=== PATIENT | female | born 1945 | race Caucasian/White ===

== ENCOUNTER 2017-03-01 18:39 | Emergency (ER) | payer MEDICARE ==
[2017-03-01 19:05] VITALS: RESP 16
--- NOTE | 2017-03-01 21:26 | ED ---
General Adult HPI - General Chief complaint: Eye Problems Stated complaint: blurry vision following med change Time Seen by Provider: 03/01/17 20:16 Source: patient, family, RN notes reviewed Mode of arrival: ambulatory Limitations: no limitations - History of Present Illness Initial comments: Chief complaint and history of present illness this is a 71-year-old female who for the last week has been using a new insulin medication Toujeo.. After starting use she noticed slight blurred vision on the right eye. And slight watering. She was told to come the emergency room. Patient states that her vision is otherwise good with her glasses on and when she raises her eyelid. She does present with mild edema to the right eyelid as opposed to the left mild redness along upper eyelid rim. - Related Data Home Medications Medication Instructions Recorded Confirmed Citalopram Hydrobromide 20 mg PO DAILY 03/01/17 03/01/17 [Citalopram HBr] Furosemide [Lasix] 20 mg PO DAILY 03/01/17 03/01/17 INSULIN LISPRO (humaLOG) [HumaLOG] 30 units SQ AC-TID 03/01/17 03/01/17 Insulin Glargine,Hum.rec.anlog 35 unit SQ DAILY 03/01/17 03/01/17 [Toujeo Solostar] Levothyroxine Sodium [Synthroid] 100 mcg PO DAILY 03/01/17 03/01/17 Metoprolol Succinate (ER) [Toprol 100 mg PO DAILY 03/01/17 03/01/17 Xl] Potassium Chloride [Klor-Con 10] 10 meq PO DAILY 03/01/17 03/01/17 glyBURIDE [Diabeta] 5 mg PO AC-BID 03/01/17 03/01/17 Allergies Allergy/AdvReac Type Severity Reaction Status Date / Time metformin Allergy Diarrhea Verified 03/01/17 19:05 Review of Systems ROS Statement: Those systems with pertinent positive or pertinent negative responses have been documented in the HPI. Review of systems no complaints other than listed above history of COPD insulin- dependent diabetes, she has eye disorders being followed by an venue attendant. Hyperlipidemia. The patient's heart catheterization with a stent intact. She hasn't had had a . She has ALLERGIES to metformin. Family history noncontributory. Non-drinker. Former smoker. ROS Other: All systems not noted in ROS Statement are negative. Past Medical History Past Medical History: COPD, Diabetes Mellitus, Eye Disorder, Hyperlipidemia History of Any Multi-Drug Resistant Organisms: None Reported Past Surgical History: Section, Heart Catheterization With Stent Past Psychological History: No Psychological Hx Reported Smoking Status: Former smoker Past Alcohol Use History: None Reported Past Drug Use History: None Reported General Exam - General Exam Comments Initial Comments: General: The patient is awake and alert, in no distress, and does not appear acutely ill. With a complaint of slight sensation of blurred vision to the right eye but not the left. Medications include Toujeo. Up to date states underwear occasions she might have angioedema or cataracts with this medication. Eye: Pupils are equal, round and reactive to light, extra-ocular movements are intact ; there is normal conjunctiva bilaterally. No signs of icterus. The right eyelid appears mildly more edematous than the left. The lid margin is mildly reddened. Patient admits that when she lifts her eyelid blurred vision decreases and goes away. It appears as though she has mild blepharitis for unilateral angioedema. She does complain of more tearing out of the right eye. No pain. Neurological: No neuro deficits, no signs of stroke. Limitations: no limitations Course Vital Signs 03/01/17 19:01 Temperature 96.9 F L Pulse Rate 77 Respiratory 16 Rate Blood Pressure 122/58 O2 Sat by Pulse 95 Oximetry Medical Decision Making - Medical Decision Making Medical decision-making. On physical examination appears to the right eyelid is slightly edematous. The lid margin on the upper eyelid is mildly red but no stye could be seen. The lids were everted no chest lesions were noted. Her visual acuity is normal with glasses. Less blurred and no blurriness when she mechanically lifts her eyelid at of the way. The patient will be referred to her venue attendant. We discussed possibility of ALLERGIC reaction, angioedema possibly related to her new insulin and/or blepharitis. There is no crustiness in the morning, no foreign body sensation, no pain. Just a sensation of fullness in the eyelid. Patient will be told to take antihistamine. If she can stop taking the new insulin preparation and go back to her old insulin she should. Disposition Clinical Impression: Angioedema Disposition: HOME SELF-CARE Condition: Fair Instructions: Angioedema (ED) Additional Instructions: Notify your doctor and I suggest stopping the Toujeo insulin shots. Use an antihistamine such as Claritin [id number]. Follow-up with the venue attendant and family doctor. Referrals: Matt Eden III, MD [Primary Care Provider] - 1-2 days Time of Disposition: 21:26
[2017-03-01 21:41] VITALS: BP 142/60; PULSE 68; TEMP 97.4
== END 2017-03-01 21:38 | disposition home or self-care (01) ==
LOC: EC 18:39
DX: T78.3XXA Angioneurotic edema, initial encounter (principal); E11.9 Type 2 diabetes mellitus without complications; Z87.891 Personal history of nicotine dependence; Z88.8 Allergy status to other drugs, medicaments and biological substances; Z79.4 Long term (current) use of insulin; Z79.84 Long term (current) use of oral hypoglycemic drugs; Z79.899 Other long term (current) drug therapy
CPT/HCPCS: 99283

== ENCOUNTER → 2017-05-24 | Outpatient (CLI) | payer MEDICARE ==
--- NOTE | 2017-05-24 11:39 | FL ---
EXAMINATION TYPE: FL barium swallow DATE OF EXAM: 05/24/2017 COMPARISON: NONE HISTORY: Myasthenia gravis, food getting stuck TECHNIQUE: A single contrast UGI study is performed. FINDINGS: 9 seconds of fluoroscopy time was provided. Fluoroscopic imaging overhead radiographs were obtained. Esophagus dilates to normal caliber has normal contour to the gastroesophageal junction. Gastroesopha geal junction opens to normal caliber. A secondary contraction was evident during the examination. A few mild tertiary contractions may be p resent during the exam. There is incomplete stripping of the esophageal bolus the horizontal drinking position. IMPRESSIONS: 1. Mild presbyesophagus. No acute abnormality evident
== END | disposition home or self-care (01) ==
LOC: RADFLWHC 10:08
PROVIDERS: ATTEND Psychiatry & Neurology Neurology
DX: K22.8 Other specified diseases of esophagus (principal)
CPT/HCPCS: 74220

== ENCOUNTER → 2018-02-05 | Outpatient (CLI) | payer MEDICARE ==
--- NOTE | 2018-02-07 11:38 | MM ---
Reason for exam: screening (asymptomatic). Last mammogram was performed 2 years and 9 months ago. History: Patient is postmenopausal. Physical Findings: A clinical breast exam by your physician is recommended on an annual basis and results should be correlated with mammographic findings. MG 3D Screening Mammo W/Cad Bilateral CC and MLO view(s) were taken. Prior study comparison: May 11, 2015, mammogram. There are scattered fibroglandular densities. Stable faint calcifications central posterior left breast. No significant changes when compared with prior studies. ASSESSMENT: Negative, BI-RAD 1 RECOMMENDATION: Routine screening mammogram of both breasts in 1 year.
== END | disposition home or self-care (01) ==
LOC: RADMAMWWP 17:00
PROVIDERS: ATTEND Family Medicine
DX: Z12.31 Encounter for screening mammogram for malignant neoplasm of breast (principal)
CPT/HCPCS: 77063; 77067

== ENCOUNTER → 2019-01-03 | Outpatient (CLI) | payer MEDICARE ==
--- NOTE | 2019-01-03 10:39 | US ---
EXAMINATION TYPE: US abdomen complete DATE OF EXAM: 01/03/2019 COMPARISON: NONE CLINICAL HISTORY: K80.80 OTHER CHOLELITHIASIS,R19.7 DIARRHEA. EXAM MEASUREMENTS: Liver Length: 15.4 cm Gallbladder Wall: 0.2 cm CBD: 0.4 cm Spleen: 11.7 cm Right Kidney: 10.9 x 4.9 x 4.8 cm Left Kidney: 11.3 x 5.4 x 4.7 cm Patient morbidly obese. Technically difficult and limited study. Pancreas: somewhat obscured by bowel gas, heterogeneous Liver: Increased attenuation, decreased visualization of vessels suggestive of fatty infiltrate Gallbladder: cholelithiasis Evidence for sonographic Newton's sign: no CBD: limited view, appears wnl Spleen: wnl Right Kidney: cyst noted on superior pole measuring 3.3 x 3.0 x 2.8cm Left Kidney: lobular contour, cyst measuring 1.4 x 1.5 x 1.2cm Upper IVC: wnl Abd Aorta: obscured by bowel gas The intrahepatic portion of the IVC and proximal abdominal aorta are within normal limits. Common b ile duct is unremarkable. The visualized portions of the pancreas are homogenous. The spleen is unr emarkable. Kidneys are symmetric and free of hydronephrosis. No solid renal lesions are seen. IMPRESSION: 1. Probable hepatic steatosis. 2. Uncomplicated cholelithiasis. 3. Renal cystic changes.
== END | disposition home or self-care (01) ==
LOC: RADUSWWP 09:25
PROVIDERS: ATTEND Family Medicine
DX: K80.20 Calculus of gallbladder without cholecystitis without obstruction (principal); N28.1 Cyst of kidney, acquired; R19.7 Diarrhea, unspecified
CPT/HCPCS: 76700

== ENCOUNTER → 2019-01-14 | Outpatient (CLI) | payer MEDICARE ==
--- NOTE | 2019-01-15 10:13 | CT ---
EXAMINATION TYPE: CT abdomen wo con DATE OF EXAM: 01/14/2019 COMPARISON: Ultrasound abdomen 01/03/2019 HISTORY: Disorder of kidney/ureter. Abnormal ultrasound CT DLP: 648 mGycm Automated exposure control for dose reduction was used. TECHNIQUE: Helical acquisition of images was performed from the lung bases through the top of iliac crest to include entire abdomen following oral contrast only. CONTRAST: Performed with Oral Contrast and without IV contrast. FINDINGS: Lack of intravenous contrast could compromise sensitivity. Some calcification present at th e root of aorta and likely within the coronary arteries LUNG BASES: No significant abnormality is appreciated. LIVER/GB: Low-attenuation within the liver likely due to hepatic steatosis, there are multiple gallst ones within the gallbladder. PANCREAS: No significant abnormality is seen. SPLEEN: No significant abnormality is seen. ADRENALS: No significant abnormality is seen. KIDNEYS: Exophytic hypodense focus in the upper pole the right kidney measures 3.5 cm and likely repr esents simple cyst. Left kidney shows posterior cortical cyst measuring 15 mm also likely representin g simple cortical cyst. BOWEL: No significant abnormality is seen. LYMPH NODES: No significan abnormality is appreciated. OSSEOUS STRUCTURES: No significant abnormality is seen. FREE AIR: No Free Air visible ASCITES: None visible. RETROPERITONEAL ADENOPATHY: No Retroperitoneal Adenopathy visible. OTHER: Atheromatous changes present within the aorta iliac locations. Degenerative disc changes, face t arthropathy visualized lumbar spine. IMPRESSION: NONCONTRAST EXAM. CHOLELITHIASIS. PROBABLE HEPATIC STEATOSIS. PROBABLE SIMPLE CYSTS IN THE KIDNEYS.
== END | disposition home or self-care (01) ==
LOC: RADCTMAIN 15:37
PROVIDERS: ATTEND Family Medicine
DX: K80.20 Calculus of gallbladder without cholecystitis without obstruction (principal)
CPT/HCPCS: 74150; 82565; 84520

== ENCOUNTER 2020-05-07 11:28 | Observation (INO) | payer MEDICARE ==
--- NOTE | 2020-05-07 12:27 | XR ---
EXAMINATION TYPE: XR chest 2V DATE OF EXAM: 05/07/2020 COMPARISON: Chest CT May 30, 2017 HISTORY: Altered mental status and weakness. TECHNIQUE: Frontal and lateral views of the chest are obtained. FINDINGS: There is mild chronic parenchymal changes bilaterally without suspicious new focal air spa ce opacity, pleural effusion, or pneumothorax seen. The cardiac silhouette size is stable and upper limits of normal with atherosclerotic change in the aortic knob. The osseous structures are intact. IMPRESSION: No acute cardiopulmonary process. No significant change from prior.
[2020-05-07 12:39] LABS: Basophils # (A) 0.1 k/uL (0-0.2); Basophils % (A) 1 %; Eosinophils # (A) 0.6 k/uL (0-0.7); Eosinophils % (A) 5 %; HCT 43.4 % (34.0-46.0); HGB 14.1 gm/dL (11.4-16.0); Lymphocytes # (A) 1.8 k/uL (1.0-4.8); Lymphocytes % (A) 14 %; MCH 28.3 pg (25.0-35.0); MCHC 32.4 g/dL (31.0-37.0); MCV 87.4 fL (80.0-100.0); Mean Platelet Volume 7.3; Monocytes # (A) 0.7 k/uL (0-1.0); Monocytes % (A) 6 %; Neutrophils % (A) 73 %; Platelet Count 263 k/uL (150-450); RBC 4.96 m/uL (3.80-5.40); RDW 13.6 % (11.5-15.5); WBC 12.3 k/uL (3.8-10.6)
[2020-05-07 12:48] LABS: Albumin 4.2 g/dL (3.5-5.0); Calcium 9.7 mg/dL (8.4-10.2); Total Bilirubin 0.8 mg/dL (0.2-1.3); Total Protein 7.1 g/dL (6.3-8.2)
[2020-05-07 13:07] LABS: Potassium 5.7 mmol/L (3.5-5.1)
[2020-05-07 13:13] LABS: INR 0.9 (<1.2); Partial Thromboplastin Time 23.3 sec (22.0-30.0); Prothrombin Time 9.6 sec (9.0-12.0)
[2020-05-07 14:00] VITALS: RESP 16
--- NOTE | 2020-05-07 14:07 | CT ---
EXAMINATION TYPE: CT brain wo con DATE OF EXAM: 05/07/2020 HISTORY: Neuro deficit acute onset. Code stroke. Headache this week with difficulty speaking today. CT DLP: 1110.8 mGycm. Automated Exposure Control for Dose Reduction was Utilized. TECHNIQUE: CT scan of the head is performed without contrast. COMPARISON: None. FINDINGS: There is no acute intracranial hemorrhage or midline shift identified. There is diffuse v entricular and sulcal prominence consistent with diffuse age-related cerebral atrophy. There is low- attenuation in the periventricular white matter consistent with chronic small vessel ischemic change. Hyperostosis frontalis. The globes are intact and the visualized sinuses are clear. IMPRESSION: No acute intracranial hemorrhage or midline shift. There is mild to moderate diffuse ag e-related cerebral atrophy and chronic small vessel ischemic change noted.
--- NOTE | 2020-05-07 14:10 | ED ---
Neuro HPI - General Source: patient Mode of arrival: ambulatory Limitations: no limitations - History of Present Illness Is the patient presenting with stroke symptoms?: No <Marilee Varner - Last Filed: 05/07/20 14:36> <KinzaShmuel Ladonna - Last Filed: 05/07/20 15:10> - General Chief Complaint: Neuro Symptoms/Deficit Stated Complaint: neuro deficit Time Seen by Provider: 05/07/20 11:40 - History of Present Illness Initial Comments: 74-year-old female presenting today for chief complaint of on and off headaches. Patient states that she has had a headache since 05/01. She states that it has occurred on and off. She denies sudden onset of being the worst headache of her life she states that her younger years she had history of chronic migraines but has not had some quite some time. Patient states as above her left eyebrow. Patient states that this occurred on Sunday and they have been on and off intermittent signs. She denies current headache but states while she was at her hair salon this morning she difficulty articular speech she states that this resolved and she is not experienced since she states she did notice yesterday she felt like she had left-sided facial tingling and this morning when she woke up she had right hand tingling, and difference in sensation than the left hand. Patient states all symptoms are resolved at this time she denies any visual changes diplopia current headache nausea vomiting head trauma she denies any neck stiffness. Patient denies a chest pain shortness of breath palpitations or known history of atrial fibrillation. Patient denies any previous CVA or TIAs. Patient states that she believes she is dyslipidemia. Patient denies any current weakness she denies any dizziness or off balance sensation. Patient a ppears well and nontoxic and is within good spirits upon arrival. Signs within acceptable limits. NIH 0. (Marilee Varner) - Related Data Home Medications: Home Medications Medication Instructions Recorded Confirmed Citalopram Hydrobromide 20 mg PO DAILY 03/01/17 05/07/20 [Citalopram HBr] Furosemide [Lasix] 20 mg PO DAILY 03/01/17 03/01/17 Levothyroxine Sodium [Synthroid] 100 mcg PO DAILY 03/01/17 03/01/17 Potassium Chloride [Klor-Con 10] 10 meq PO DAILY 03/01/17 05/07/20 glyBURIDE [Diabeta] 5 mg PO AC-BID 03/01/17 05/07/20 Allergy Tablet Unknown 0 mg PO DAILY 05/07/20 05/07/20 Aspirin [Adult Low Dose Aspirin EC] 81 mg PO DAILY 05/07/20 05/07/20 Exenatide Microspheres [Bydureon 2 mg SQ Q7D 05/07/20 05/07/20 Pen] Insulin Glargine,Hum.rec.anlog 55 unit SQ HS 05/07/20 05/07/20 [Lantus Solostar] Januvia Unknown Strength 0 mg PO DAILY 05/07/20 05/07/20 Meloxicam [Mobic] 15 mg PO DAILY 05/07/20 05/07/20 Metoprolol Succinate [Toprol XL] 25 mg PO DAILY 05/07/20 05/07/20 Pyridostigmine [Mestinon] 60 mg PO TID 05/07/20 05/07/20 Simvastatin 10 mg PO DAILY 05/07/20 05/07/20 Allergies/Adverse Reactions: Allergies Allergy/AdvReac Type Severity Reaction Status Date / Time metformin Allergy Diarrhea Verified 05/07/20 13:20 Review of Systems ROS Other: All systems not noted in ROS Statement are negative. <Marilee Varner - Last Filed: 05/07/20 14:36> ROS Other: All systems not noted in ROS Statement are negative. <Shmuel Echols - Last Filed: 05/07/20 15:10> ROS Statement: Those systems with pertinent positive or pertinent negative responses have been documented in the HPI. General Exam Limitations: no limitations Head exam: Present: atraumatic Eye exam: Present: normal appearance, PERRL Pupils: Present: normal accommodation Respiratory exam: Present: normal lung sounds bilaterally Cardiovascular Exam: Present: regular rate, normal rhythm GI/Abdominal exam: Present: soft, normal bowel sounds Rectal exam: Present: deferred Neurological exam: Present: alert, oriented X3, CN II-XII intact, normal gait Expanded Neurological exam: Present: other (memory intact, usp, intermediate and immediate) Patient oriented to: Present: person, place, time Speech: Present: fluid speech Cranial nerves: EOM's Intact: Normal, Gag Reflex: Normal, Tongue Deviation: Normal, Facial Sensation: Normal Upper motor neuron: Nirav Neglect: Normal, Pronator Drift: Normal, Sensory Extinction: Normal Sensory exam: Upper Extremity Light Touch: Normal, Upper Extremity Temperature: Normal, Lower Extremity Light Touch: Normal, Lower Extremity Temperature: Normal Motor strength exam: RUE: 5, LUE: 5, RLE: 5, LLE: 5 (painful left knee) DTR: Patellar (R): 2+, Patellar (L): 2+ Eye Response: (4) open spontaneously Motor Response: (6) obeys commands Verbal Response: (5) oriented Psychiatric exam: Present: normal affect <Marilee Varner L - Last Filed: 05/07/20 14:36> Stroke MDM - Lab Data Result diagrams: 05/07/20 12:07 05/07/20 12:07 <Marilee Varner L - Last Filed: 05/07/20 14:36> - Lab Data Result diagrams: 05/07/20 12:07 05/07/20 12:07 <Shmuel Echols N - Last Filed: 05/07/20 15:10> - Lab Data Lab Results 05/07/20 05/07/20 05/07/20 Range/Units 12:07 12:07 12:07 WBC 12.3 H (3.8-10.6) k/uL RBC 4.96 (3.80-5.40) m/uL Hgb 14.1 (11.4-16.0) gm/dL Hct 43.4 (34.0-46.0) % MCV 87.4 (80.0-100.0) fL MCH 28.3 (25.0-35.0) pg MCHC 32.4 (31.0-37.0) g/dL RDW 13.6 (11.5-15.5) % Plt Count 263 (150-450) k/uL Neutrophils % 73 % Lymphocytes % 14 % Monocytes % 6 % Eosinophils % 5 % Basophils % 1 % Neutrophils # 9.0 H (1.3-7.7) k/uL Lymphocytes # 1.8 (1.0-4.8) k/uL Monocytes # 0.7 (0-1.0) k/uL Eosinophils # 0.6 (0-0.7) k/uL Basophils # 0.1 (0-0.2) k/uL PT 9.6 (9.0-12.0) sec INR 0.9 (<1.2) APTT 23.3 (22.0-30.0) sec Sodium 133 L (137-145) mmol/L Potassium 5.7 H (3.5-5.1) mmol/L Chloride 104 (98-107) mmol/L Carbon Dioxide 23 (22-30) mmol/L Anion Gap 6 mmol/L BUN 21 H (7-17) mg/dL Creatinine 0.94 (0.52-1.04) mg/dL Est GFR (CKD-EPI)AfAm 69 (>60 ml/min/1.73 sqM) Est GFR (CKD-EPI)NonAf 60 (>60 ml/min/1.73 sqM) Glucose 232 H (74-99) mg/dL Calcium 9.7 (8.4-10.2) mg/dL Total Bilirubin 0.8 (0.2-1.3) mg/dL AST 39 H (14-36) U/L ALT 26 (4-34) U/L Alkaline Phosphatase 93 (38-126) U/L Troponin I (0.000-0.034) ng/mL Total Protein 7.1 (6.3-8.2) g/dL Albumin 4.2 (3.5-5.0) g/dL 05/07/20 Range/Units 12:07 WBC (3.8-10.6) k/uL RBC (3.80-5.40) m/uL Hgb (11.4-16.0) gm/dL Hct (34.0-46.0) % MCV (80.0-100.0) fL MCH (25.0-35.0) pg MCHC (31.0-37.0) g/dL RDW (11.5-15.5) % Plt Count (150-450) k/uL Neutrophils % % Lymphocytes % % Monocytes % % Eosinophils % % Basophils % % Neutrophils # (1.3-7.7) k/uL Lymphocytes # (1.0-4.8) k/uL Monocytes # (0-1.0) k/uL Eosinophils # (0-0.7) k/uL Basophils # (0-0.2) k/uL PT (9.0-12.0) sec INR (<1.2) APTT (22.0-30.0) sec Sodium (137-145) mmol/L Potassium (3.5-5.1) mmol/L Chloride (98-107) mmol/L Carbon Dioxide (22-30) mmol/L Anion Gap mmol/L BUN (7-17) mg/dL Creatinine (0.52-1.04) mg/dL Est GFR (CKD-EPI)AfAm (>60 ml/min/1.73 sqM) Est GFR (CKD-EPI)NonAf (>60 ml/min/1.73 sqM) Glucose (74-99) mg/dL Calcium (8.4-10.2) mg/dL Total Bilirubin (0.2-1.3) mg/dL AST (14-36) U/L ALT (4-34) U/L Alkaline Phosphatase (38-126) U/L Troponin I 0.012 (0.000-0.034) ng/mL Total Protein (6.3-8.2) g/dL Albumin (3.5-5.0) g/dL - Medical Decision Making 74-year-old female with left-sided facial numbness, right upper extremity numbness, symptoms resolved. Workup in the emergency department for and scrotal hemorrhage or mass effect. Patient has an NIH of 0. She normally takes a baby aspirin but has been off this medication secondary to a procedure plan for her knee. She did receive a full strength aspirin 325 mg as well as Plavix in the emergency department. I discussed case with Dr. Granda who doesn't recommend these medications. I also discussed the case with Dr. Merchant who will accept admission. Dr. Granda is okay with admission and recommends MRI. This is in the setting of current neurology coverage however there is no neurology coverage over the weekend. (Shmuel Echols) Past Medical History Past Medical History: COPD, Diabetes Mellitus, Eye Disorder, Hyperlipidemia History of Any Multi-Drug Resistant Organisms: None Reported Past Surgical History: Section, Heart Catheterization With Stent Past Psychological History: No Psychological Hx Reported Smoking Status: Never smoker Past Alcohol Use History: Occasional Past Drug Use History: None Reported <Marilee Varner - Last Filed: 05/07/20 14:36> Course Vital Signs 05/07/20 05/07/20 05/07/20 11:30 13:59 14:04 Temperature 98.2 F Pulse Rate 72 68 Respiratory 18 16 Rate Blood Pressure 134/74 179/76 O2 Sat by Pulse 98 98 Oximetry Critical Care Time Critical Care Time: Yes Total Critical Care Time: 35 <Shmuel cEhols - Last Filed: 05/07/20 15:10> Disposition <Marilee Varner - Last Filed: 05/07/20 14:36> Is patient prescribed a controlled substance at d/c from ED?: No Decision to Admit Reason: Admit from EC Decision Date: 05/07/20 Decision Time: 15:10 <Shmuel Echols - Last Filed: 05/07/20 15:10> Clinical Impression: Alteration in speech, Facial paresthesia, TIA (transient ischemic attack) Disposition: ADMITTED IP TO THIS [facility] Condition: Stable Referrals: Matt Eden III, MD [Primary Care Provider] - 1-2 days
--- NOTE | 2020-05-07 14:17 | CT ---
EXAMINATION TYPE: CT angio head neck DATE OF EXAM: 05/07/2020 HISTORY: Neuro Deficit acute onset. Code stroke. Difficulty speaking today. COMPARISON: NONE CT DLP: 687.6 mGycm. Automated Exposure Control for Dose Reduction was Utilized. TECHNIQUE: CTA scan of the head and neck are performed with IV Contrast, patient injected with 65 mL of Isovue 370, axial images are obtained, coronal and sagittal reformatted images are reviewed. Thre e-D reconstructed images are created on an independent workstation and reviewed. FINDINGS: Carotid/Vascular Structures: Normal 3 vessel origin from aortic arch. Right common carotid artery mica ws normal origin from right brachiocephalic artery. There is mild to moderate mixed plaque at right c arotid bulb extending into proximal internal carotid artery without significant stenosis. Patent righ t external carotid artery without significant stenosis. There is mild mixed plaque along the mid aspe ct of the left common carotid artery. There is more severe mixed plaque in left carotid bulb with mor e dense calcified plaque extending into the external carotid artery causing significant stenosis. Lef t internal carotid artery shows no significant stenosis with minimal calcified plaque extending into it. Mild calcified plaque distal right vertebral artery. Vertebral arteries are patent to basilar junctio n. Patent bilateral posterior communicating arteries. No significant focal stenosis or aneurysmal fozia nge in the posterior circulation. Images of the anterior circulation show hypoplastic anterior commun icating artery. There is no significant focal stenosis or aneurysmal change. Other: Heterogeneity and subcentimeter nodularity in small-sized thyroid felt present. Moderate spurr ing C5-C6 and C6-C7 levels. Posterior spurring effaces the anterior thecal sac at these levels. IMPRESSION: 1. No significant stenosis or aneurysmal change at the level of the [place]. 2. No significant stenosis in common or internal carotid arteries bilaterally. Incidental significant stenosis in the left external carotid artery noted.
[2020-05-07] MEDS ORDERED: ASPIRIN 325 MG TAB PO STA ×2 (14:43→15:05)
[2020-05-07] MEDS ORDERED: CLOPIDOGREL 75 MG TAB PO STA (15:05)
[2020-05-07] MEDS ORDERED: ACETAMINOPHEN TAB 325 MG TAB PO PRN (15:05)
[2020-05-07] MEDS: SODIUM CHLORIDE 0.9% 1,000 ML IV SCH (15:51)
--- NOTE | 2020-05-07 16:31 | ECHOF ---
Referral Reason:Thrombus MEASUREMENTS -------- HEIGHT: 157.5 cm WEIGHT: 102.1 kg BP: 176/76 RVIDd: 3.1 cm (< 3.3) IVSd: 1.4 cm (0.6 - 1.1) LVIDd: 5.2 cm (3.9 - 5.3) LVPWd: 1.5 cm (0.6 - 1.1) IVSs: 2.0 cm LVIDs: 4.0 cm LVPWs: 1.7 cm LA Diam: 3.7 cm (2.7 - 3.8) LAESV Index (A-L): 23.22 ml/m Ao Diam: 3.3 cm (2.0 - 3.7) AV Cusp: 2.2 cm (1.5 - 2.6) MV EXCURSION: 12.842 mm (> 18.000) MV EF SLOPE: 52 mm/s (70 - 150) EPSS: 0.4 cm MV E Eduardo: 0.67 m/s MV DecT: 324 ms MV A Eduardo: 0.99 m/s MV E/A Ratio: 0.67 FINDINGS -------- Sinus rhythm. This was a technically good study. The left ventricular size is normal. There is moderate concentric left ventricular hypertrophy. O verall left ventricular systolic function is normal with, an EF between 60 - 65 %. The right ventricle is normal in size. Normal LA size by volume 22+/-6 ml/m2. The right atrium is normal in size. Interatrial and interventricular septum intact. There is mild aortic valve sclerosis. The mitral valve is normal. The tricuspid valve appears structurally normal. Trace/mild (physiologic) pulmonic regurgitation. The aortic root size is normal. IVC Not well visulized. There is no pericardial effusion. CONCLUSIONS -------- 1. The left ventricular size is normal. 2. There is moderate concentric left ventricular hypertrophy. 3. Overall left ventricular systolic function is normal with, an EF between 60 - 65 %. 4. Trace/mild (physiologic) pulmonic regurgitation. 5. There is no pericardial effusion. DENTAL RECEPTIONIST: Adelaide Zuluaga RD
[2020-05-07 18:12] LABS: Glucose,Whole Blood 178 mg/dL (75-99)
[2020-05-07 20:59] LABS: Glucose,Whole Blood 221 mg/dL (75-99)
[2020-05-07] MEDS: PYRIDOSTIGMINE 60 MG TAB PO SCH (20:59)
[2020-05-07] MEDS ORDERED: INSULIN DETEMIR (LEVEMIR) 100 UNIT/ML SYR SQ SCH (21:00)
[2020-05-07] MEDS: INSULIN ASPART (NovoLOG) 100 UNIT/ML VIAL SQ SCH (21:06)
[2020-05-08] MEDS: SODIUM CHLORIDE 0.9% 1,000 ML IV SCH (01:04)
[2020-05-08 04:18] LABS: Cholesterol 158 mg/dL (<200); HDL Cholesterol 29 mg/dL (40-60); LDL Cholesterol,Calculated 79 mg/dL (0-99); Triglycerides 251 mg/dL (<150)
[2020-05-08] MEDS ORDERED: LEVOTHYROXINE 100 MCG TAB PO SCH (06:00)
[2020-05-08 06:45] LABS: Glucose,Whole Blood 147 mg/dL (75-99)
[2020-05-08] MEDS: INSULIN ASPART (NovoLOG) 100 UNIT/ML VIAL SQ SCH ×2 (06:57→13:23)
[2020-05-08] MEDS: PYRIDOSTIGMINE 60 MG TAB PO SCH (08:08)
[2020-05-08] MEDS ORDERED: MELOXICAM 7.5 MG TAB PO SCH (09:00)
[2020-05-08] MEDS ORDERED: ATORVASTATIN 10 MG TAB PO SCH (09:00)
[2020-05-08] MEDS ORDERED: CITALOPRAM HYDROBROMIDE 20 MG TAB PO SCH (09:00)
[2020-05-08] MEDS ORDERED: METOPROLOL SUCCINATE (ER) 25 MG TAB.ER.24H PO SCH (09:00)
[2020-05-08] MEDS ORDERED: ATORVASTATIN 40 MG TAB PO SCH (09:00)
[2020-05-08] MEDS ORDERED: ASPIRIN 81 MG PO SCH (09:00)
[2020-05-08] MEDS ORDERED: ASPIRIN 325 MG TAB PO SCH (09:00)
[2020-05-08 09:12] VITALS: PULSE 68
[2020-05-08 13:21] LABS: Glucose,Whole Blood 220 mg/dL (75-99)
--- NOTE | 2020-05-08 13:52 | MR ---
MR brain without contrast HISTORY: Neuro deficit, stroke suspected Multiplanar multisequence imaging through the brain There is no restricted diffusion to suggest subacute ischemia. There are normal vascular flow voids p resent. There is no hemorrhage or hydrocephalus. Corpus callosum, pituitary, cervical medullary junct ion, cerebellopontine angles are normal. Periventricular white matter shows scattered hyperintensitie s on inversion recovery T2-weighted sequences. There is cortical atrophy. Orbits show symmetric appea shanti. IMPRESSION: Age-related changes of atrophy and probable chronic small vessel ischemia.
[2020-05-08 14:58] LABS: Basophils % (A) 1 %; Eosinophils # (A) 0.2 k/uL (0-0.7); Eosinophils % (A) 3 %; HCT 38.2 % (34.0-46.0); Lymphocytes # (A) 1.4 k/uL (1.0-4.8); Lymphocytes % (A) 18 %; MCH 28.3 pg (25.0-35.0); MCHC 31.6 g/dL (31.0-37.0); MCV 89.6 fL (80.0-100.0); Monocytes # (A) 0.4 k/uL (0-1.0); Monocytes % (A) 5 %; Neutrophils # (A) 5.9 k/uL (1.3-7.7); Neutrophils % (A) 73 %; Platelet Count 201 k/uL (150-450); RBC 4.26 m/uL (3.80-5.40); RDW 13.9 % (11.5-15.5); WBC 8.1 k/uL (3.8-10.6)
[2020-05-08 15:16] LABS: Calcium 8.9 mg/dL (8.4-10.2); Potassium 4.5 mmol/L (3.5-5.1)
[2020-05-08 17:43] VITALS: BP 120/66; TEMP 97.8
--- NOTE | 2020-05-21 16:03 | P.HPIM ---
History of Present Illness H&P Date: 05/08/20 Chief Complaint: neuro deficit 74-year-old female presenting today for chief complaint of on and off headaches. Patient states that she has had a headache since 05/01. She states that it has occurred on and off. She denies sudden onset of being the worst headache of her life she states that her younger years she had history of chronic migraines but has not had some quite some time. Patient states as above her left eyebrow. Patient states that this occurred on Sunday and they have been on and off intermittent signs. She denies current headache but states while she was at her hair salon this morning she difficulty articular speech she states that this resolved and she is not experienced since she states she did notice yesterday she felt like she had left-sided facial tingling and this morning when she woke up she had right hand tingling, and difference in sensation than the left hand. Patient states all symptoms are resolved at this time she denies any visual changes diplopia current headache nausea vomiting head trauma she denies any neck stiffness. Patient denies a chest pain shortness of breath palpitations or known history of atrial fibrillation. Patient denies any previous CVA or TIAs. Patient states that she believes she is dyslipidemia. Patient denies any current weakness she denies any dizziness or off balance sensation. Patient appears well and nontoxic and is within good spirits upon arrival. Signs within acceptable limits. NIH 0. Past Medical History Past Medical History: COPD, Diabetes Mellitus, Eye Disorder, Hyperlipidemia, Hypertension, Osteoarthritis (OA) Additional Past Medical History / Comment(s): gets Cortisone injections in both knees. skin cancer removed from nose. Myasthenia Gravis History of Any Multi-Drug Resistant Organisms: None Reported Past Surgical History: Section, Heart Catheterization With Stent Past Anesthesia/Blood Transfusion Reactions: No Reported Reaction Date of Last Stent Placement:: 2004 Past Psychological History: No Psychological Hx Reported Smoking Status: Never smoker Past Alcohol Use History: Occasional Past Drug Use History: None Reported Additional Drug Use History / Comment(s): smoked very little as a teenager only - Past Family History Mother Family Medical History: Cancer, Myocardial Infarction ([place]) Father Family Medical History: COPD, Rheumatoid Arthritis ([place]) Medications and Allergies Home Medications Medication Instructions Recorded Confirmed Type Citalopram Hydrobromide 20 mg PO DAILY 03/01/17 05/07/20 History [Citalopram HBr] Levothyroxine Sodium [Synthroid] 100 mcg PO DAILY 03/01/17 05/07/20 History Potassium Chloride [Klor-Con 10] 10 meq PO DAILY 03/01/17 05/07/20 History glyBURIDE [Diabeta] 5 mg PO AC-BID 03/01/17 05/07/20 History Aspirin [Adult Low Dose Aspirin EC] 81 mg PO DAILY 05/07/20 05/07/20 History Exenatide Microspheres [Bydureon 2 mg SQ Q7D 05/07/20 05/07/20 History Pen] Insulin Glargine,Hum.rec.anlog 55 unit SQ HS 05/07/20 05/07/20 History [Lantus Solostar] Meloxicam [Mobic] 15 mg PO DAILY 05/07/20 05/07/20 History Meloxicam [Mobic] 15 mg PO DAILY 05/07/20 05/07/20 History Metoprolol Succinate [Toprol XL] 25 mg PO DAILY 05/07/20 05/07/20 History Pyridostigmine [Mestinon] 60 mg PO BID 05/07/20 05/07/20 History Simvastatin 10 mg PO DAILY 05/07/20 05/07/20 History sitaGLIPtin PHOSPHATE [Januvia] 50 mg PO DAILY 05/07/20 05/07/20 History Allergies Allergy/AdvReac Type Severity Reaction Status Date / Time metformin Allergy Diarrhea Verified 05/07/20 18:15 Physical Exam Vitals: Vital Signs Temp Pulse Pulse Resp BP BP BP 05/08/20 09:00 98.1 F 68 16 159/74 05/08/20 08:00 05/08/20 03:05 97.7 F 69 136/69 05/07/20 19:57 98.2 F 73 134/72 05/07/20 16:26 98.2 F 65 16 124/72 05/07/20 14:04 179/76 05/07/20 13:59 68 16 Pulse Ox 05/08/20 09:00 98 05/08/20 08:00 96 05/08/20 03:05 95 05/07/20 19:57 94 L 05/07/20 16:26 97 05/07/20 14:04 05/07/20 13:59 98 Intake and Output 05/07/20 05/08/20 05/08/20 22:59 06:59 14:59 Intake Total 225 Output Total 175 175 Balance 225 -175 -175 Intake: Oral 225 Output: Urine 175 175 Other: # Voids 1 1 1 Weight 102.058 kg Head exam: Present: atraumatic Eye exam: Present: normal appearance, PERRL Pupils: Present: normal accommodation Respiratory exam: Present: normal lung sounds bilaterally Cardiovascular Exam: Present: regular rate, normal rhythm GI/Abdominal exam: Present: soft, normal bowel sounds Rectal exam: Present: deferred Neurological exam: Present: alert, oriented X3, CN II-XII intact, normal gait; Sensory exam: Upper Extremity Light Touch: Normal, Upper Extremity Temperature: Normal, Lower Extremity Light Touch: Normal, Lower Extremity Temperature: Normal Motor strength exam: RUE: 5, LUE: 5, RLE: 5, LLE: 5 (painful left knee); DTR: Patellar (R): 2+, Patellar (L): 2+ Results CBC & Chem 7: 05/08/20 14:42 05/08/20 14:42 Labs: Abnormal Lab Results - Last 24 Hours (Table) 05/07/20 05/07/20 05/07/20 Range/Units 12:07 12:07 12:07 WBC 12.3 H (3.8-10.6) k/uL Neutrophils # 9.0 H (1.3-7.7) k/uL Sodium 133 L (137-145) mmol/L Potassium 5.7 H (3.5-5.1) mmol/L BUN 21 H (7-17) mg/dL Glucose 232 H (74-99) mg/dL POC Glucose (mg/dL) (75-99) mg/dL AST 39 H (14-36) U/L Triglycerides 251 H (<150) mg/dL HDL Cholesterol 29 L (40-60) mg/dL 05/07/20 05/07/20 05/08/20 Range/Units 18:09 20:58 06:43 WBC (3.8-10.6) k/uL Neutrophils # (1.3-7.7) k/uL Sodium (137-145) mmol/L Potassium (3.5-5.1) mmol/L BUN (7-17) mg/dL Glucose (74-99) mg/dL POC Glucose (mg/dL) 178 H 221 H 147 H (75-99) mg/dL AST (14-36) U/L Triglycerides (<150) mg/dL HDL Cholesterol (40-60) mg/dL Thrombosis Risk Factor Assmnt - Choose All That Apply Any of the Below Risk Factors Present?: Yes Each Factor Represents 1 point: Abnormal pulmonary function (COPD), Obesity (BMI >25) Other Risk Factors: Yes Each Risk Factor Represents 3 Points: Age 75 years or older Other congenital or acquired thrombophilia - If yes, enter type in comment: No Thrombosis Risk Factor Assessment Total Risk Factor Score: 5 Thrombosis Risk Factor Assessment Level: High Risk Assessment and Plan Assessment: 1. TIA versus CVA - Patient's symptoms completely resolved while in ED; patient was discussed with on-call neurology and was recommended to be started on aspirin 325 mg daily; patient received Plavix in ED which was not recommended to be continued by neurology; patient did undergo CTA head and neck to rule out large vessel occlusion which was unremarkable; neurology recommended admission for an MRI with outpatient follow-up if MRI is negative 2. Hyperkalemia; treated in ED; we will monitor electrolytes closely and treat as needed 3. Mild leukocytosis; possibly reactive; no signs of infection; monitor CBC 4. Mild renal injury; IV fluid hydration in form of normal saline; monitor strict COURTNEY's, daily weights, renal function and electrolytes DVT prophylaxis SCDs CODE STATUS; full code
--- NOTE | 2020-05-21 16:06 | P.DS ---
Providers Date of admission: 05/07/20 15:05 Expected date of discharge: 05/08/20 Attending physician: Raya Merchant Consults: 05/07/20 15:06 Consult Physician Routine Consulting Provider: Ramon Granda Consult Reason/Comments: TIA Do you want consulting provider notified?: Already Contacted Primary care physician: [facility] Course: 74-year-old female presenting today for chief complaint of on and off headaches. Patient states that she has had a headache since 05/01. She states that it has occurred on and off. She denies sudden onset of being the worst headache of her life she states that her younger years she had history of chronic migraines but has not had some quite some time. Patient states as above her left eyebrow. Patient states that this occurred on Sunday and they have been on and off intermittent signs. She denies current headache but states while she was at her hair salon this morning she difficulty articular speech she states that this resolved and she is not experienced since she states she did notice yesterday she felt like she had left-sided facial tingling and this morning when she woke up she had right hand tingling, and difference in sensation than the left hand. Patient states all symptoms are resolved at this time she denies any visual changes diplopia current headache nausea vomiting head trauma she denies any neck stiffness. Patient denies a chest pain shortness of breath palpitations or known history of atrial fibrillation. Patient denies any previous CVA or TIAs. Patient states that she believes she is dyslipidemia. Patient denies any current weakness she denies any dizziness or off balance sensation. Patient appears well and nontoxic and is within good spirits upon arrival. Signs within acceptable limits. NIH 0. Patient was given aspirin and Plavix in ED and on-call neurology was consulted; they recommended patient undergo CTA head and neck to rule out large vessel disease which was done in ED and was negative; patient was admitted to complete workup with an MRI; patient remained completely asymptomatic and MRI was negative; patient was discharged home to follow-up with outpatient neurology Patient Condition at Discharge: Stable Plan - Discharge Summary New Discharge Prescriptions: Continue glyBURIDE [Diabeta] 5 mg PO AC-BID Potassium Chloride [Klor-Con 10] 10 meq PO DAILY Citalopram Hydrobromide [Citalopram HBr] 20 mg PO DAILY Levothyroxine Sodium [Synthroid] 100 mcg PO DAILY Metoprolol Succinate [Toprol XL] 25 mg PO DAILY Aspirin [Adult Low Dose Aspirin EC] 81 mg PO DAILY Pyridostigmine [Mestinon] 60 mg PO BID Exenatide Microspheres [Bydureon Pen] 2 mg SQ Q7D Meloxicam [Mobic] 15 mg PO DAILY Insulin Glargine,Hum.rec.anlog [Lantus Solostar] 55 unit SQ HS Simvastatin 10 mg PO DAILY sitaGLIPtin PHOSPHATE [Januvia] 50 mg PO DAILY Meloxicam [Mobic] 15 mg PO DAILY Discharge Medication List Citalopram Hydrobromide [Citalopram HBr] 20 mg PO DAILY 03/01/17 [History] Levothyroxine Sodium [Synthroid] 100 mcg PO DAILY 03/01/17 [History] Potassium Chloride [Klor-Con 10] 10 meq PO DAILY 03/01/17 [History] glyBURIDE [Diabeta] 5 mg PO AC-BID 03/01/17 [History] Aspirin [Adult Low Dose Aspirin EC] 81 mg PO DAILY 05/07/20 [History] Exenatide Microspheres [Bydureon Pen] 2 mg SQ Q7D 05/07/20 [History] Insulin Glargine,Hum.rec.anlog [Lantus Solostar] 55 unit SQ HS 05/07/20 [History] Meloxicam [Mobic] 15 mg PO DAILY 05/07/20 [History] Meloxicam [Mobic] 15 mg PO DAILY 05/07/20 [History] Metoprolol Succinate [Toprol XL] 25 mg PO DAILY 05/07/20 [History] Pyridostigmine [Mestinon] 60 mg PO BID 05/07/20 [History] Simvastatin 10 mg PO DAILY 05/07/20 [History] sitaGLIPtin PHOSPHATE [Januvia] 50 mg PO DAILY 05/07/20 [History] Follow up Appointment(s)/Referral(s): Matt Eden III, MD [Primary Care Provider] - 1-2 days Patient Instructions/Handouts: Transient Ischemic Attack (DC) Discharge Disposition: HOME SELF-CARE
== END 2020-05-08 17:52 | disposition home or self-care (01) ==
LOC: EC 11:28 → 3NCARDOBS 15:05
PROVIDERS: ADMIT Internal Medicine; ATTEND Internal Medicine
DX: R51.9 Headache, unspecified (principal); R20.2 Paresthesia of skin; R47.9 Unspecified speech disturbances; J44.9 Chronic obstructive pulmonary disease, unspecified; E11.9 Type 2 diabetes mellitus without complications; E78.5 Hyperlipidemia, unspecified; Z95.5 Presence of coronary angioplasty implant and graft; D72.829 Elevated white blood cell count, unspecified; E87.5 Hyperkalemia; I10 Essential (primary) hypertension; Z79.1 Long term (current) use of non-steroidal anti-inflammatories (NSAID); Z79.82 Long term (current) use of aspirin; Z79.84 Long term (current) use of oral hypoglycemic drugs; Z79.890 Hormone replacement therapy; Z79.899 Other long term (current) drug therapy; Z82.49 Family history of ischemic heart disease and other diseases of the circulatory system; Z82.5 Family history of asthma and other chronic lower respiratory diseases; Z85.828 Personal history of other malignant neoplasm of skin
CPT/HCPCS: 96360; 96361; 99291; 36415; 94760; 93005; 93306; 97161; 80061; 80053; 80048; 84484; 85025 ×2; 85610; 85730; 83036; 71046; 70496; 70450; 70498; 70551; G0378 ×2; Q9967

== ENCOUNTER → 2020-06-03 | Outpatient (CLI) | payer MEDICARE ==
--- NOTE | 2020-06-03 10:59 | CT ---
EXAMINATION TYPE: CT lumbar spine wo con DATE OF EXAM: 06/03/2020 COMPARISON: CT abdomen 01/14/2019 HISTORY: 74-year-old female M47.817, low back pain x 4 weeks TECHNIQUE: Contiguous axial scanning of the lumbar spine without IV contrast. Coronal and sagittal re constructions performed. CT DLP: 1621.7 mGycm Automated exposure control for dose reduction was used. FINDINGS: 9 mm benign lipid rich left adrenal adenoma. Partially visualized gallstones measuring up to 1.4 cm. Renal cysts measuring up to 3.3 cm. Cortical defect lateral upper pole left kidney suggesting sequela of prior vascular or infectious insult. Superior endplate deformity of T12 with resultant anterior wedging and 25% anterior height loss. No p aravertebral soft tissue abnormality or retropulsion into the spinal canal. Findings chronic when com pared to 01/14/2019. Hypertrophic facet arthropathy is present throughout. Some bridging anterior endplate spondylosis towards the right at L1-L3 levels. Grade 1 retrolisthesis just below at L3-L4. Moderate degenerative disc disease is present throughout with variable disc desiccation, disc narrowi ng, and disc bulging. Additional ligamentum flavum thickening at L4-L5. Bulging discs or disc osteophyte complexes along with ligamentum flavum thickening results in focal s evere spinal canal stenosis at L4-L5 and mild at T11-T12 and L1-L2. On the left, changes result in moderate neural foraminal stenosis at L4-L5 and L5-S1, more mild at L3 -L4. On the right, changes result in mild to moderate neural foraminal narrowing at L4-L5 and L5-S1 and mi ld at L3-L4. IMPRESSION: 1. OLD SUPERIOR ENDPLATE DEFORMITY WITH SECONDARY ANTERIOR WEDGING AT T12. 2. BRIDGING ANTERIOR ENDPLATE SPONDYLOSIS FROM L1-L3 LEVELS. MODERATE DEGENERATIVE DISC DISEASE BELOW AT L3-L4 AND L4-L5 ALONG WITH MULTILEVEL HYPERTROPHIC FACET ARTHROPATHY AND DEGENERATIVE GRADE 1 RET ROLISTHESIS AT L3-L4. 3. CHANGES RESULT IN A FOCAL SEVERE SPINAL CANAL STENOSIS AT L4-L5 AND MILD AT T11-T12 AND L1-L2. 4. VARIABLE MODERATE NEURAL FORAMINAL STENOSES IN THE LOWER LUMBAR SPINE ABOVE. 5. CHOLELITHIASIS.
== END | disposition home or self-care (01) ==
LOC: RADCTMAIN 08:21
PROVIDERS: ATTEND Physical Medicine & Rehabilitation
DX: M48.061 Spinal stenosis, lumbar region without neurogenic claudication (principal); M48.07 Spinal stenosis, lumbosacral region; M43.16 Spondylolisthesis, lumbar region; M51.36 Other intervertebral disc degeneration, lumbar region; M47.816 Spondylosis without myelopathy or radiculopathy, lumbar region
CPT/HCPCS: 72131

== ENCOUNTER 2020-07-05 18:39 | Emergency (ER) | payer MEDICARE ==
[2020-07-05] MEDS ORDERED: METOCLOPRAMIDE 5 MG/ML 2 ML VIAL IVP STA (19:33)
[2020-07-05] MEDS ORDERED: MORPHINE SULFATE 4 MG/ML SYRINGE IV STA (19:33)
[2020-07-05] MEDS ORDERED: SODIUM CHLORIDE 0.9% 500 ML 500 ML IV STA (19:33)
[2020-07-05] MEDS ORDERED: diphenhydrAMINE 50 MG/ML 1 ML VIAL IVP STA (19:33)
[2020-07-05 20:19] LABS: Basophils # (A) 0.1 k/uL (0-0.2); Basophils % (A) 0 %; Eosinophils # (A) 0.1 k/uL (0-0.7); Eosinophils % (A) 1 %; HGB 13.7 gm/dL (11.4-16.0); Lymphocytes # (A) 0.8 k/uL (1.0-4.8); Lymphocytes % (A) 5 %; MCH 29.1 pg (25.0-35.0); MCHC 31.9 g/dL (31.0-37.0); MCV 91.1 fL (80.0-100.0); Mean Platelet Volume 7.5; Monocytes # (A) 0.5 k/uL (0-1.0); Monocytes % (A) 3 %; Neutrophils # (A) 15.7 k/uL (1.3-7.7); Neutrophils % (A) 91 %; Platelet Count 284 k/uL (150-450); RBC 4.72 m/uL (3.80-5.40); RDW 14.4 % (11.5-15.5); WBC 17.3 k/uL (3.8-10.6)
[2020-07-05 20:29] LABS: Albumin 3.9 g/dL (3.5-5.0); Calcium 9.8 mg/dL (8.4-10.2); Potassium 4.9 mmol/L (3.5-5.1); Total Bilirubin 0.7 mg/dL (0.2-1.3); Total Protein 6.4 g/dL (6.3-8.2)
--- NOTE | 2020-07-05 20:40 | CT ---
EXAMINATION TYPE: CT brain wo con DATE OF EXAM: 07/05/2020 COMPARISON: Prior CT 05/07/2020 HISTORY: ams, confusion CT DLP: 1127.4 mGycm Automated exposure control for dose reduction was used. Helical imaging through the brain FINDINGS: There are cerebral vascular calcifications. Cortical atrophy, periventricular white matter low-attenu ation shows a similar appearance. Calvarium is intact, paranasal sinuses and mastoid air cells as vis ualized are normal. IMPRESSION: NO ACUTE ABNORMALITY. AGE-RELATED CHANGES OF ATROPHY AND PROBABLE CHRONIC SMALL VESSEL ISCHEMIA.
[2020-07-05 21:40] VITALS: RESP 16
[2020-07-05 21:50] LABS: Appearance,Urine Cloudy (Clear); Bilirubin,Urine Negative (Negative); Blood,Urine Negative (Negative); Color,Urine Yellow; Glucose,Urine (UA) Trace (Negative); Hyaline Casts,Urine 5 /lpf (0-2); Ketones,Urine Trace (Negative); Leukocyte Esterase,Urine Large (Negative); Mucus,Urine Rare /hpf; Nitrite,Urine Negative (Negative); Protein,Urine Trace (Negative); RBC,Urine 1 /hpf (0-5); Specific Gravity,Urine 1.028 (1.001-1.035); Squamous Epithelial Cell,Urine 1 /hpf (0-4); Urobilinogen,Urine <2.0 mg/dL (<2.0); WBC,Urine 42 /hpf (0-5)
--- NOTE | 2020-07-05 22:09 | XR ---
EXAMINATION TYPE: XR chest 2V DATE OF EXAM: 07/05/2020 COMPARISON: Prior chest x-ray 05/07/2020 HISTORY: Leukocytosis TECHNIQUE: Frontal and lateral views of the chest are obtained. FINDINGS: There is no focal air space opacity, pleural effusion, or pneumothorax seen. The cardiac silhouette size is within normal limits. The osseous structures are intact. IMPRESSION: No acute cardiopulmonary process.
[2020-07-05] MEDS ORDERED: cefTRIAXone IN SWFI 1,000 MG/10 ML SYRINGE IVP STA (22:39)
[2020-07-05] MEDS ORDERED: CEPHALEXIN 500MG STARTER PACK 4 CAP BTL PO STA (23:00)
--- NOTE | 2020-07-05 23:02 | ED ---
General Adult HPI - General Chief complaint: Headache Stated complaint: Headache Time Seen by Provider: 07/05/20 19:09 Source: patient, family, RN notes reviewed, old records reviewed Mode of arrival: wheelchair Limitations: no limitations - History of Present Illness Initial comments: 74-year-old female patient to ED for evaluation. Patient reports that she woke up with a migraine headache today. She reports it feels identical to her mi graine headaches in the past. Reports it is behind her right eye. She's had some nausea and vomiting. That she has been having some mild sciatica-like back pain for the last 6 weeks that is being managed by [facility] that is not the reason she is here today and she wishes to have her headache addressed. Systemic: Pt denies fatigue, fever/chills, rash. Pt denies weakness, night sweats, weight loss. Neuro: Pt denies visual disturbances, syncope or pre-syncope. HEENT: Pt denies ocular discharge or irritation, otalgia, rhinorrhea, pharyngitis or notable lymphadenopathy. Cardiopulmonary: Pt denies chest pain, SOB, heart palpitations, dyspnea on exertion. Abdominal/GI: Pt denies abdominal pain, n/v/d. : Pt denies dysuria, burning w/ urination, frequency/urgency. Denies new onset urinary or bowel incontinence. MSK: Pt denies myalgia, loss of strength or function in extremities. Neuro: Pt denies new onset weakness, paresthesias. - Related Data Home Medications Medication Instructions Recorded Confirmed Citalopram Hydrobromide 20 mg PO DAILY 03/01/17 07/05/20 [Citalopram HBr] Levothyroxine Sodium [Synthroid] 100 mcg PO DAILY 03/01/17 07/05/20 Potassium Chloride [Klor-Con 10] 10 meq PO DAILY 03/01/17 07/05/20 glyBURIDE [Diabeta] 5 mg PO AC-BID 03/01/17 07/05/20 Aspirin [Adult Low Dose Aspirin EC] 81 mg PO DAILY 05/07/20 07/05/20 Exenatide Microspheres [Bydureon 2 mg SQ TH 05/07/20 07/05/20 Pen] Insulin Glargine,Hum.rec.anlog 55 unit SQ HS 05/07/20 07/05/20 [Lantus Solostar] Meloxicam [Mobic] 15 mg PO DAILY 05/07/20 07/05/20 Metoprolol Succinate [Toprol XL] 25 mg PO DAILY 05/07/20 07/05/20 Pyridostigmine [Mestinon] 60 mg PO BID 05/07/20 07/05/20 sitaGLIPtin PHOSPHATE [Januvia] 50 mg PO DAILY 05/07/20 07/05/20 Albuterol Inhaler [Ventolin Hfa 1 - 2 puff INHALATION RT-Q6H PRN 07/05/20 07/05/20 Inhaler] Baclofen 10 mg PO HS 07/05/20 07/05/20 HYDROcodone/APAP 5-325MG [[place] 1 tab PO BID 07/05/20 07/05/20 5-325] Rosuvastatin Calcium [Crestor] 40 mg PO HS 07/05/20 07/05/20 Solifenacin Succinate 10 mg PO DAILY 07/05/20 07/05/20 Previous Rx's Medication Instructions Recorded Cephalexin [Keflex] 500 mg PO Q6HR 10 Days #40 cap 07/05/20 Allergies Allergy/AdvReac Type Severity Reaction Status Date / Time metformin Allergy Diarrhea Verified 07/05/20 20:13 Review of Systems ROS Statement: Those systems with pertinent positive or pertinent negative responses have been documented in the HPI. ROS Other: All systems not noted in ROS Statement are negative. Past Medical History Past Medical History: COPD, Diabetes Mellitus, Eye Disorder, Hyperlipidemia, Hypertension, Osteoarthritis (OA) Additional Past Medical History / Comment(s): gets Cortisone injections in both knees. skin cancer removed from nose. Myasthenia Gravis History of Any Multi-Drug Resistant Organisms: None Reported Past Surgical History: Section, Heart Catheterization With Stent Past Anesthesia/Blood Transfusion Reactions: No Reported Reaction Date of Last Stent Placement:: 2004 Past Psychological History: No Psychological Hx Reported Smoking Status: Never smoker Past Alcohol Use History: Occasional Past Drug Use History: None Reported - Past Family History Mother Family Medical History: Cancer, Myocardial Infarction ([place]) Father Family Medical History: COPD, Rheumatoid Arthritis (RA) General Exam - General Exam Comments Initial Comments: Constitutional: NAD, AOX3, Pt has pleasant affect. HEENT: NC/AT, trachea midline, neck supple, no lymphadenopathy. Posterior pharynx non erythematous, without exudates. External ears appear normal, without discharge. Mucous membranes moist. Eyes PERRLA, EOM intact. There is no scleral icterus. No pallor noted. Cardiopulmonary: RRR, no murmurs, rubs or gallops, no JVD noted. Lungs CTAB in anterior and posterior lock. No peripheral edema. Abdominal exam: Abdomen soft and non-distended. Abdomen non-tender to palpation in all 4 quadrants. Bowel sounds active in LLQ. No hepatosplenomegaly. No ecchymosis Neuro: CN II-XII intact. No nuchal rigidity. No raccon eyes, no wiggins sign, no hemotympanum. No cervical spinal tenderness. No temporal tenderness. NIH 0. MSK: No posterior calf tenderness bilaterally, homans sign negative bilaterally. Posterior tibialis and radial pulse +2 bilaterally. Sensation intact in upper and lower extremities. Full active ROM in upper and lower extremities, 5/5 stregnth. Limitations: no limitations Course Vital Signs 07/05/20 07/05/20 07/05/20 18:46 21:40 22:55 Temperature 99.8 F H Pulse Rate 103 H 89 94 Respiratory 18 16 16 Rate Blood Pressure 124/69 147/64 120/64 O2 Sat by Pulse 95 94 L 95 Oximetry Medical Decision Making - Medical Decision Making 74-year-old female patient to ED for migraine headache. Patient vital signs are stable, afebrile. Physical exam is negative for acute pathology. Patient headache resolved with analgesia. Investigations reveal leukocytosis of 13.3. Further workup was obtained. Chest x-ray negative for acute pathology. UA displayed urinary tract infection. Patient being creatinine is slightly increased patient administered administered a fluid bolus. A brain C-spine negative for acute pathology. Chest: Negative for acute pathology. Case discussed with Dr. Arias. - Lab Data Result diagrams: 07/05/20 19:54 07/05/20 19:54 Lab Results 07/05/20 07/05/20 07/05/20 Range/Units 19:54 19:54 21:40 WBC 17.3 H (3.8-10.6) k/uL RBC 4.72 (3.80-5.40) m/uL Hgb 13.7 (11.4-16.0) gm/dL Hct 43.0 (34.0-46.0) % MCV 91.1 (80.0-100.0) fL MCH 29.1 (25.0-35.0) pg MCHC 31.9 (31.0-37.0) g/dL RDW 14.4 (11.5-15.5) % Plt Count 284 (150-450) k/uL MPV 7.5 Neutrophils % 91 % Lymphocytes % 5 % Monocytes % 3 % Eosinophils % 1 % Basophils % 0 % Neutrophils # 15.7 H (1.3-7.7) k/uL Lymphocytes # 0.8 L (1.0-4.8) k/uL Monocytes # 0.5 (0-1.0) k/uL Eosinophils # 0.1 (0-0.7) k/uL Basophils # 0.1 (0-0.2) k/uL Sodium 132 L (137-145) mmol/L Potassium 4.9 (3.5-5.1) mmol/L Chloride 101 (98-107) mmol/L Carbon Dioxide 24 (22-30) mmol/L Anion Gap 7 mmol/L BUN 29 H (7-17) mg/dL Creatinine 1.13 H (0.52-1.04) mg/dL Est GFR (CKD-EPI)AfAm 55 (>60 ml/min/1.73 sqM) Est GFR (CKD-EPI)NonAf 48 (>60 ml/min/1.73 sqM) Glucose 265 H (74-99) mg/dL Calcium 9.8 (8.4-10.2) mg/dL Total Bilirubin 0.7 (0.2-1.3) mg/dL AST 24 (14-36) U/L ALT 26 (4-34) U/L Alkaline Phosphatase 92 (38-126) U/L Total Protein 6.4 (6.3-8.2) g/dL Albumin 3.9 (3.5-5.0) g/dL Urine Color Yellow Urine Appearance Cloudy H (Clear) Urine pH 5.0 (5.0-8.0) Ur Specific [place] 1.028 (1.001-1.035) Urine Protein Trace H (Negative) Urine Glucose (UA) Trace H (Negative) Urine Ketones Trace H (Negative) Urine Blood Negative (Negative) Urine Nitrite Negative (Negative) Urine Bilirubin Negative (Negative) Urine Urobilinogen <2.0 (<2.0) mg/dL Ur Leukocyte Esterase Large H (Negative) Urine RBC 1 (0-5) /hpf Urine WBC 42 H (0-5) /hpf Ur Squamous Epith Cells 1 (0-4) /hpf Hyaline Casts 5 H (0-2) /lpf Urine Mucus Rare H (None) /hpf Coronavirus (PCR) (Not Detectd) 07/05/20 Range/Units 21:40 WBC (3.8-10.6) k/uL RBC (3.80-5.40) m/uL Hgb (11.4-16.0) gm/dL Hct (34.0-46.0) % MCV (80.0-100.0) fL MCH (25.0-35.0) pg MCHC (31.0-37.0) g/dL RDW (11.5-15.5) % Plt Count (150-450) k/uL MPV Neutrophils % % Lymphocytes % % Monocytes % % Eosinophils % % Basophils % % Neutrophils # (1.3-7.7) k/uL Lymphocytes # (1.0-4.8) k/uL Monocytes # (0-1.0) k/uL Eosinophils # (0-0.7) k/uL Basophils # (0-0.2) k/uL Sodium (137-145) mmol/L Potassium (3.5-5.1) mmol/L Chloride (98-107) mmol/L Carbon Dioxide (22-30) mmol/L Anion Gap mmol/L BUN (7-17) mg/dL Creatinine (0.52-1.04) mg/dL Est GFR (CKD-EPI)AfAm (>60 ml/min/1.73 sqM) Est GFR (CKD-EPI)NonAf (>60 ml/min/1.73 sqM) Glucose (74-99) mg/dL Calcium (8.4-10.2) mg/dL Total Bilirubin (0.2-1.3) mg/dL AST (14-36) U/L ALT (4-34) U/L Alkaline Phosphatase (38-126) U/L Total Protein (6.3-8.2) g/dL Albumin (3.5-5.0) g/dL Urine Color Urine Appearance (Clear) Urine pH (5.0-8.0) Ur Specific [place] (1.001-1.035) Urine Protein (Negative) Urine Glucose (UA) (Negative) Urine Ketones (Negative) Urine Blood (Negative) Urine Nitrite (Negative) Urine Bilirubin (Negative) Urine Urobilinogen (<2.0) mg/dL Ur Leukocyte Esterase (Negative) Urine RBC (0-5) /hpf Urine WBC (0-5) /hpf Ur Squamous Epith Cells (0-4) /hpf Hyaline Casts (0-2) /lpf Urine Mucus (None) /hpf Coronavirus (PCR) Not Detected (Not Detectd) - EKG Data -: EKG Interpreted by Me (and Dr. Arias ) EKG Comments: ventricular rate 91, CA interval 170, QRS 82, QT/QTc is 68/452. Normal sensory, normal EKG, no concern for acute ischemia. Disposition Clinical Impression: Migraine headache, UTI (urinary tract infection) Disposition: HOME SELF-CARE Condition: Stable Instructions (If sedation given, give patient instructions): Urinary Tract Infection in Women (ED), Acute Headache (ED) Additional Instructions: Follow up with PCP tomorrow. Take antibiotics as directed. Return to ED with any worsening symptoms. Prescriptions: Cephalexin [Keflex] 500 mg PO Q6HR 10 Days #40 cap Is patient prescribed a controlled substance at d/c from ED?: No Referrals: Dora Alexander MD [Primary Care Provider] - 1-2 days
[2020-07-05 23:40] VITALS: BP 129/68; PULSE 85; TEMP 98.1
== END 2020-07-05 23:48 | disposition home or self-care (01) ==
LOC: EC 18:39
DX: G43.909 Migraine, unspecified, not intractable, without status migrainosus (principal); N39.0 Urinary tract infection, site not specified; J44.9 Chronic obstructive pulmonary disease, unspecified; E11.9 Type 2 diabetes mellitus without complications; E78.5 Hyperlipidemia, unspecified; I10 Essential (primary) hypertension; M19.90 Unspecified osteoarthritis, unspecified site; Z95.5 Presence of coronary angioplasty implant and graft; Z79.4 Long term (current) use of insulin; Z79.899 Other long term (current) drug therapy; Z79.82 Long term (current) use of aspirin; Z88.8 Allergy status to other drugs, medicaments and biological substances; Z85.828 Personal history of other malignant neoplasm of skin; Z20.828 Contact with and (suspected) exposure to other viral communicable diseases
CPT/HCPCS: 99285; 96374; 96375 ×3; 96361; 36415; 93005; 80053; 85025; 81001; 87086; 87635; 71046; 70450; J2270; J1200; J2765; J0696

== ENCOUNTER 2024-03-06 19:11 | Inpatient (IN) | payer MEDICARE ==
--- NOTE | 2024-03-06 19:30 | ED ---
SOB HPI - General Source: patient, family, RN notes reviewed Mode of arrival: wheelchair Limitations: no limitations <Paula Royal - Last Filed: 03/06/24 19:29> <Marisa Rob - Last Filed: 03/07/24 05:11> - General Stated Complaint: SOB Time Seen by Provider: 03/06/24 19:29 - History of Present Illness Initial Comments: Quick note: 78-year-old female presented to ER with a chief complaint shortness of breath. Patient states he has a past medical history significant of myasthenia gravis. She states for the past couple days she has been having an increase in weakness and shortness of breath. She does state a recent travel in an airplane from [place]. She does states she has been having a cough as a nearby passenger was also coughing during her flight. Denies any history of blood clots. Is not currently on any blood thinners. No peripheral edema. No home oxygen use and she is reporting a pressure sensation in her chest. (Paula Ryoal) 78-year-old female with history of COPD, myasthenia gravis, diabetes, hypertension, hyperlipidemia presenting with chief complaint of difficulty breathing. Patient was recently traveling by plane and states that she was exposed to someone is coughing during the flight. Shortly after she began to develop a cough. Since then she has had worsening chest congestion and shortness of breath. With this she feels that her myasthenia gravis is flaring. She notices weakness in her facial muscles as well as her extremities. She states that she notices she is using increased effort when trying to catch her breath. No chest pain. Mild lower extremity swelling. No fever. (Marisa Rob) - Related Data Home Medications Medication Instructions Recorded Confirmed Citalopram Hydrobromide 20 mg PO DAILY 03/01/17 07/05/20 [Citalopram HBr] Levothyroxine Sodium [Synthroid] 100 mcg PO DAILY 03/01/17 07/05/20 Potassium Chloride [Klor-Con 10 ER] 10 meq PO DAILY 03/01/17 07/05/20 glyBURIDE [Diabeta] 5 mg PO AC-BID 03/01/17 07/05/20 Aspirin [Adult Low Dose Aspirin EC] 81 mg PO DAILY 05/07/20 07/05/20 Exenatide Microspheres [Bydureon 2 mg SQ TH 05/07/20 07/05/20 Pen] Insulin Glargine,Hum.rec.anlog 55 unit SQ HS 05/07/20 07/05/20 [Lantus Solostar Pen] Meloxicam [Mobic] 15 mg PO DAILY 05/07/20 07/05/20 Metoprolol Succinate [Toprol XL] 25 mg PO DAILY 05/07/20 07/05/20 Pyridostigmine [Mestinon] 60 mg PO BID 05/07/20 07/05/20 sitaGLIPtin PHOSPHATE [Januvia] 50 mg PO DAILY 05/07/20 07/05/20 Albuterol Inhaler [Ventolin Hfa 1 - 2 puff INHALATION RT-Q6H PRN 07/05/20 07/05/20 Inhaler] Baclofen 10 mg PO HS 07/05/20 07/05/20 HYDROcodone/APAP 5-325MG [[place] 1 tab PO BID 07/05/20 07/05/20 5-325] Rosuvastatin Calcium [Crestor] 40 mg PO HS 07/05/20 07/05/20 Solifenacin Succinate 10 mg PO DAILY 07/05/20 07/05/20 Previous Rx's Medication Instructions Recorded Cephalexin [Keflex] 500 mg PO Q6HR 10 Days #40 cap 07/05/20 Allergies Allergy/AdvReac Type Severity Reaction Status Date / Time metformin Allergy Diarrhea Verified 03/06/24 19:58 Review of Systems ROS Other: All systems not noted in ROS Statement are negative. <Paula Royal - Last Filed: 03/06/24 19:29> ROS Other: All systems not noted in ROS Statement are negative. <Marisa Rob - Last Filed: 03/07/24 05:11> ROS Statement: Those systems with pertinent positive or pertinent negative responses have been documented in the HPI. Past Medical History Past Medical History: COPD, Diabetes Mellitus, Eye Disorder, Hyperlipidemia, Hypertension, Osteoarthritis (OA) Additional Past Medical History / Comment(s): gets Cortisone injections in both knees. skin cancer removed from nose. Myasthenia Gravis History of Any Multi-Drug Resistant Organisms: None Reported Past Surgical History: Section, Heart Catheterization With Stent Past Anesthesia/Blood Transfusion Reactions: No Reported Reaction Date of Last Stent Placement:: 2004 Past Psychological History: No Psychological Hx Reported Smoking Status: Never smoker Past Alcohol Use History: Occasional Past Drug Use History: None Reported - Past Family History Mother Family Medical History: Cancer, Myocardial Infarction (MD) Father Family Medical History: COPD, Rheumatoid Arthritis (RA) <Paula Royal - Last Filed: 03/06/24 19:29> General Exam <Paula Royal - Last Filed: 03/06/24 19:29> General appearance: alert, in no apparent distress Head exam: Present: atraumatic, normocephalic Eye exam: Present: normal appearance, EOMI Neck exam: Present: normal inspection. Absent: meningismus Respiratory exam: Present: wheezes. Absent: respiratory distress, rhonchi, stridor Cardiovascular Exam: Present: regular rate, normal rhythm, normal heart sounds. Absent: systolic murmur, diastolic murmur, rubs, gallop, clicks Neurological exam: Present: alert, oriented X3 Psychiatric exam: Present: normal affect, normal mood Skin exam: Present: warm, dry <Marisa Rob - Last Filed: 03/07/24 05:11> - General Exam Comments Initial Comments: Visual Physical Exam Vital signs reviewed General: Well-appearing, nontoxic, no acute distress. Head: Normocephalic, atraumatic Eyes: PERRLA, EOMI ENT: Airway patent Chest: Nonlabored breathing Skin: No visual rash, normal skin tone Neuro: Alert and oriented 3 Musculoskeletal: No gross abnormalities (Paula Royal) Course Vital Signs 03/06/24 03/07/24 03/07/24 19:59 00:03 00:33 Temperature 98.5 F Pulse Rate 97 95 Respiratory 20 20 Rate Blood Pressure 110/55 O2 Sat by Pulse 92 L 87 L Oximetry 03/07/24 03/07/24 00:39 02:00 Temperature 98.7 F Pulse Rate 97 86 Respiratory 18 21 Rate Blood Pressure 131/59 O2 Sat by Pulse 98 Oximetry Medical Decision Making <Paula Royal - Last Filed: 03/06/24 19:29> - Lab Data Result diagrams: 03/06/24 20:04 03/06/24 20:04 <Marisa Rob - Last Filed: 03/07/24 05:11> - Medical Decision Making I performed the quick note portion of this chart. Electronically signed by Paula Royal PA-C (Paula Royal) Was pt. sent in by a medical professional or institution ([facility], [employer], urgent care, hospital, or jail...) When possible be specific @ -No Did you speak to anyone other than the patient for history (EMS, parent, family, police, friend...)? What history was obtained from this source @ -No Did you review nursing and triage notes (agree or disagree)? Why? @ -I reviewed and agree with nursing and triage notes Were old charts reviewed (outside hosp., previous admission, EMS record, old EKG, old radiological studies, urgent care reports/EKG's, jail records)? Report findings @ -No old charts were reviewed Differential Diagnosis (chest pain, altered mental status, abdominal pain women, abdominal pain men, vaginal bleeding, weakness, fever, dyspnea, syncope, headache, dizziness, GI bleed, back pain, seizure, CVA, palpatations, mental health, musculoskeletal)? @ -MDM Differential Dyspnea: Coronary syndrome, arrhythmia, tamponade, asthma, COPD, pulmonary embolism, pneumonia, pneumothorax, pulmonary effusion, anaphylaxis, diabetic ketoacidosis, flailed chest, pulmonary contusion, diaphragmatic rupture, anemia, neuromuscul ar this is not meant to be an all-inclusive list. EKG interpreted by me (3pts min.). @ -EKG shows sinus rhythm ventricular rate 91. UT interval 165. QRS 85. QT 367. QTc 416. X-rays interpreted by me (1pt min.). @ -Chest x-ray shows no acute cardiopulmonary process CT interpreted by me (1pt min.). @ -None done U/S interpreted by me (1pt. min.). @ -None done What testing was considered but not performed or refused? (CT, X-rays, U/S, labs)? Why? @ -None What meds were considered but not given or refused? Why? @ -None Did you discuss the management of the patient with other professionals (professionals i.e. [facility], [employer], lab, RT, psych nurse, social sciences chair, probate lawyer, teacher, environmental health officer, immigration case worker)? Give summary @ -My attending spoke with Dr. Mckeon accepted admission Was smoking cessation discussed for >3mins.? @ -No Was critical care preformed (if so, how long)? @ -No Were there social determinants of health that impacted care today? How? (Homelessness, low income, unemployed, alcoholism, drug addiction, transportation, low edu. Level, literacy, decrease access to med. care, senior living, rehab)? @ -No Was there de-escalation of care discussed even if they declined (Discuss DNR or withdrawal of care, Hospice)? DNR status @ -No What co-morbidities impacted this encounter? (DM, HTN, Smoking, COPD, CAD, Cancer, CVA, ARF, Chemo, Hep., AIDS, mental health diagnosis, sleep apnea, morbid obesity)? @ -COPD, myasthenia gravis Was patient admitted / discharged? Hospital course, mention meds given and route, prescriptions, significant lab abnormalities, going to OR and other pertinent info. @ -78-year-old female presenting with chief complaint of shortness of breath. Also having increased muscle weakness. She attributes this to her COPD and myasthenia gravis. WBC 15.6. Negative troponin. Negative for influenza, RSV, COVID. Chest x-ray shows no acute process. EKG shows no ST deviation. Patient is hypoxic on room air started on 3 L via nasal cannula. Treated with DuoNeb and Solu-Medrol. Pyridostigmine 60 mg 5 XD ordered. Patient is not showing signs of respiratory failure. She feels better after oxygen was applied. She will be admitted for COPD exacerbation complicated by her myasthenia gravis. She is agreeable with this plan. I discussed this case with my attending Dr. Fish Undiagnosed new problem with uncertain prognosis? @ -No Drug Therapy requiring intensive monitoring for toxicity (Heparin, Nitro, Insulin, Cardizem)? @ -No Were any procedures done? @ -No Diagnosis/symptom? @ -COPD exacerbation Acute, or Chronic, or Acute on Chronic? @ -Acute Uncomplicated (without systemic symptoms) or Complicated (systemic symptoms)? @ -Complicated Side effects of treatment? @ -No Exacerbation, Progression, or Severe Exacerbation? @ -Exacerbation Poses a threat to life or bodily function? How? (Chest pain, [place], MD, pneumonia, PE, COPD, DKA, ARF, appy, cholecystitis, CVA, Diverticulitis, Homicidal, Suicidal, threat to staff... and all critical care pts) @ -Yes Diagnosis/symptom? @Myasthenia gravis Acute, or Chronic, or Acute on Chronic? @Acute on chronic Uncomplicated (without systemic symptoms) or Complicated (systemic symptoms)? @Complicated Side effects of treatment? @None Exacerbation, Progression, or Severe Exacerbation] @No Poses a threat to life or bodily function? @Yes (Marisa Rob) - Lab Data Lab Results 03/06/24 03/06/24 03/06/24 Range/Units 20:04 20:04 20:04 WBC 15.6 H (3.8-10.6) k/uL RBC 5.22 (3.80-5.40) m/uL Hgb 14.9 (11.4-16.0) gm/dL Hct 45.9 (34.0-46.0) % MCV 87.9 (80.0-100.0) fL MCH 28.5 (25.0-35.0) pg MCHC 32.4 (31.0-37.0) g/dL RDW 13.9 (11.5-15.5) % Plt Count 234 (150-450) k/uL MPV 7.2 Neutrophils % 82 % Lymphocytes % 7 % Monocytes % 5 % Eosinophils % 5 % Basophils % 0 % Neutrophils # 12.8 H (1.3-7.7) k/uL Lymphocytes # 1.0 (1.0-4.8) k/uL Monocytes # 0.8 (0-1.0) k/uL Eosinophils # 0.8 H (0-0.7) k/uL Basophils # 0.1 (0-0.2) k/uL PT 10.3 (10.0-12.5) sec INR 0.9 (<1.2) APTT 24.4 (22.0-30.0) sec Sodium 134 L (137-145) mmol/L Potassium 4.7 (3.5-5.1) mmol/L Chloride 108 H (98-107) mmol/L Carbon Dioxide 24 (22-30) mmol/L Anion Gap 2 mmol/L BUN 18 H (7-17) mg/dL Creatinine 1.00 (0.52-1.04) mg/dL Est GFR (CKD-EPI)AfAm 62 (>60 ml/min/1.73 sqM) Est GFR (CKD-EPI)NonAf 54 (>60 ml/min/1.73 sqM) Glucose 234 H (74-99) mg/dL Plasma Lactic Acid [place] (0.7-2.0) mmol/L Calcium 10.1 (8.4-10.2) mg/dL Magnesium 1.9 (1.6-2.3) mg/dL Total Bilirubin 1.0 (0.2-1.3) mg/dL AST 22 (14-36) U/L ALT 17 (4-34) U/L Alkaline Phosphatase 104 (38-126) U/L Troponin I (0.000-0.034) ng/mL Total Protein 6.5 (6.3-8.2) g/dL Albumin 4.2 (3.5-5.0) g/dL Influenza Type A (PCR) (Not Detectd) Influenza Type B (PCR) (Not Detectd) RSV (PCR) (Not Detectd) SARS-CoV-2 (PCR) (Not Detectd) 03/06/24 03/06/24 03/06/24 Range/Units 20:04 20:04 20:04 WBC (3.8-10.6) k/uL RBC (3.80-5.40) m/uL Hgb (11.4-16.0) gm/dL Hct (34.0-46.0) % MCV (80.0-100.0) fL MCH (25.0-35.0) pg MCHC (31.0-37.0) g/dL RDW (11.5-15.5) % Plt Count (150-450) k/uL MPV Neutrophils % % Lymphocytes % % Monocytes % % Eosinophils % % Basophils % % Neutrophils # (1.3-7.7) k/uL Lymphocytes # (1.0-4.8) k/uL Monocytes # (0-1.0) k/uL Eosinophils # (0-0.7) k/uL Basophils # (0-0.2) k/uL PT (10.0-12.5) sec INR (<1.2) APTT (22.0-30.0) sec Sodium (137-145) mmol/L Potassium (3.5-5.1) mmol/L Chloride (98-107) mmol/L Carbon Dioxide (22-30) mmol/L Anion Gap mmol/L BUN (7-17) mg/dL Creatinine (0.52-1.04) mg/dL Est GFR (CKD-EPI)AfAm (>60 ml/min/1.73 sqM) Est GFR (CKD-EPI)NonAf (>60 ml/min/1.73 sqM) Glucose (74-99) mg/dL Plasma Lactic Acid [place] 1.0 (0.7-2.0) mmol/L Calcium (8.4-10.2) mg/dL Magnesium (1.6-2.3) mg/dL Total Bilirubin (0.2-1.3) mg/dL AST (14-36) U/L ALT (4-34) U/L Alkaline Phosphatase (38-126) U/L Troponin I <0.012 (0.000-0.034) ng/mL Total Protein (6.3-8.2) g/dL Albumin (3.5-5.0) g/dL Influenza Type A (PCR) Not Detected (Not Detectd) Influenza Type B (PCR) Not Detected (Not Detectd) RSV (PCR) Not Detected (Not Detectd) SARS-CoV-2 (PCR) Not Detected (Not Detectd) Disposition <Paula Royal - Last Filed: 03/06/24 19:29> Time of Disposition: 00:34 <Marisa Rob - Last Filed: 03/07/24 05:11> Clinical Impression: COPD exacerbation, Myasthenia gravis Disposition: ADMITTED IP TO THIS HOSP Condition: Serious
[2024-03-06 20:23] LABS: Basophils # (A) 0.1 k/uL (0-0.2); Basophils % (A) 0 %; Eosinophils # (A) 0.8 k/uL (0-0.7); Eosinophils % (A) 5 %; HCT 45.9 % (34.0-46.0); HGB 14.9 gm/dL (11.4-16.0); Lymphocytes % (A) 7 %; MCH 28.5 pg (25.0-35.0); MCHC 32.4 g/dL (31.0-37.0); MCV 87.9 fL (80.0-100.0); Mean Platelet Volume 7.2; Monocytes # (A) 0.8 k/uL (0-1.0); Monocytes % (A) 5 %; Neutrophils # (A) 12.8 k/uL (1.3-7.7); Neutrophils % (A) 82 %; Platelet Count 234 k/uL (150-450); RBC 5.22 m/uL (3.80-5.40); RDW 13.9 % (11.5-15.5); WBC 15.6 k/uL (3.8-10.6)
[2024-03-06 20:38] LABS: ALT 17 U/L (4-34); AST 22 U/L (14-36); African American GFR (CKD) 62 (>60 ml/min/1.73 sqM); Albumin 4.2 g/dL (3.5-5.0); Alkaline Phosphatase 104 U/L (38-126); Anion Gap 2 mmol/L; Blood Urea Nitrogen 18 mg/dL (7-17); Calcium 10.1 mg/dL (8.4-10.2); Carbon Dioxide 24 mmol/L (22-30); Chloride 108 mmol/L (98-107); Glucose 234 mg/dL (74-99); Magnesium 1.9 mg/dL (1.6-2.3); Non-African American GFR(CKD) 54 (>60 ml/min/1.73 sqM); Potassium 4.7 mmol/L (3.5-5.1); Sodium 134 mmol/L (137-145); Total Protein 6.5 g/dL (6.3-8.2)
[2024-03-06 20:49] LABS: INR 0.9 (<1.2); Partial Thromboplastin Time 24.4 sec (22.0-30.0); Prothrombin Time 10.3 sec (10.0-12.5)
--- NOTE | 2024-03-06 21:23 | XR ---
EXAMINATION TYPE: XR chest 2V DATE OF EXAM: 03/06/2024 9:02 PM CLINICAL INDICATION:Female, 78 years old with history of difficulty breathing COMPARISON: Lumbar spine CT 06/03/2020 TECHNIQUE: XR chest 2V Frontal view of the chest. FINDINGS: Lungs/Pleura: There is no evidence of pleural effusion, focal consolidation, or pneumothorax. Inters titial prominence likely chronic in nature. Pulmonary vascularity: Unremarkable. Heart/mediastinum: Cardiomediastinal silhouette is unremarkable. Musculoskeletal: No acute osseous pathology. Partially visualized compression deformity of the lower thoracic spine appears to correspond to the known compression deformity involving T12 vertebral body as appreciated on CT in reference. Other findings: None IMPRESSION: No acute cardiopulmonary disease/process.
[2024-03-07] MEDS: methylPREDNISolone SOD SUCCI 125 MG/2 ML VIAL IV ONE (00:21)
[2024-03-07] MEDS ORDERED: ACETAMINOPHEN TAB 325 MG TAB PO PRN (00:31)
[2024-03-07] MEDS ORDERED: NALOXONE 0.4 MG/ML 1 ML VIAL IV PRN (00:31)
[2024-03-07] MEDS: IPRATROPIUM-ALBUTEROL 3 ML NEB INHALATION STA (00:33)
[2024-03-07] MEDS: SODIUM CHLORIDE 0.9% 1,000 ML IV SCH ×2 (01:29→13:11)
[2024-03-07] MEDS: PYRIDOSTIGMINE 60 MG TAB PO SCH ×3 (01:29→14:48)
[2024-03-07 06:42] LABS: Glucose,Whole Blood 279 mg/dL (70-110)
[2024-03-07] MEDS: IPRATROPIUM-ALBUTEROL 3 ML NEB INHALATION SCH (08:00)
[2024-03-07] MEDS: AMOXIC-POT CLAV 875-125MG 1 EACH TAB PO SCH (09:55)
--- NOTE | 2024-03-07 10:53 | P.HPIM ---
History of Present Illness 78-year-old pleasant female came with complaints of fever shortness of breath but does have history of myasthenia gravis patient smoked as a kid but does have history of COPD patient has been coughing bringing up some phlegm. Patient is also hyponatremic with a serum sodium of 134. Patient chest x-ray did not show pneumonia patient may have severe bronchitis. Patient does have history of myasthenia gravis for which patient is on physostigmine. Patient is also diabetic with requiring high dose of insulin at home. Shortness of breath significantly improved since yesterday patient is saturating 97% on 2 L patient was requiring 3 L and was desaturating last night. REVIEW OF SYSTEMS: All other systems are negative except those mentioned in the HPI PHYSICAL EXAMINATION: GENERAL: The patient is alert and oriented x3, not in any acute distress. Well developed, well nourished. HEENT: Pupils are round and equally reacting to light. EOMI. No scleral icterus. No conjunctival pallor. Normocephalic, atraumatic. No pharyngeal erythema. No thyromegaly. CARDIOVASCULAR: S1 and S2 present. No murmurs, rubs, or gallops. PULMONARY: Expiratory wheezing on exam ABDOMEN: Soft, nontender, nondistended, normoactive bowel sounds. No palpable organomegaly. MUSCULOSKELETAL: No joint swelling or deformity. EXTREMITIES: No cyanosis, clubbing, or pedal edema. NEUROLOGICAL: Gross neurological examination did not reveal any focal deficits. SKIN: No rashes. Assessment and plan COPD with acute exacerbation and possible bacterial bronchitis we will cut down the steroid doses from 60 every 6 to 40 twice daily as patient is an elderly and is also on high-dose of insulin at home. Patient significantly improved. -Type 2 diabetes mellitus blood sugars are expected to go up patient was resumed on home regimen except for metformin along with high-dose sliding scale -Hyperlipidemia-hypovolemic hyponatremia continue with IV fluids and later today and will discontinue after that -Hypertension for above-mentioned chronic medical problems patient will be resumed on appropriate home medications DVT prophylaxis: Lovenox Past Medical History Past Medical History: COPD, Diabetes Mellitus, Eye Disorder, Hyperlipidemia, Hypertension, Osteoarthritis (OA) Additional Past Medical History / Comment(s): gets Cortisone injections in both knees. skin cancer removed from nose. Myasthenia Gravis History of Any Multi-Drug Resistant Organisms: None Reported Past Surgical History: Section, Heart Catheterization With Stent Past Anesthesia/Blood Transfusion Reactions: No Reported Reaction Date of Last Stent Placement:: 2004 Past Psychological History: No Psychological Hx Reported Smoking Status: Former smoker Past Alcohol Use History: Occasional Past Drug Use History: None Reported - Past Family History Mother Family Medical History: Cancer, Myocardial Infarction ([place]) Father Family Medical History: COPD, Rheumatoid Arthritis (RA) Medications and Allergies Home Medications Medication Instructions Recorded Confirmed Type Citalopram Hydrobromide 20 mg PO DAILY 03/01/17 03/07/24 History [Citalopram HBr] Potassium Chloride [Klor-Con 10 ER] 10 meq PO HS 03/01/17 03/07/24 History glyBURIDE [Diabeta] 5 mg PO BID 03/01/17 03/07/24 History Aspirin [Adult Low Dose Aspirin EC] 81 mg PO DAILY 05/07/20 03/07/24 History Metoprolol Succinate [Toprol XL] 25 mg PO DAILY 05/07/20 03/07/24 History Pyridostigmine [Mestinon] 180 mg PO BID 05/07/20 03/07/24 History Rosuvastatin Calcium [Crestor] 40 mg PO HS 07/05/20 03/07/24 History Ergocalciferol (Vitamin D2) 1,250 mcg PO HO 03/07/24 03/07/24 History [Drisdol (50,000 Iu)] Insulin Glargine,Hum.rec.anlog 62 unit SQ DAILY 03/07/24 03/07/24 History [Basaglar Kwikpen U-100] Levothyroxine Sodium [Synthroid] 125 mcg PO DAILY 03/07/24 03/07/24 History Mirabegron [Myrbetriq] 25 mg PO DAILY 03/07/24 03/07/24 History Pyridostigmine [place] [Mestinon] 120 mg PO DAILY@1500 03/07/24 03/07/24 History Semaglutide [Ozempic] 2 mg SQ HO 03/07/24 03/07/24 History Allergies Allergy/AdvReac Type Severity Reaction Status Date / Time metformin Allergy Diarrhea Verified 03/07/24 07:23 Physical Exam Vitals: Vital Signs Temp Pulse Resp BP Pulse Ox 03/07/24 10:00 85 17 136/58 97 03/07/24 08:13 90 03/07/24 08:01 88 03/07/24 06:37 84 19 121/46 63 L 03/07/24 06:07 98.7 F 84 17 96 03/07/24 02:00 98.7 F 86 21 131/59 98 03/07/24 00:39 97 18 03/07/24 00:33 95 20 03/07/24 00:03 87 L 03/06/24 19:59 98.5 F 97 20 110/55 92 L Intake and Output 03/06/24 03/07/24 03/07/24 22:59 06:59 14:59 Other: Weight 85.275 kg Results CBC & Chem 7: 03/06/24 20:04 03/06/24 20:04 Labs: Abnormal Lab Results - Last 24 Hours (Table) 03/06/24 03/06/24 03/07/24 Range/Units 20:04 20:04 06:41 WBC 15.6 H (3.8-10.6) k/uL Neutrophils # 12.8 H (1.3-7.7) k/uL Eosinophils # 0.8 H (0-0.7) k/uL Sodium 134 L (137-145) mmol/L Chloride 108 H (98-107) mmol/L BUN 18 H (7-17) mg/dL Glucose 234 H (74-99) mg/dL POC Glucose (mg/dL) 279 H (70-110) mg/dL
[2024-03-07] MEDS ORDERED: methylPREDNISolone SOD SUCCI 125 MG/2 ML VIAL IV SCH (12:00)
[2024-03-07 12:17] LABS: Glucose,Whole Blood 368 mg/dL (70-110)
[2024-03-07] MEDS: LEVOTHYROXINE 125 MCG TAB PO SCH (12:34)
[2024-03-07] MEDS: glipiZIDE 10 MG TAB PO SCH (12:34)
[2024-03-07] MEDS: METOPROLOL SUCCINATE (ER) 25 MG TAB.ER.24H PO SCH (12:34)
[2024-03-07] MEDS: INSULIN ASPART (NovoLOG) 100 UNIT/ML VIAL SQ SCH (12:35)
[2024-03-07] MEDS: ENOXAPARIN 40 MG/0.4 ML SYRINGE SQ SCH (12:37)
[2024-03-07] MEDS: NON FORMULARY DRUG (Mirabegron [Myrbetriq] 25 MG Tab.Er.24h) PO SCH (12:49)
--- NOTE | 2024-03-07 13:00 | P.CNPUL ---
History of Present Illness Consult date: 03/07/24 Requesting physician: Samantha Mckeon Reason for consult: dyspnea, cough Chief complaint: Shortness of breath, cough, congestion History of present illness: This is a very pleasant 78-year-old female patient with a known history of myasthenia gravis, diabetes mellitus, hypertension, hyperlipidemia. Last weekend she traveled to [place] and came back on Sunday, March 03, 2024. She states the lady was coughing on the airplane behind her and then she now has a very loose congested cough as of breath and presented here to the emergency room at evening for the same. Chest x-ray shows no acute cardiopulmonary process. White count 15.6. Hemoglobin 14.9. Platelets 234. Sodium 134. Potassium 4.7. Bicarb 24. BUN 18. Creatinine 1.00. Glucose 234. Troponin negative x 1. Viral screen negative. She is seen today in consultation in the emergency department. She is currently sitting up in a stretcher. Awake and alert in no acute distress. She continues with the congested cough. Shortness of breath with exertion. She is afebrile. She is maintaining good O2 saturations in the upper 90s on 3 L/min per nasal cannula. She is hemodynamically stable. Review of Systems REVIEW OF SYSTEMS: CONSTITUTIONAL: Denies any recent significant weight loss or weight gain. EYES: Denies change in vision. EARS, NOSE, MOUTH, THROAT: Denies headaches, denies sore throat. CARDIOVASCULAR: Denies chest pain, palpitations or syncopal episodes. RESPIRATORY: Positive for shortness of breath, cough, congestion no hemoptysis. GASTROINTESTINAL: Denies change in appetite, denies abdominal pain GENITOURINARY: Denies hematuria, denies infections. MUSKULOSKELETAL: Denies pain, denies swelling. INTEGUMENTARY: Denies rash, denies eczema. NEUROLOGICAL: Denies recent memory loss, no recent seizure activity. PSYCHIATRIC: Denies anxiety, denies depression. HEMATOLOGIC/LYMPHATIC: Denies anemia, denies enlarged lymph nodes. Past Medical History Past Medical History: COPD, Diabetes Mellitus, Eye Disorder, Hyperlipidemia, Hypertension, Osteoarthritis (OA) Additional Past Medical History / Comment(s): gets Cortisone injections in both knees. skin cancer removed from nose. Myasthenia Gravis History of Any Multi-Drug Resistant Organisms: None Reported Past Surgical History: Section, Heart Catheterization With Stent Past Anesthesia/Blood Transfusion Reactions: No Reported Reaction Date of Last Stent Placement:: 2004 Past Psychological History: No Psychological Hx Reported Smoking Status: Former smoker Past Alcohol Use History: Occasional Past Drug Use History: None Reported - Past Family History Mother Family Medical History: Cancer, Myocardial Infarction ([place]) Father Family Medical History: COPD, Rheumatoid Arthritis (RA) Medications and Allergies Home Medications Medication Instructions Recorded Confirmed Type Citalopram Hydrobromide 20 mg PO DAILY 03/01/17 03/07/24 History [Citalopram HBr] Potassium Chloride [Klor-Con 10 ER] 10 meq PO HS 03/01/17 03/07/24 History glyBURIDE [Diabeta] 5 mg PO BID 03/01/17 03/07/24 History Aspirin [Adult Low Dose Aspirin EC] 81 mg PO DAILY 05/07/20 03/07/24 History Metoprolol Succinate [Toprol XL] 25 mg PO DAILY 05/07/20 03/07/24 History Pyridostigmine [Mestinon] 180 mg PO BID 05/07/20 03/07/24 History Rosuvastatin Calcium [Crestor] 40 mg PO HS 07/05/20 03/07/24 History Ergocalciferol (Vitamin D2) 1,250 mcg PO HO 03/07/24 03/07/24 History [Drisdol (50,000 Iu)] Insulin Glargine,Hum.rec.anlog 62 unit SQ DAILY 03/07/24 03/07/24 History [Basaglar Kwikpen U-100] Levothyroxine Sodium [Synthroid] 125 mcg PO DAILY 03/07/24 03/07/24 History Mirabegron [Myrbetriq] 25 mg PO DAILY 03/07/24 03/07/24 History Pyridostigmine [place] [Mestinon] 120 mg PO DAILY@1500 03/07/24 03/07/24 History Semaglutide [Ozempic] 2 mg SQ HO 03/07/24 03/07/24 History Allergies Allergy/AdvReac Type Severity Reaction Status Date / Time metformin Allergy Diarrhea Verified 03/07/24 07:23 Physical Exam Vitals: Vital Signs Temp Pulse Resp BP Pulse Ox 03/07/24 10:00 85 17 136/58 97 03/07/24 08:13 90 03/07/24 08:01 88 03/07/24 06:37 84 19 121/46 63 L 03/07/24 06:07 98.7 F 84 17 96 03/07/24 02:00 98.7 F 86 21 131/59 98 03/07/24 00:39 97 18 03/07/24 00:33 95 20 03/07/24 00:03 87 L 03/06/24 19:59 98.5 F 97 20 110/55 92 L Intake and Output 03/06/24 03/07/24 03/07/24 22:59 06:59 14:59 Other: Weight 85.275 kg GENERAL EXAM: Alert, very pleasant 78-year-old female, on 3 L nasal cannula, fairly comfortable in no apparent distress. HEAD: Normocephalic. EYES: Normal reaction of pupils, equal size. NOSE: Clear with pink turbinates. THROAT: No erythema or exudates. NECK: No masses, no JVD. CHEST: No chest wall deformity. LUNGS: Equal air entry with no crackles, wheeze, rhonchi or dullness. CVS: S1 and S2 normal with no audible murmur, regular rhythm. ABDOMEN: No hepatosplenomegaly, normal bowel sounds, no guarding or rigidity. SPINE: No scoliosis or deformity SKIN: No rashes CENTRAL NERVOUS SYSTEM: No focal deficits, tone is normal in all 4 extremities. EXTREMITIES: There is no peripheral edema. No clubbing, no cyanosis. Peripheral pulses are intact. Results - Laboratory Findings CBC and BMP: 03/06/24 20:04 03/06/24 20:04 PT/INR, D-dimer PT 10.3 sec (10.0-12.5) 03/06/24 20:04 INR 0.9 (<1.2) 03/06/24 20:04 Abnormal lab findings: Abnormal Labs 03/06/24 03/06/24 03/07/24 20:04 20:04 06:41 WBC 15.6 H Neutrophils # 12.8 H Eosinophils # 0.8 H Sodium 134 L Chloride 108 H BUN 18 H Glucose 234 H POC Glucose (mg/dL) 279 H 03/07/24 12:14 WBC Neutrophils # Eosinophils # Sodium Chloride BUN Glucose POC Glucose (mg/dL) 368 H - Diagnostic Findings Chest x-ray: image reviewed (No acute pulmonary process) Assessment and Plan Assessment: Acute hypoxemic respiratory failure secondary to an acute tracheobronchitis, chest x-ray shows no acute process History of myasthenia gravis Hypertension Hyperlipidemia Diabetes mellitus Plan: The patient was seen and evaluated Chest x-ray, labs and medications reviewed Initiated on DuoNeb inhalations, Symbicort Added Solu-Medrol Empiric antibiotics in the form of Augmentin Lovenox for DVT prophylaxis Continue her home medications We will continue to follow and make further recommendations based on her clinical status I have personally seen and examined the patient, performed the documentation and the assessment and plan as written. Number of minutes spent on the visit: 20.
[2024-03-07] MEDS: INSULIN DETEMIR (LEVEMIR) 100 UNIT/ML SYR SQ SCH (13:11)
[2024-03-07 17:11] LABS: Glucose,Whole Blood 377 mg/dL (70-110)
[2024-03-07 20:11] LABS: Glucose,Whole Blood 286 mg/dL (70-110)
[2024-03-07] MEDS: SYMBICORT 160-4.5 MCG INHALER INHALATION SCH (20:20)
[2024-03-07] MEDS: ATORVASTATIN 80 MG TAB PO SCH (22:21)
[2024-03-07] MEDS: methylPREDNISolone SOD SUCCI 40 MG/ML 1 ML VIAL IV SCH (22:23)
[2024-03-08] MEDS: IPRATROPIUM-ALBUTEROL 3 ML NEB INHALATION PRN (00:51)
[2024-03-08 01:51] LABS: Glucose,Whole Blood 145 mg/dL (70-110)
[2024-03-08 07:25] LABS: Glucose,Whole Blood 231 mg/dL (70-110)
[2024-03-08] MEDS: CITALOPRAM HYDROBROMIDE 20 MG TAB PO SCH (09:05)
[2024-03-08] MEDS: ASPIRIN 81 MG PO SCH (09:05)
--- NOTE | 2024-03-08 11:09 | P.PN ---
Subjective Progress Note Date: 03/08/24 This is a very pleasant 78-year-old female patient with a known history of myasthenia gravis, diabetes mellitus, hypertension, hyperlipidemia. Last weekend she traveled to [place] and came back on Sunday, March 03, 2024. She states the lady was coughing on the airplane behind her and then she now has a very loose congested cough as of breath and presented here to the emergency room at evening for the same. Chest x-ray shows no acute cardiopulmonary process. White count 15.6. Hemoglobin 14.9. Platelets 234. Sodium 134. Potassium 4.7. Bicarb 24. BUN 18. Creatinine 1.00. Glucose 234. Troponin negative x 1. Viral screen negative. She is seen today in consultation in the emergency depar tme. She is currently sitting up in a stretcher. Awake and alert in no acute distress. She continues with the congested cough. Shortness of breath with exertion. She is afebrile. She is maintaining good O2 saturations in the upper 90s on 3 L/min per nasal cannula. She is hemodynamically stable. The patient is seen today March 08, 2024 in follow-up on the regular medical floor. She is currently sitting up in bed. Awake and alert in no acute distress. Feeling just a bit better today compared to yesterday. She is still somewhat bronchospastic and wheezing. She has a loose congested cough. She is maintained on DuoNeb inhalations, Symbicort, Solu-Medrol. Empiric antibiotics in the form of Augmentin. Lovenox for DVT prophylaxis. She is maintaining good O2 saturations in the mid 90s on 1 L of oxygen per nasal cannula. She is afebrile. Hemodynamically stable. Glucose 231. Objective - Vital Signs Vital signs: Vital Signs Temp 97.7 F 03/08/24 07:26 Pulse 88 03/08/24 08:38 Resp 17 03/08/24 07:26 BP 147/69 03/08/24 07:26 Pulse Ox 95 03/08/24 07:26 FiO2 Intake & Output 03/07/24 03/08/24 03/08/24 18:59 06:59 18:59 Intake Total 540 Balance 540 Weight 85.275 kg Intake: Oral 540 Other: Voiding Method Bedside Commode Toilet Bedside Commode # Voids 1 - Exam GENERAL EXAM: Alert, 78-year-old female, on 1 L nasal cannula, fairly comfortable in no apparent distress. HEAD: Normocephalic. EYES: Normal reaction of pupils, equal size. NOSE: Clear with pink turbinates. THROAT: No erythema or exudates. NECK: No masses, no JVD. CHEST: No chest wall deformity. LUNGS: Equal air entry with few scattered rhonchi, bilateral wheeze. CVS: S1 and S2 normal with no audible murmur, regular rhythm. ABDOMEN: No hepatosplenomegaly, normal bowel sounds, no guarding or rigidity. SPINE: No scoliosis or deformity SKIN: No rashes CENTRAL NERVOUS SYSTEM: No focal deficits, tone is normal in all 4 extremities. EXTREMITIES: There is no peripheral edema. No clubbing, no cyanosis. Peripheral pulses are intact. - Labs CBC & Chem 7: 03/06/24 20:04 03/06/24 20:04 Labs: Abnormal Lab Results - Last 24 Hours (Table) 03/07/24 03/07/24 03/07/24 Range/Units 12:14 17:09 20:09 POC Glucose (mg/dL) 368 H 377 H 286 H (70-110) mg/dL 03/08/24 03/08/24 Range/Units 01:49 07:24 POC Glucose (mg/dL) 145 H 231 H (70-110) mg/dL Assessment and Plan Assessment: Acute hypoxemic respiratory failure secondary to an acute tracheobronchitis, chest x-ray shows no acute process History of myasthenia gravis Hypertension Hyperlipidemia Diabetes mellitus Plan: The patient was seen and evaluated Medications reviewed Continue DuoNeb inhalations, Symbicort Increase Solu-Medrol back to 60 mg every 6 hours Continue Augmentin Lovenox for DVT prophylaxis We will continue to follow I have personally seen and examined the patient, performed the documentation and the assessment and plan as written. Number of minutes spent on the visit: 10.
[2024-03-08 12:18] LABS: Glucose,Whole Blood 358 mg/dL (70-110)
[2024-03-08] MEDS: methylPREDNISolone SOD SUCCI 125 MG/2 ML VIAL IV SCH (12:53)
[2024-03-08] MEDS: guaiFENesin-DM 600/30MG 1 EACH TAB.ER.12H PO SCH (14:02)
[2024-03-08 17:21] LABS: Glucose,Whole Blood 319 mg/dL (70-110)
--- NOTE | 2024-03-08 20:15 | P.PN ---
Subjective Progress Note Date: 03/08/24 78-year-old pleasant female came with complaints of fever shortness of breath but does have history of myasthenia gravis patient smoked as a kid but does have history of COPD patient has been coughing bringing up some phlegm. Patient is also hyponatremic with a serum sodium of 134. Patient chest x-ray did not show pneumonia patient may have severe bronchitis. Patient does have history of bessie sthenia gravis for which patient is on physostigmine. Patient is also diabetic with requiring high dose of insulin at home. Shortness of breath significantly improved since yesterday patient is saturating 97% on 2 L patient was requiring 3 L and was desaturating last night. 03/08/2024 Patient evaluated today in follow up resting in bed. Continues to report productive cough mild but having issues bringing up alot of sputum. Continues on bronchodilators and steroids. Having some expiratory wheezing. Review of Systems Constitutional: Denied any fatigue denied any fever. Cardio vascular: denied any chest pain, palpitations Gastrointestinal: denied any nausea, vomiting, diarrhea Pulmonary: Denied any shortness of breath cough Neurologic denied any new focal deficits All inpatient medications were reviewed and appropriate changes in these medications as dictated in the interval history and assessment and plan. PHYSICAL EXAMINATION: GENERAL: The patient is alert and oriented x3, not in any acute distress. Well developed, well nourished. HEENT: Pupils are round and equally reacting to light. EOMI. No scleral icterus. No conjunctival pallor. Normocephalic, atraumatic. No pharyngeal erythema. No thyromegaly. CARDIOVASCULAR: S1 and S2 present. No murmurs, rubs, or gallops. PULMONARY: Expiratory wheezing on exam ABDOMEN: Soft, nontender, nondistended, normoactive bowel sounds. No palpable organomegaly. MUSCULOSKELETAL: No joint swelling or deformity. EXTREMITIES: No cyanosis, clubbing, or pedal edema. NEUROLOGICAL: Gross neurological examination did not reveal any focal deficits. SKIN: No rashes. Assessment and plan -COPD with acute exacerbation and bacterial tracheobronchitiss, continues on IV solumedrol, bronchodilators. Remains on oral Augmentin. -Type 2 diabetes mellitus blood sugars are expected to go up patient was resumed on home regimen except for metformin along with high-dose sliding scale, increasing levemir at HS and add scheduled insulin. -Hyperlipidemia -hypovolemic hyponatremia treated with IV fluids and repeat BMP in the AM. -Hypertension -Hx of myasthenia gravis continues on home dose of mestinon DVT prophylaxis: Lovenox The impression and plan of care has been dictated by Jade Rose, Nurse Practitioner as directed. Dr. Margot MD I have performed a history and physical examination and medical decision making of this patient, discussed the same with the dictator, and agree with the dictators assessment and plan as written, documented as a scribe. Based on total visit time, I have performed more than 50% of this visit. Objective - Vital Signs Vital signs: Vital Signs Temp 98.7 F 03/08/24 18:56 Pulse 84 03/08/24 19:40 Resp 18 03/08/24 18:56 BP 104/45 03/08/24 18:56 Pulse Ox 95 03/08/24 18:56 FiO2 Intake & Output 03/08/24 03/08/24 03/09/24 06:59 18:59 06:59 Intake Total 200 Balance 200 Intake: Oral 200 Other: Voiding Method Toilet Toilet Bedside Commode Bedside Commode # Voids 1 4 1 # Bowel Movements 2 - Labs CBC & Chem 7: 03/06/24 20:04 03/06/24 20:04 Labs: Abnormal Lab Results - Last 24 Hours (Table) 03/07/24 03/08/24 03/08/24 Range/Units 20:09 01:49 07:24 POC Glucose (mg/dL) 286 H 145 H 231 H (70-110) mg/dL 03/08/24 03/08/24 Range/Units 12:17 17:20 POC Glucose (mg/dL) 358 H 319 H (70-110) mg/dL Assessment and Plan Time with Patient: Less than 30
[2024-03-08 20:18] LABS: Glucose,Whole Blood 326 mg/dL (70-110)
[2024-03-08] MEDS: INSULIN ASPART (NovoLOG) 100 UNIT/ML VIAL SQ SCH (21:35)
[2024-03-08] MEDS: INSULIN DETEMIR (LEVEMIR) 100 UNIT/ML SYR SQ SCH (21:35)
[2024-03-09 07:23] LABS: Glucose,Whole Blood 235 mg/dL (70-110)
[2024-03-09] MEDS: INSULIN ASPART (NovoLOG) 100 UNIT/ML VIAL SQ SCH (08:56)
[2024-03-09] MEDS: INSULIN DETEMIR (LEVEMIR) 100 UNIT/ML SYR SQ SCH (08:56)
[2024-03-09 09:38] LABS: BUN/Creat Ratio 31.56 Ratio (12.00-20.00); Blood Urea Nitrogen 28.4 mg/dL (9.0-27.0); Carbon Dioxide 24.1 mmol/L (21.6-31.8); Chloride 106 mmol/L (96-109); Glucose 224 mg/dL (70-110); Potassium 4.5 mmol/L (3.5-5.5); Sodium 139 mmol/L (135-145)
[2024-03-09 09:39] LABS: Calcium 9.6 mg/dL (8.7-10.3)
--- NOTE | 2024-03-09 10:32 | P.PN ---
Subjective Progress Note Date: 03/09/24 This is a very pleasant 78-year-old female patient with a known history of myasthenia gravis, diabetes mellitus, hypertension, hyperlipidemia. Last weekend she traveled to [place] and came back on Sunday, March 03, 2024. She states the lady was coughing on the airplane behind her and then she now has a very loose congested cough as of breath and presented here to the emergency room at evening for the same. Chest x-ray shows no acute cardiopulmonary process. White count 15.6. Hemoglobin 14.9. Platelets 234. Sodium 134. Potassium 4.7. Bicarb 24. BUN 18. Creatinine 1.00. Glucose 234. Troponin negative x 1. Viral screen negative. She is seen today in consultation in the emergency depar tme. She is currently sitting up in a stretcher. Awake and alert in no acute distress. She continues with the congested cough. Shortness of breath with exertion. She is afebrile. She is maintaining good O2 saturations in the upper 90s on 3 L/min per nasal cannula. She is hemodynamically stable. The patient is seen today March 08, 2024 in follow-up on the regular medical floor. She is currently sitting up in bed. Awake and alert in no acute distress. Feeling just a bit better today compared to yesterday. She is still somewhat bronchospastic and wheezing. She has a loose congested cough. She is maintained on DuoNeb inhalations, Symbicort, Solu-Medrol. Empiric antibiotics in the form of Augmentin. Lovenox for DVT prophylaxis. She is maintaining good O2 saturations in the mid 90s on 1 L of oxygen per nasal cannula. She is afebrile. Hemodynamically stable. Glucose 231. The patient is seen today March 09, 2024 in follow-up on the regular medical floor. Awake and alert in no acute distress. Maintaining good O2 saturations in the 90s on 2 L/min per nasal cannula. She is breathing easier today compared to yesterday. Still with some expiratory wheeze and a loose congested cough. Sodium 139. Potassium 4.5. Bicarb 24. BUN 28. Creatinine 0.9. Glucose 224. She is continued on DuoNeb inhalations, Symbicort, Solu-Medrol. Remains on empiric antibiotics in the form of Augmentin. Continued on Mucinex. Remains on normal saline at 75 MLS per hour. Objective - Vital Signs Vital signs: Vital Signs Temp 98.1 F 03/09/24 07:21 Pulse 85 03/09/24 08:07 Resp 17 03/09/24 07:21 BP 148/69 03/09/24 07:21 Pulse Ox 96 03/09/24 07:21 FiO2 Intake & Output 03/08/24 03/09/24 03/09/24 18:59 06:59 18:59 Intake Total 200 Balance 200 Intake: Oral 200 Other: Voiding Method Toilet Bedside Commode # Voids 4 1 # Bowel Movements 2 - Exam GENERAL EXAM: Alert, 78-year-old female, sitting up in bed, on 2 L nasal cannula, fairly comfortable in no apparent distress. HEAD: Normocephalic. EYES: Normal reaction of pupils, equal size. NOSE: Clear with pink turbinates. THROAT: No erythema or exudates. NECK: No masses, no JVD. CHEST: No chest wall deformity. LUNGS: Equal air entry with few scattered rhonchi, bilateral wheeze. CVS: S1 and S2 normal with no audible murmur, regular rhythm. ABDOMEN: No hepatosplenomegaly, normal bowel sounds, no guarding or rigidity. SPINE: No scoliosis or deformity SKIN: No rashes CENTRAL NERVOUS SYSTEM: No focal deficits, tone is normal in all 4 extremities. EXTREMITIES: There is no peripheral edema. No clubbing, no cyanosis. Peripheral pulses are intact. - Labs CBC & Chem 7: 03/06/24 20:04 03/09/24 04:50 Labs: Abnormal Lab Results - Last 24 Hours (Table) 03/08/24 03/08/24 03/08/24 Range/Units 12:17 17:20 20:16 BUN (9.0-27.0) mg/dL BUN/Creatinine Ratio (12.00-20.00) Ratio Glucose (70-110) mg/dL POC Glucose (mg/dL) 358 H 319 H 326 H (70-110) mg/dL 03/09/24 03/09/24 Range/Units 04:50 07:22 BUN 28.4 H (9.0-27.0) mg/dL BUN/Creatinine Ratio 31.56 H (12.00-20.00) Ratio Glucose 224 H (70-110) mg/dL POC Glucose (mg/dL) 235 H (70-110) mg/dL Assessment and Plan Assessment: Acute hypoxemic respiratory failure secondary to an acute tracheobronchitis, chest x-ray shows no acute process History of myasthenia gravis Hypertension Hyperlipidemia Diabetes mellitus Plan: The patient was seen and evaluated Medications and labs reviewed Continue the current treatment plan Titrate the FiO2 as tolerated Possible discharge in a.m. We will continue to follow I have personally seen and examined the patient, performed the documentation and the assessment and plan as written. Number of minutes spent on the visit: 10.
[2024-03-09] MEDS: ERGOCALCIFEROL 1,250 MCG (50,000 IU) CAPSULE PO SCH (11:04)
[2024-03-09 12:33] LABS: Glucose,Whole Blood 262 mg/dL (70-110)
--- NOTE | 2024-03-09 16:18 | P.PN ---
Subjective Progress Note Date: 03/09/24 78-year-old pleasant female came with complaints of fever shortness of breath but does have history of myasthenia gravis patient smoked as a kid but does have history of COPD patient has been coughing bringing up some phlegm. Patient is also hyponatremic with a serum sodium of 134. Patient chest x-ray did not show pneumonia patient may have severe bronchitis. Patient does have history of myasthenia gravis for which patient is on physostigmine. Patient is also diabetic with requiring high dose of insulin at home. Shortness of breath significantly improved since yesterday patient is saturating 97% on 2 L patient was requiring 3 L and was desaturating last night. 03/08/2024 Patient evaluated today in follow up resting in bed. Continues to report productive cough mild but having issues bringing up alot of sputum. Continues on bronchodilators and steroids. Having some expiratory wheezing. 03/09/2024 Patient is evaluated today in follow-up on the floor. Patient reports that her cough is less harsh she is able to bring up sputum. She is also less wheezy today. She was felt less fatigued and more energetic was able to get up in the shower. Patient is being followed closely by pulmonary services will continue on IV steroids and will be considered for discharge home tomorrow. Review of Systems Constitutional: Denied any fatigue denied any fever. Cardio vascular: denied any chest pain, palpitations Gastrointestinal: denied any nausea, vomiting, diarrhea Pulmonary: Denied any shortness of breath cough Neurologic denied any new focal deficits All inpatient medications were reviewed and appropriate changes in these medications as dictated in the interval history and assessment and plan. PHYSICAL EXAMINATION: GENERAL: The patient is alert and oriented x3, not in any acute distress. Well developed, well nourished. HEENT: Pupils are round and equally reacting to light. EOMI. No scleral icterus. No conjunctival pallor. Normocephalic, atraumatic. No pharyngeal erythema. No thyromegaly. CARDIOVASCULAR: S1 and S2 present. No murmurs, rubs, or gallops. PULMONARY: Expiratory wheezing on exam ABDOMEN: Soft, nontender, nondistended, normoactive bowel sounds. No palpable or ganomegaly. MUSCULOSKELETAL: No joint swelling or deformity. EXTREMITIES: No cyanosis, clubbing, or pedal edema. NEUROLOGICAL: Gross neurological examination did not reveal any focal deficits. SKIN: No rashes. Assessment and plan -COPD with acute exacerbation and bacterial tracheobronchitiss, continues on IV solumedrol, bronchodilators. Remains on oral Augmentin. -Type 2 diabetes mellitus blood sugars are expected to go up patient was resumed on home regimen except for metformin along with high-dose sliding scale, increasing levemir at HS and add scheduled insulin. -Hyperlipidemia -hypovolemic hyponatremia treated with IV fluids and repeat BMP in the AM. -Hypertension -Hx of myasthenia gravis continues on home dose of mestinon DVT prophylaxis: Lovenox The impression and plan of care has been dictated by Jade Rose Nurse Practitioner as directed. Dr. Margot MD I have performed a history and physical examination and medical decision making of this patient, discussed the same with the dictator, and agree with the dictators assessment and plan as written, documented as a scribe. Based on total visit time, I have performed more than 50% of this visit. Objective - Vital Signs Vital signs: Vital Signs Temp 98.1 F 03/09/24 07:21 Pulse 85 03/09/24 08:07 Resp 17 03/09/24 07:21 BP 148/69 03/09/24 07:21 Pulse Ox 96 03/09/24 07:21 FiO2 Intake & Output 03/08/24 03/09/24 03/09/24 18:59 06:59 18:59 Intake Total 200 Balance 200 Intake: Oral 200 Other: Voiding Method Toilet Bedside Commode # Voids 4 1 # Bowel Movements 2 - Labs CBC & Chem 7: 03/06/24 20:04 03/09/24 04:50 Labs: Abnormal Lab Results - Last 24 Hours (Table) 03/08/24 03/08/24 03/08/24 Range/Units 12:17 17:20 20:16 POC Glucose (mg/dL) 358 H 319 H 326 H (70-110) mg/dL 03/09/24 Range/Units 07:22 POC Glucose (mg/dL) 235 H (70-110) mg/dL
[2024-03-09 17:16] LABS: Glucose,Whole Blood 207 mg/dL (70-110)
[2024-03-09 19:28] VITALS: RESP 18
[2024-03-09 20:25] LABS: Glucose,Whole Blood 241 mg/dL (70-110)
[2024-03-10] MEDS ORDERED: IPRATROPIUM-ALBUTEROL 3 ML NEB ONE (00:01)
[2024-03-10] MEDS ORDERED: INSULIN ASPART (NovoLOG) 100 UNIT/ML VIAL SQ ONE ×5 (00:01→20:39)
[2024-03-10] MEDS ORDERED: INSULIN DETEMIR (LEVEMIR) 100 UNIT/ML SYR SQ ONE (00:01)
[2024-03-10] MEDS ORDERED: glipiZIDE 10 MG TAB ONE (00:01)
[2024-03-10] MEDS ORDERED: SYMBICORT 160-4.5 MCG INHALER INHALATION ONE (00:01)
[2024-03-10] MEDS ORDERED: PYRIDOSTIGMINE 60 MG TAB ONE (00:01)
[2024-03-10] MEDS ORDERED: guaiFENesin-DM 600/30MG 1 EACH TAB.ER.12H PO ONE (00:01)
[2024-03-10 02:05] VITALS: BP 113/62; PULSE 77; TEMP 97.4
[2024-03-10 07:31] LABS: Glucose,Whole Blood 187 mg/dL (70-110)
[2024-03-10] MEDS ORDERED: METOPROLOL SUCCINATE (ER) 25 MG TAB.ER.24H PO ONE (08:14)
[2024-03-10] MEDS ORDERED: ASPIRIN 81 MG ONE (08:14)
[2024-03-10] MEDS ORDERED: AMOXIC-POT CLAV 875-125MG 1 EACH TAB ONE ×2 (08:15→20:33)
[2024-03-10] MEDS ORDERED: CITALOPRAM HYDROBROMIDE 20 MG TAB ONE (08:16)
[2024-03-10] MEDS ORDERED: ENOXAPARIN 40 MG/0.4 ML SYRINGE SQ ONE (08:16)
[2024-03-10 12:26] LABS: Glucose,Whole Blood 200 mg/dL (70-110)
[2024-03-10] MEDS ORDERED: methylPREDNISolone SOD SUCCI 125 MG/2 ML VIAL ONE ×3 (12:46→23:43)
[2024-03-10 17:02] LABS: Glucose,Whole Blood 170 mg/dL (70-110)
[2024-03-10 20:19] LABS: Glucose,Whole Blood 228 mg/dL (70-110)
[2024-03-10] MEDS ORDERED: ATORVASTATIN 80 MG TAB ONE (20:33)
[2024-03-11] MEDS ORDERED: guaiFENesin-DM 600/30MG 1 EACH TAB.ER.12H PO ONE (00:01)
[2024-03-11] MEDS ORDERED: LEVOTHYROXINE 125 MCG TAB ONE (00:01)
[2024-03-11] MEDS ORDERED: SYMBICORT 160-4.5 MCG INHALER INHALATION ONE (00:01)
[2024-03-11] MEDS ORDERED: INSULIN ASPART (NovoLOG) 100 UNIT/ML VIAL SQ ONE ×3 (00:01→21:06)
[2024-03-11] MEDS ORDERED: PYRIDOSTIGMINE 60 MG TAB ONE (00:01)
[2024-03-11] MEDS ORDERED: INSULIN DETEMIR (LEVEMIR) 100 UNIT/ML SYR SQ ONE (00:01)
[2024-03-11] MEDS ORDERED: glipiZIDE 10 MG TAB ONE (00:01)
[2024-03-11] MEDS ORDERED: IPRATROPIUM-ALBUTEROL 3 ML NEB ONE ×3 (00:01→20:14)
[2024-03-11] MEDS ORDERED: SODIUM CHLORIDE 0.9% 1,000 ML BAG ONE (00:01)
[2024-03-11] MEDS ORDERED: methylPREDNISolone SOD SUCCI 125 MG/2 ML VIAL ONE ×3 (06:04→18:38)
[2024-03-11 07:21] LABS: Glucose,Whole Blood 207 mg/dL (70-110)
[2024-03-11] MEDS ORDERED: ASPIRIN 81 MG ONE (09:51)
[2024-03-11] MEDS ORDERED: METOPROLOL SUCCINATE (ER) 25 MG TAB.ER.24H PO ONE (09:51)
[2024-03-11] MEDS ORDERED: CITALOPRAM HYDROBROMIDE 20 MG TAB ONE (09:52)
[2024-03-11] MEDS ORDERED: ENOXAPARIN 40 MG/0.4 ML SYRINGE SQ ONE (09:52)
[2024-03-11] MEDS ORDERED: AMOXIC-POT CLAV 875-125MG 1 EACH TAB ONE ×2 (09:52→20:41)
[2024-03-11 12:39] LABS: Glucose,Whole Blood 51 mg/dL (70-110)
[2024-03-11 13:00] LABS: Glucose,Whole Blood 59 mg/dL (70-110)
[2024-03-11 13:24] LABS: Glucose,Whole Blood 66 mg/dL (70-110)
[2024-03-11 13:42] LABS: Glucose,Whole Blood 89 mg/dL (70-110)
[2024-03-11 17:01] LABS: Glucose,Whole Blood 117 mg/dL (70-110)
[2024-03-11 20:29] LABS: Glucose,Whole Blood 244 mg/dL (70-110)
[2024-03-11] MEDS ORDERED: ATORVASTATIN 80 MG TAB ONE (20:41)
[2024-03-11] MEDS ORDERED: IMMUNE GLOBULIN 30 GM/300 ML IV ONE ×2 (23:00→23:59)
[2024-03-12] MEDS ORDERED: INSULIN DETEMIR (LEVEMIR) 100 UNIT/ML SYR SQ ONE ×2 (00:01→23:59)
[2024-03-12] MEDS ORDERED: PYRIDOSTIGMINE 60 MG TAB ONE (00:01)
[2024-03-12] MEDS ORDERED: glipiZIDE 10 MG TAB ONE (00:01)
[2024-03-12] MEDS ORDERED: INSULIN ASPART (NovoLOG) 100 UNIT/ML VIAL SQ ONE ×5 (00:01→20:37)
[2024-03-12] MEDS ORDERED: ERGOCALCIFEROL 1,250 MCG (50,000 IU) CAPSULE ONE (00:01)
[2024-03-12] MEDS ORDERED: methylPREDNISolone SOD SUCCI 125 MG/2 ML VIAL ONE ×5 (00:10→23:39)
[2024-03-12 07:02] LABS: Glucose,Whole Blood 191 mg/dL (70-110)
[2024-03-12] MEDS ORDERED: SYMBICORT 160-4.5 MCG INHALER INHALATION ONE ×2 (07:25→19:02)
[2024-03-12] MEDS ORDERED: IPRATROPIUM-ALBUTEROL 3 ML NEB ONE ×5 (07:25→23:15)
[2024-03-12] MEDS ORDERED: ASPIRIN 81 MG ONE (08:40)
[2024-03-12] MEDS ORDERED: METOPROLOL SUCCINATE (ER) 25 MG TAB.ER.24H PO ONE (08:40)
[2024-03-12] MEDS ORDERED: AMOXIC-POT CLAV 875-125MG 1 EACH TAB ONE ×2 (08:41→19:54)
[2024-03-12] MEDS ORDERED: CITALOPRAM HYDROBROMIDE 20 MG TAB ONE (08:41)
[2024-03-12] MEDS ORDERED: ENOXAPARIN 40 MG/0.4 ML SYRINGE SQ ONE (08:42)
[2024-03-12 11:59] LABS: Glucose,Whole Blood 340 mg/dL (70-110)
[2024-03-12 17:09] LABS: Glucose,Whole Blood 285 mg/dL (70-110)
[2024-03-12] MEDS ORDERED: IMMUNE GLOBULIN 30 GM/300 ML IV ONE ×2 (19:00→23:59)
[2024-03-12] MEDS ORDERED: ATORVASTATIN 80 MG TAB ONE (19:54)
[2024-03-12 20:16] LABS: Glucose,Whole Blood 237 mg/dL (70-110)
[2024-03-13] MEDS ORDERED: methylPREDNISolone SOD SUCCI 125 MG/2 ML VIAL ONE ×2 (05:23→13:00)
[2024-03-13 07:18] LABS: Glucose,Whole Blood 242 mg/dL (70-110)
[2024-03-13] MEDS ORDERED: IPRATROPIUM-ALBUTEROL 3 ML NEB ONE ×2 (07:49→11:05)
[2024-03-13] MEDS ORDERED: SYMBICORT 160-4.5 MCG INHALER INHALATION ONE (08:05)
[2024-03-13] MEDS ORDERED: ASPIRIN 81 MG ONE (09:16)
[2024-03-13] MEDS ORDERED: METOPROLOL SUCCINATE (ER) 25 MG TAB.ER.24H PO ONE (09:16)
[2024-03-13] MEDS ORDERED: ENOXAPARIN 40 MG/0.4 ML SYRINGE SQ ONE (09:17)
[2024-03-13] MEDS ORDERED: CITALOPRAM HYDROBROMIDE 20 MG TAB ONE (09:17)
[2024-03-13] MEDS ORDERED: AMOXIC-POT CLAV 875-125MG 1 EACH TAB ONE (09:17)
[2024-03-13] MEDS ORDERED: INSULIN ASPART (NovoLOG) 100 UNIT/ML VIAL SQ ONE ×2 (09:17→13:00)
[2024-03-13] MEDS ORDERED: ERGOCALCIFEROL 1,250 MCG (50,000 IU) CAPSULE ONE (12:00)
[2024-03-13] MEDS ORDERED: INSULIN DETEMIR (LEVEMIR) 100 UNIT/ML SYR SQ ONE (12:00)
[2024-03-13 12:10] LABS: Glucose,Whole Blood 256 mg/dL (70-110)
== END 2024-03-13 13:54 | disposition home or self-care (01) | DRG 190 ==
LOC: SUPCPDRO 19:11 → EC 19:11 → 5NMEDONC 03-07 00:33 → OBSVTOIN 03-07 10:33 → 5NMEDONC 03-07 12:17
PROVIDERS: ADMIT Internal Medicine; ATTEND Internal Medicine
DX: J44.1 Chronic obstructive pulmonary disease with (acute) exacerbation (principal); J96.01 Acute respiratory failure with hypoxia; E87.1 Hypo-osmolality and hyponatremia; E11.9 Type 2 diabetes mellitus without complications; I10 Essential (primary) hypertension; J20.8 Acute bronchitis due to other specified organisms; E78.5 Hyperlipidemia, unspecified; E86.1 Hypovolemia; G70.00 Myasthenia gravis without (acute) exacerbation; Z79.1 Long term (current) use of non-steroidal anti-inflammatories (NSAID); Z79.4 Long term (current) use of insulin; Z79.82 Long term (current) use of aspirin; Z79.84 Long term (current) use of oral hypoglycemic drugs; Z79.890 Hormone replacement therapy; Z79.899 Other long term (current) drug therapy; Z82.49 Family history of ischemic heart disease and other diseases of the circulatory system; Z82.5 Family history of asthma and other chronic lower respiratory diseases; Z85.828 Personal history of other malignant neoplasm of skin; Z87.891 Personal history of nicotine dependence; Z11.52 Encounter for screening for COVID-19
CPT/HCPCS: 36415; 71046; 80048; 80053; 83605; 83735; 84484; 85025; 85610; 85730; 87636; 93005; 94150; 94640; 94660; 94760; 96361; 96372; 96374; 99285

== ENCOUNTER 2024-05-07 11:12 | Day surgery (SDC) | payer MEDICARE ==
[2024-05-01 15:31] VITALS: BMI 34.9
[~2024-05-07 11:12] MED LIST: ALPRAZolam 0.25 MG TAB PO PRN; ALPRAZolam 0.5 MG TAB PO PRN; ASPIRIN 325 MG TAB PO PRN; ASPIRIN 81 MG PO PRN; CLOPIDOGREL 75 MG TAB PO PRN; RX INFO: IV CONTRAST WAS GIVEN 1 EACH MISC MISCELLANE PRN
[2024-05-07 11:51] LABS: Glucose,Whole Blood 238 mg/dL (70-110)
[2024-05-07 11:57] LABS: Basophils # (A) 0.1 k/uL (0-0.2); Basophils % (A) 1 %; Eosinophils # (A) 0.4 k/uL (0-0.7); Eosinophils % (A) 4 %; HCT 42.5 % (34.0-46.0); HGB 14.2 gm/dL (11.4-16.0); Lymphocytes # (A) 1.5 k/uL (1.0-4.8); Lymphocytes % (A) 13 %; MCH 29.1 pg (25.0-35.0); MCHC 33.3 g/dL (31.0-37.0); MCV 87.4 fL (80.0-100.0); Monocytes # (A) 0.6 k/uL (0-1.0); Monocytes % (A) 5 %; Neutrophils # (A) 9.3 k/uL (1.3-7.7); Neutrophils % (A) 77 %; Platelet Count 252 k/uL (150-450); RBC 4.86 m/uL (3.80-5.40); RDW 14.8 % (11.5-15.5); WBC 12.1 k/uL (3.8-10.6)
[2024-05-07] MEDS: SODIUM CHLORIDE 0.9% 1,000 ML in EMPTY BAG 1 BAG IV ONE (11:57)
[2024-05-07] MEDS: INSULIN ASPART (NovoLOG) 100 UNIT/ML VIAL SQ ONE (11:57)
[2024-05-07 12:01] VITALS: RESP 16
[2024-05-07 12:13] LABS: African American GFR (CKD) 76 (>60 ml/min/1.73 sqM); Anion Gap 5 mmol/L; Blood Urea Nitrogen 23 mg/dL (7-17); Calcium 9.9 mg/dL (8.4-10.2); Carbon Dioxide 23 mmol/L (22-30); Chloride 110 mmol/L (98-107); Glucose 228 mg/dL (74-99); Non-African American GFR(CKD) 66 (>60 ml/min/1.73 sqM); Potassium 4.3 mmol/L (3.5-5.1); Sodium 138 mmol/L (137-145)
[2024-05-07] MEDS: IV FLUID CONTINUATION 1,000 ML IV ONE (13:30)
[2024-05-07] MEDS: LIDOCAINE 1% INJ 10MG/ML (20 ML MDV) SQ ONE (13:36)
[2024-05-07] MEDS: HEPARIN SODIUM 1,000 UN/ML (10ML VL) IV ONE (13:39)
[2024-05-07] MEDS: ATROPINE SULFATE 0.1 MG/ML 10ML SYRINGE IV ONE (14:20)
[2024-05-07] MEDS: PHENYLEPHRINE-0.9% NACL SYG 1,000 MCG/10 ML SYRINGE IVP ONE (14:22)
[2024-05-07] MEDS: IOPAMIDOL-370 100ML BTL INJ ONE (14:31)
[2024-05-07] MEDS: HEPARIN SODIUM,PORCINE (1 ML) 2,500 UNIT in SODIUM CHLORIDE 0.9% 250 ML IRRIGATION ONE (14:32)
[2024-05-07] MEDS: HEPARIN SODIUM,PORCINE 10,000 UNIT in SODIUM CHLORIDE 0.9% 1,000 ML IRRIGATION ONE (14:32)
[2024-05-07] MEDS ORDERED: ATROPINE SULFATE 0.1 MG/ML 10ML SYRINGE IV PRN (14:52)
[2024-05-07] MEDS ORDERED: MAG HYDROX/AL HYDROX/SIMETH 30 ML CUP PO PRN (14:52)
[2024-05-07 17:11] LABS: Glucose,Whole Blood 250 mg/dL (70-110)
--- NOTE | 2024-05-07 17:39 | P.PCN ---
Description of Procedure: DESCRIPTION OF PROCEDURE(S): PROCEDURES PERFORMED: Ascending aortic root angiography, selective left carotid angiography, left internal carotid artery stent with a 6-8 x 30mm Xact stent, post dilated with a 5.0mm balloon INDICATION: Obstructive carotid artery stenosis by MRA and symptomatic carotid artery stenosis with right TIA symptoms CONSENT:I have discussed the risks, benefits and alternative therapies for the above-mentioned procedure and for both sedation/analgesia as well as necessary blood product administration, if indicated, as they pertain to this patient. The patient has indicated understanding and acceptance of the risks and procedures discussed. PROCEDURE: After the risks, benefits and alternatives of the above mentioned procedure explained in detail with the patient, informed consent was obtained. Patient was taken to the catheterization lab and prepped and draped in usual fashion. 1% lidocaine was used to anesthetize the right femoral area. A 6- Welsh sheath was placed in the right femoral artery using modified Seldinger technique. A 5-Welsh pigtail catheter was inserted to the ascending aorta and DSA imaging was obtained. Next using VTK catheter the left internal carotid arteries were engaged and selective angiography was performed. Angiography showed severe 95% left internal carotid disease and therefore intervention was recommended. The decision was made to perform left internal carotid artery stenting. A 0.035 glide advantage was placed in the left external carotid artery. Over the glide advantage, a 6-Welsh long shuttle catheter was advanced to the left internal carotid artery. A 0.014 wire with filter was advanced across the severely stenotic left internal carotid artery and advanced into the petrous portion of the left internal carotid where the filter was placed. Next balloon angioplasty was performed with a 4.0 balloon. Next a 8 x 6 x 30 mm Xact carotid stent was placed extending from the left common carotid and the left internal carotid artery. The stent was postdilated with a 5.0 balloon. Final angiograms were performed. Patient did have some decrease in blood pressure treated with atropine and Graeme-Synephrine temporarily however was stable by the end of the case.Previous intervention there was 95% stenosis with somewhat sluggish flow and postintervention there was less than 10% stenosis with unimpeded flow. A right femoral angiogram was performed and anatomoy was suitable for closure. A 6Fr Angioseal was placed with hemostasis achieved. The patient tolerated the procedure well. Patient was transported back to the post catheterization holding area in stable condition. Conscious Sedation: Patient was monitored under the direct supervision of vision of myself for conscious sedation using Versed and fentanyl for a total duration of 50 minutes ASCENDING AORTA: There is no significant aneurysm or stenosis. Right common carotid: Appears patent Right internal carotid artery: Dedicated images not performed however appeared to have 20-30% stenosis Left common carotid: No significant stenosis Left internal carotid artery: 95% proximal left internal carotid artery stenosis FINAL IMPRESSION: 1. 95% proximal left internal carotid artery stenosis 2. S/p left internal carotid artery stent with a 6-8 x 30mm Xact stent, post dilated with a 5.0mm balloon PLAN: 1. Aggressive risk factor modification per most recent ACC/AHA guidelines. 2. Continue aspirin and Plavix for 6 months
[2024-05-07 19:56] LABS: Glucose,Whole Blood 277 mg/dL (70-110)
[2024-05-07] MEDS: POTASSIUM CHLORIDE ER 10 MEQ TAB.ER.PRT PO SCH (20:06)
[2024-05-07] MEDS: glipiZIDE 10 MG TAB PO SCH (20:07)
[2024-05-07] MEDS: ATORVASTATIN 80 MG TAB PO SCH (20:07)
[2024-05-07] MEDS: PYRIDOSTIGMINE 60 MG TAB PO SCH (20:07)
[2024-05-08 05:56] LABS: Glucose,Whole Blood 163 mg/dL (70-110)
[2024-05-08] MEDS: LEVOTHYROXINE 125 MCG TAB PO SCH (06:17)
[2024-05-08 08:01] LABS: Basophils % (A) 0 %; Eosinophils # (A) 0.3 k/uL (0-0.7); Eosinophils % (A) 4 %; HCT 35.8 % (34.0-46.0); HGB 11.8 gm/dL (11.4-16.0); Lymphocytes # (A) 1.8 k/uL (1.0-4.8); Lymphocytes % (A) 21 %; MCH 29.5 pg (25.0-35.0); MCHC 32.9 g/dL (31.0-37.0); MCV 89.6 fL (80.0-100.0); Mean Platelet Volume 8.1; Monocytes # (A) 0.6 k/uL (0-1.0); Monocytes % (A) 7 %; Neutrophils # (A) 5.9 k/uL (1.3-7.7); Neutrophils % (A) 67 %; Platelet Count 177 k/uL (150-450); RBC 3.99 m/uL (3.80-5.40); WBC 8.9 k/uL (3.8-10.6)
[2024-05-08] MEDS: METOPROLOL SUCCINATE (ER) 25 MG TAB.ER.24H PO SCH (08:11)
[2024-05-08] MEDS: ASPIRIN 81 MG PO SCH (08:11)
[2024-05-08] MEDS: LINAGLIPTIN 5 MG TABLET PO SCH (08:11)
[2024-05-08] MEDS: DAPAGLIFLOZIN PROPANEDIOL 10 MG TABLET PO SCH (08:11)
[2024-05-08] MEDS: INSULIN DETEMIR (LEVEMIR) 100 UNIT/ML SYR SQ SCH (08:11)
[2024-05-08] MEDS: NON FORMULARY DRUG (Mirabegron [Myrbetriq] 25 MG Tab.Er.24h) PO SCH (08:13)
[2024-05-08 08:15] VITALS: BP 98/47; PULSE 64; TEMP 98.3
[2024-05-08 08:37] LABS: African American GFR (CKD) 79 (>60 ml/min/1.73 sqM); Anion Gap 1 mmol/L; Blood Urea Nitrogen 22 mg/dL (7-17); Calcium 9.2 mg/dL (8.4-10.2); Carbon Dioxide 25 mmol/L (22-30); Chloride 112 mmol/L (98-107); Glucose 144 mg/dL (74-99); Non-African American GFR(CKD) 68 (>60 ml/min/1.73 sqM); Potassium 4.4 mmol/L (3.5-5.1); Sodium 138 mmol/L (137-145)
[2024-05-08 11:11] LABS: Glucose,Whole Blood 213 mg/dL (70-110)
--- NOTE | 2024-05-08 13:30 | P.DS ---
Providers Attending physician: Adan Maloney DO [facility] Course: This is a 78-year-old female who underwent carotid angiogram yesterday revealing 95% proximal left internal carotid artery stenosis. She underwent stenting of left ICA. Patient examined this afternoon at the bedside. Patient denies any chest pain or pressure. She denies any shortness of breath. Denies any dizziness or lightheadedness. Patient's blood pressures are running with a systolic [place] [id number]. Patient states this is her baseline. Right groin soft with no hematoma noted. The patient was deemed stable for discharge home today from a cardiac standpoint. Patient instructed to continue on dual antiplatelet therapy with aspirin and Plavix. She is to follow-up postdischarge in the office with Dr. Richardson please see EMR for further hospital course details. Discharge diagnosis 95% proximal left internal carotid artery stenosis, status post stenting of left ICA Nurse practitioner note has been reviewed by physician. Signing provider agrees with the documented findings, assessment, and plan of care documented by ACADEMIC AFFAIRS DIRECTOR as a scribe. Plan - Discharge Summary Discharge Rx Participant: No New Discharge Prescriptions: Continue glyBURIDE [Diabeta] 5 mg PO BID Potassium Chloride [Klor-Con 10 ER] 10 meq PO HS Metoprolol Succinate [Toprol XL] 25 mg PO DAILY Aspirin [Adult Low Dose Aspirin EC] 81 mg PO DAILY Pyridostigmine [Mestinon] 180 mg PO BID Rosuvastatin Calcium [Crestor] 40 mg PO HS Insulin Glargine,Hum.rec.anlog [Veroniqueaglkristi Cormierpen U-100] 62 unit SQ QAM Mirabegron [Myrbetriq] 25 mg PO DAILY Semaglutide [Ozempic] 2 mg SQ HO Clopidogrel [Plavix] 75 mg PO DAILY Levothyroxine Sodium [Synthroid] 125 mcg PO DAILY Pyridostigmine Denbo [Mestinon] 120 mg PO DAILY@1500 Empagliflozin/Linagliptin [Glyxambi 25 mg-5 mg Tablet] 1 each PO DAILY Discharge Medication List Potassium Chloride [Klor-Con 10 ER] 10 meq PO HS 03/01/17 [History] glyBURIDE [Diabeta] 5 mg PO BID 03/01/17 [History] Aspirin [Adult Low Dose Aspirin EC] 81 mg PO DAILY 05/07/20 [History] Metoprolol Succinate [Toprol XL] 25 mg PO DAILY 05/07/20 [History] Pyridostigmine [Mestinon] 180 mg PO BID 05/07/20 [History] Rosuvastatin Calcium [Crestor] 40 mg PO HS 07/05/20 [History] Insulin Glargine,Hum.rec.anlog [Basaglar Kwikpen U-100] 62 unit SQ QAM 03/07/24 [History] Levothyroxine Sodium [Synthroid] 125 mcg PO DAILY 03/07/24 [History] Mirabegron [Myrbetriq] 25 mg PO DAILY 03/07/24 [History] Pyridostigmine Denbo [Mestinon] 120 mg PO DAILY@1500 03/07/24 [History] Semaglutide [Ozempic] 2 mg SQ HO 03/07/24 [History] Clopidogrel [Plavix] 75 mg PO DAILY 05/01/24 [History] Empagliflozin/Linagliptin [Glyxambi 25 mg-5 mg Tablet] 1 each PO DAILY 05/01/24 [History] Follow up Appointment(s)/Referral(s): David Richardson MD [STAFF PHYSICIAN] - 05/14/24 10:15 am Patient Instructions/Handouts: Carotid Artery Disease (DC), Carotid Artery Stent Placement (DC)
== END 2024-05-08 13:54 | disposition home health service (06) ==
LOC: CATHCVL 11:12 → 3SCARD 14:26 → CATHCVL 05-08 13:54
PROVIDERS: ATTEND Internal Medicine
DX: I65.23 Occlusion and stenosis of bilateral carotid arteries
CPT/HCPCS: 37215; 80048; 85025

== ENCOUNTER 2024-06-11 03:29 | Inpatient (IN) | payer MEDICARE ==
[2024-06-11 03:47] LABS: Glucose,Whole Blood 231 mg/dL (70-110)
[2024-06-11 04:15] LABS: Basophils % (A) 0 %; Eosinophils % (A) 0 %; HCT 43.1 % (34.0-46.0); HGB 13.8 gm/dL (11.4-16.0); Lymphocytes % (A) 7 %; MCH 28.2 pg (25.0-35.0); MCV 88.2 fL (80.0-100.0); Mean Platelet Volume 7.4; Monocytes # (A) 0.4 k/uL (0-1.0); Monocytes % (A) 3 %; Neutrophils # (A) 13.5 k/uL (1.3-7.7); Neutrophils % (A) 90 %; Platelet Count 243 k/uL (150-450); RBC 4.88 m/uL (3.80-5.40); RDW 14.5 % (11.5-15.5)
[2024-06-11 04:24] LABS: INR 0.9 (<1.2); Partial Thromboplastin Time 23.3 sec (22.0-30.0); Prothrombin Time 10.2 sec (10.0-12.5)
[2024-06-11] MEDS: LORazepam 2 MG/ML INJ IV STA ×2 (04:25→05:28)
[2024-06-11 04:28] LABS: ALT 41 U/L (4-34); AST 32 U/L (14-36); African American GFR (CKD) 71 (>60 ml/min/1.73 sqM); Albumin 4.3 g/dL (3.5-5.0); Alkaline Phosphatase 113 U/L (38-126); Anion Gap 4 mmol/L; Blood Urea Nitrogen 22 mg/dL (7-17); Calcium 10.2 mg/dL (8.4-10.2); Carbon Dioxide 24 mmol/L (22-30); Chloride 111 mmol/L (98-107); Creatine Kinase 82 U/L (30-135); Glucose 185 mg/dL (74-99); Non-African American GFR(CKD) 62 (>60 ml/min/1.73 sqM); Potassium 4.4 mmol/L (3.5-5.1); Sodium 139 mmol/L (137-145); Total Bilirubin 0.7 mg/dL (0.2-1.3); Total Protein 6.3 g/dL (6.3-8.2)
--- NOTE | 2024-06-11 04:32 | XR ---
EXAM: XR Chest, 1 View CLINICAL HISTORY: Pt presents to the ED with EMS with altered mental status, pt had a fall after vomiting. Pt A+Ox0. LAST WELL KNOWN TECHNIQUE: Frontal view of the chest. COMPARISON: 04/05/2022 FINDINGS: Lungs: Mild diffuse airspace opacities throughout both lungs. Pleural space: Unremarkable. Mediastinum: Calcified aorta. Normal mediastinal contour. Bones/joints: No acute findings. IMPRESSION: Lung findings can be due to underinflation versus mild pulmonary edema and less likely pneumonia.
--- NOTE | 2024-06-11 04:34 | ED ---
Altered Mental Status HPI - General Chief Complaint: Altered Mental Status Stated Complaint: AMS Time Seen by Provider: 06/11/24 03:35 Source: patient Mode of arrival: EMS - History of Present Illness Initial Comments: 78-year-old female with past medical history of myasthenia gravis, diabetes, COPD who presents emergency department with altered mental status. Son is at bedside and helps provide history. States that he last saw his mom around 5 PM and then he went out with his girlfriend. His mother tends to stay up late watching TV. He came home and noted that she went to bed around 1 AM however he did not physically see her. He was then woken up to the sound of her throwing up in her bed. She tried to ambulate from her bedroom to the front room to sit in her chair. She accidentally lost her footing and fell, hitting her head. EMS arrived and found the patient to have expressive aphasia. No history of stroke. Patient is on Plavix for a recent carotid surgery completed on May 08. There was no lateralizing weakness. Patient would follow minimal commands. No report of any fevers. They state that the patient was well throughout the day without any confusion. No report of any changes in bowel or bladder habits. Son does admit that the patient has been coughing. No other alleviating, precipitating modifying factors - Related Data Home Medications Medication Instructions Recorded Confirmed Potassium Chloride [Klor-Con 10 ER] 10 meq PO DAILY 03/01/17 06/11/24 glyBURIDE [Diabeta] 5 mg PO BID 03/01/17 06/11/24 Aspirin [Adult Low Dose Aspirin EC] 81 mg PO DAILY 05/07/20 06/11/24 Metoprolol Succinate [Toprol XL] 25 mg PO DAILY 05/07/20 06/11/24 Pyridostigmine [Mestinon] 180 mg PO BID@0900,2100 05/07/20 06/11/24 Rosuvastatin Calcium [Crestor] 40 mg PO HS 07/05/20 06/11/24 Insulin Glargine,Hum.rec.anlog 65 unit SQ DAILY 03/07/24 06/11/24 [Basaglar Bonillaikpen U-100] Levothyroxine Sodium [Synthroid] 125 mcg PO DAILY 03/07/24 06/11/24 Mirabegron [Myrbetriq] 25 mg PO DAILY 03/07/24 06/11/24 Pyridostigmine [place] [Mestinon] 120 mg PO DAILY@1500 03/07/24 06/11/24 Semaglutide [Ozempic] 2 mg SQ Q7D 03/07/24 06/11/24 Clopidogrel [Plavix] 75 mg PO DAILY 05/01/24 06/11/24 Empagliflozin/Linagliptin 1 tab PO DAILY 05/01/24 06/11/24 [Glyxambi 25 mg-5 mg Tablet] Latanoprost [Latanoprost 0.005%] 1 drop BOTH EYES HS 06/11/24 06/11/24 Vyvgart 20mg/Ml Solution 1 dose IV DIRECTED 06/11/24 06/11/24 Allergies Allergy/AdvReac Type Severity Reaction Status Date / Time metformin AdvReac Diarrhea Verified 06/11/24 09:01 Review of Systems ROS Statement: Those systems with pertinent positive or pertinent negative responses have been documented in the HPI. ROS Other: All systems not noted in ROS Statement are negative. Past Medical History Past Medical History: COPD, Diabetes Mellitus, Eye Disorder, Hyperlipidemia, Hypertension, Osteoarthritis (OA) Additional Past Medical History / Comment(s): Skin CA, Myasthenia Gravis History of Any Multi-Drug Resistant Organisms: None Reported Past Surgical History: Section, Heart Catheterization With Stent Additional Past Surgical History / Comment(s): skin CA removal Past Anesthesia/Blood Transfusion Reactions: No Reported Reaction Date of Last Stent Placement:: 2004 Past Psychological History: No Psychological Hx Reported Smoking Status: Former smoker Past Alcohol Use History: Occasional Past Drug Use History: None Reported - Past Family History Mother Family Medical History: Cancer, Myocardial Infarction ([place]) Father Family Medical History: COPD, Rheumatoid Arthritis ([place]) General Exam Limitations: altered mental status General appearance: anxious, other (agitated) Head exam: Present: atraumatic, normocephalic, normal inspection Eye exam: Present: normal appearance, PERRL, EOMI. Absent: scleral icterus, conjunctival injection, periorbital swelling Neck exam: Present: other (in c-collar) Respiratory exam: Present: normal lung sounds bilaterally. Absent: respiratory distress, wheezes, rales, rhonchi, stridor Cardiovascular Exam: Present: normal rhythm, tachycardia GI/Abdominal exam: Present: soft, normal bowel sounds. Absent: distended, tenderness, guarding, rebound, rigid Neurological exam: Present: altered, other (expressive aphasia) Psychiatric exam: Present: agitated, anxious Course Vital Signs 06/11/24 06/11/24 06/11/24 03:30 04:16 04:30 Temperature Pulse Rate 113 H 133 H 112 H Respiratory 18 19 17 Rate Blood Pressure 165/78 141/118 152/66 O2 Sat by Pulse 98 98 98 Oximetry 06/11/24 06/11/24 06/11/24 04:50 05:10 05:24 Temperature 103.1 F H Pulse Rate 111 H 114 H Respiratory 15 17 Rate Blood Pressure 160/100 108/51 O2 Sat by Pulse 96 96 Oximetry 06/11/24 06/11/24 06/11/24 05:30 05:40 06:00 Temperature Pulse Rate 114 H 115 H 125 H Respiratory 17 19 20 Rate Blood Pressure 174/105 163/62 155/59 O2 Sat by Pulse 96 96 97 Oximetry 06/11/24 06/11/24 06/11/24 06:10 06:20 07:13 Temperature 102.7 F H Pulse Rate 109 H 112 H 115 H Respiratory 18 18 22 Rate Blood Pressure 163/65 147/71 150/90 O2 Sat by Pulse 96 96 96 Oximetry 06/11/24 06/11/24 06/11/24 07:18 07:36 08:43 Temperature 102.5 F H 97.1 F L Pulse Rate 122 H 102 H Respiratory 22 Rate Blood Pressure 147/65 O2 Sat by Pulse 98 96 Oximetry 06/11/24 06/11/24 06/11/24 09:23 10:28 12:07 Temperature 100.9 F H 100.9 F H 99.9 F H Pulse Rate 125 H 107 H Respiratory 21 16 Rate Blood Pressure 161/78 161/78 O2 Sat by Pulse 99 98 Oximetry 06/11/24 14:34 Temperature Pulse Rate 95 Respiratory 16 Rate Blood Pressure 129/52 O2 Sat by Pulse 99 Oximetry Medical Decision Making - Medical Decision Making Was pt. sent in by a medical professional or institution (, PA, MINGLER OPERATOR, urgent care, hospital, or long term...) When possible be specific @ -No Did you speak to anyone other than the patient for history (EMS, parent, family, police, friend...)? What history was obtained from this source @ -Spoke with family and EMS for history Did you review nursing and triage notes (agree or disagree)? Why? @ -I reviewed and agree with nursing and triage notes Were old charts reviewed (outside hosp., previous admission, EMS record, old EKG, old radiological studies, urgent care reports/EKG's, long term records)? Report findings @ -No old charts were reviewed Differential Diagnosis (chest pain, altered mental status, abdominal pain women, abdominal pain men, vaginal bleeding, weakness, fever, dyspnea, syncope, headache, dizziness, GI bleed, back pain, seizure, CVA, palpatations, mental health, musculoskeletal)? @ -Differential Altered Mental Status: Hypoglycemia, DKA, hypercapnia, ETOH, overdose, CO poisoning, trauma, myxedema coma, HTN encephalopathy, infection, encephalitis, psychosis, intercranial hemorrhage, hepatic encephalopathy, meningitis, CVA, this is not meant to be an all-inclusive list EKG interpreted by me (3pts min.). @ -Yes and demonstrates sinus rhythm with a rate of 97. DE interval 184. QRS 88. QTc of 396. Baseline artifact. Mild ST depression V4 through V6. No visible ST elevation X-rays interpreted by me (1pt min.). @ -Yes and demonstrates possible pneumonia CT interpreted by me (1pt min.). @ -Yes and demonstrates no acute intracranial process U/S interpreted by me (1pt. min.). @ -None done What testing was considered but not performed or refused? (CT, X-rays, U/S, labs)? Why? @ -None What meds were considered but not given or refused? Why? @ -None Did you discuss the management of the patient with other professionals (professionals i.e. , PA, MINGLER OPERATOR, lab, RT, psych nurse, social science professor, hooker up, teacher, infantry weapons officer, vocational case manager)? Give summary @ -Spoke with Dr. Kim -reports negative CT of the brain. As she did present with strokelike symptoms there is consideration that we should change the patient's Plavix to Brilinta. He also recommends treatment with aspirin and cholesterol medication home Was smoking cessation discussed for >3mins.? @ -No Was critical care preformed (if so, how long)? @ -Yes, 40 minutes for code stroke activation and management Were there social determinants of health that impacted care today? How? (Homelessness, low income, unemployed, alcoholism, drug addiction, transportation, low edu. Level, literacy, decrease access to med. care, penitentiary, rehab)? @ -No Was there de-escalation of care discussed even if they declined (Discuss DNR or withdrawal of care, Hospice)? DNR status @ -No What co-morbidities impacted this encounter? (DM, HTN, Smoking, COPD, CAD, Cancer, CVA, ARF, Chemo, Hep., AIDS, mental health diagnosis, sleep apnea, morbid obesity)? @ -Carotid disease Was patient admitted / discharged? Hospital course, mention meds given and route, prescriptions, significant lab abnormalities, going to OR and other pertinent info. @ -Upon arrival patient seen and evaluated in bed 8. Thorough history and physical exam was performed. Patient is agitated, anxious and has nonsensical speech. She does not want to follow commands. Code stroke was activated. Son reports the last known that he saw her well was at 5 PM. Patient cannot provide any history and therefore this is the only time frame that we are able to obtain. She does go for CT. I did give her 1 mg of Ativan for her agitation which does improve her symptoms. She is placed back in the room and on the monitor. Laboratory studies are conducted. Patient has a white count of 15. The nurse just checked the patient's temperature and it is found to be high. Blood cultures obtained. Patient initiated on antibiotics. Chest x-ray had demonstrated possible pneumonia and son did admit that she was coughing. No other source identified at this time. I did speak with the neurointensivist. He states that if the patient is on Plavix we may consider changing the patient to Brilinta however this decision was made before noted that the patient was significantly febrile. I did give the patient rectal aspirin as well as Motrin and Tylenol. Patient does have improvement in her mentation and fever. Patient admitted to [facility]. Spoke with Dr. Borden for the admission Undiagnosed new problem with uncertain prognosis? @ -Yes Drug Therapy requiring intensive monitoring for toxicity (Heparin, Nitro, Insulin, Cardizem)? @ -No Were any procedures done? @ -No Diagnosis/symptom? @ -Acute encephalopathy, acute expressive aphasia, acute pyrexia, possible community-acquired pneumonia Acute, or Chronic, or Acute on Chronic? @ -Acute Uncomplicated (without systemic symptoms) or Complicated (systemic symptoms)? @ -Complicated Side effects of treatment? @ -No Exacerbation, Progression, or Severe Exacerbation? @ -No Poses a threat to life or bodily function? How? (Chest pain, [place], [place], pneumonia, PE, COPD, DKA, ARF, appy, cholecystitis, CVA, Diverticulitis, Homicidal, Suicidal, threat to staff... and all critical care pts) @ -Yes as patient is significantly altered - Lab Data Result diagrams: 06/11/24 03:55 06/11/24 03:55 Lab Results 06/11/24 06/11/24 06/11/24 Range/Units 03:42 03:55 03:55 WBC 15.0 H (3.8-10.6) k/uL RBC 4.88 (3.80-5.40) m/uL Hgb 13.8 (11.4-16.0) gm/dL Hct 43.1 (34.0-46.0) % MCV 88.2 (80.0-100.0) fL MCH 28.2 (25.0-35.0) pg MCHC 32.0 (31.0-37.0) g/dL RDW 14.5 (11.5-15.5) % Plt Count 243 (150-450) k/uL MPV 7.4 Neutrophils % 90 % Lymphocytes % 7 % Monocytes % 3 % Eosinophils % 0 % Basophils % 0 % Neutrophils # 13.5 H (1.3-7.7) k/uL Lymphocytes # 1.0 (1.0-4.8) k/uL Monocytes # 0.4 (0-1.0) k/uL Eosinophils # 0.0 (0-0.7) k/uL Basophils # 0.0 (0-0.2) k/uL PT 10.2 (10.0-12.5) sec INR 0.9 (<1.2) APTT 23.3 (22.0-30.0) sec Sodium (137-145) mmol/L Potassium (3.5-5.1) mmol/L Chloride (98-107) mmol/L Carbon Dioxide (22-30) mmol/L Anion Gap mmol/L BUN (7-17) mg/dL Creatinine (0.52-1.04) mg/dL Est GFR (CKD-EPI)AfAm (>60 ml/min/1.73 sqM) Est GFR (CKD-EPI)NonAf (>60 ml/min/1.73 sqM) Glucose (74-99) mg/dL POC Glucose (mg/dL) 231 H (70-110) mg/dL POC Glu Photogrammetry Airplane Pilot ID [place] Calcium (8.4-10.2) mg/dL Total Bilirubin (0.2-1.3) mg/dL AST (14-36) U/L ALT (4-34) U/L Alkaline Phosphatase (38-126) U/L Creatine Kinase (30-135) U/L Troponin I (0.000-0.034) ng/mL Total Protein (6.3-8.2) g/dL Albumin (3.5-5.0) g/dL TSH (0.465-4.680) mIU/L Free T4 (0.78-2.19) ng/dL Urine Color Urine Appearance (Clear) Urine pH (5.0-8.0) Ur Specific [place] (1.001-1.035) Urine Protein (Negative) Urine Glucose (UA) (Negative) Urine Ketones (Negative) Urine Blood (Negative) Urine Nitrite (Negative) Urine Bilirubin (Negative) Urine Urobilinogen (<2.0) mg/dL Ur Leukocyte Esterase (Negative) Salicylates mg/dL Urine Opiates Screen (NotDetected) Ur Oxycodone Screen (NotDetected) Urine Methadone Screen (NotDetected) Acetaminophen ug/mL Ur Barbiturates Screen (NotDetected) U Tricyclic Antidepress (NotDetected) Ur Phencyclidine Scrn (NotDetected) Ur Amphetamines Screen (NotDetected) U Methamphetamines Scrn (NotDetected) U Benzodiazepines Scrn (NotDetected) Urine Cocaine Screen (NotDetected) U Marijuana (THC) Screen (NotDetected) Serum Alcohol mg/dL Influenza Type A (PCR) (Not Detectd) Influenza Type B (PCR) (Not Detectd) RSV (PCR) (Not Detectd) SARS-CoV-2 (PCR) (Not Detectd) 06/11/24 06/11/24 06/11/24 Range/Units 03:55 03:55 04:26 WBC (3.8-10.6) k/uL RBC (3.80-5.40) m/uL Hgb (11.4-16.0) gm/dL Hct (34.0-46.0) % MCV (80.0-100.0) fL MCH (25.0-35.0) pg MCHC (31.0-37.0) g/dL RDW (11.5-15.5) % Plt Count (150-450) k/uL MPV Neutrophils % % Lymphocytes % % Monocytes % % Eosinophils % % Basophils % % Neutrophils # (1.3-7.7) k/uL Lymphocytes # (1.0-4.8) k/uL Monocytes # (0-1.0) k/uL Eosinophils # (0-0.7) k/uL Basophils # (0-0.2) k/uL PT (10.0-12.5) sec INR (<1.2) APTT (22.0-30.0) sec Sodium 139 (137-145) mmol/L Potassium 4.4 (3.5-5.1) mmol/L Chloride 111 H (98-107) mmol/L Carbon Dioxide 24 (22-30) mmol/L Anion Gap 4 mmol/L BUN 22 H (7-17) mg/dL Creatinine 0.89 (0.52-1.04) mg/dL Est GFR (CKD-EPI)AfAm 71 (>60 ml/min/1.73 sqM) Est GFR (CKD-EPI)NonAf 62 (>60 ml/min/1.73 sqM) Glucose 185 H (74-99) mg/dL POC Glucose (mg/dL) (70-110) mg/dL POC Glu Photogrammetry Airplane Pilot ID Calcium 10.2 (8.4-10.2) mg/dL Total Bilirubin 0.7 (0.2-1.3) mg/dL AST 32 (14-36) U/L ALT 41 H (4-34) U/L Alkaline Phosphatase 113 (38-126) U/L Creatine Kinase 82 (30-135) U/L Troponin I <0.012 (0.000-0.034) ng/mL Total Protein 6.3 (6.3-8.2) g/dL Albumin 4.3 (3.5-5.0) g/dL TSH (0.465-4.680) mIU/L Free T4 (0.78-2.19) ng/dL Urine Color Colorless Urine Appearance Clear (Clear) Urine pH 8.0 (5.0-8.0) Ur Specific [place] 1.014 (1.001-1.035) Urine Protein Negative (Negative) Urine Glucose (UA) 4+ H (Negative) Urine Ketones Negative (Negative) Urine Blood Negative (Negative) Urine Nitrite Negative (Negative) Urine Bilirubin Negative (Negative) Urine Urobilinogen <2.0 (<2.0) mg/dL Ur Leukocyte Esterase Negative (Negative) Salicylates mg/dL Urine Opiates Screen Not Detected (NotDetected) Ur Oxycodone Screen Not Detected (NotDetected) Urine Methadone Screen Not Detected (NotDetected) Acetaminophen ug/mL Ur Barbiturates Screen Not Detected (NotDetected) U Tricyclic Antidepress Not Detected (NotDetected) Ur Phencyclidine Scrn Not Detected (NotDetected) Ur Amphetamines Screen Not Detected (NotDetected) U Methamphetamines Scrn Not Detected (NotDetected) U Benzodiazepines Scrn Not Detected (NotDetected) Urine Cocaine Screen Not Detected (NotDetected) U Marijuana (THC) Screen Not Detected (NotDetected) Serum Alcohol mg/dL Influenza Type A (PCR) (Not Detectd) Influenza Type B (PCR) (Not Detectd) RSV (PCR) (Not Detectd) SARS-CoV-2 (PCR) (Not Detectd) 06/11/24 06/11/24 Range/Units 05:14 05:35 WBC (3.8-10.6) k/uL RBC (3.80-5.40) m/uL Hgb (11.4-16.0) gm/dL Hct (34.0-46.0) % MCV (80.0-100.0) fL MCH (25.0-35.0) pg MCHC (31.0-37.0) g/dL RDW (11.5-15.5) % Plt Count (150-450) k/uL MPV Neutrophils % % Lymphocytes % % Monocytes % % Eosinophils % % Basophils % % Neutrophils # (1.3-7.7) k/uL Lymphocytes # (1.0-4.8) k/uL Monocytes # (0-1.0) k/uL Eosinophils # (0-0.7) k/uL Basophils # (0-0.2) k/uL PT (10.0-12.5) sec INR (<1.2) APTT (22.0-30.0) sec Sodium (137-145) mmol/L Potassium (3.5-5.1) mmol/L Chloride (98-107) mmol/L Carbon Dioxide (22-30) mmol/L Anion Gap mmol/L BUN (7-17) mg/dL Creatinine (0.52-1.04) mg/dL Est GFR (CKD-EPI)AfAm (>60 ml/min/1.73 sqM) Est GFR (CKD-EPI)NonAf (>60 ml/min/1.73 sqM) Glucose (74-99) mg/dL POC Glucose (mg/dL) (70-110) mg/dL POC Glu Photogrammetry Airplane Pilot ID Calcium (8.4-10.2) mg/dL Total Bilirubin (0.2-1.3) mg/dL AST (14-36) U/L ALT (4-34) U/L Alkaline Phosphatase (38-126) U/L Creatine Kinase (30-135) U/L Troponin I (0.000-0.034) ng/mL Total Protein (6.3-8.2) g/dL Albumin (3.5-5.0) g/dL TSH 0.017 L (0.465-4.680) mIU/L Free T4 1.54 (0.78-2.19) ng/dL Urine Color Urine Appearance (Clear) Urine pH (5.0-8.0) Ur Specific [place] (1.001-1.035) Urine Protein (Negative) Urine Glucose (UA) (Negative) Urine Ketones (Negative) Urine Blood (Negative) Urine Nitrite (Negative) Urine Bilirubin (Negative) Urine Urobilinogen (<2.0) mg/dL Ur Leukocyte Esterase (Negative) Salicylates <1.0 mg/dL Urine Opiates Screen (NotDetected) Ur Oxycodone Screen (NotDetected) Urine Methadone Screen (NotDetected) Acetaminophen <10.0 ug/mL Ur Barbiturates Screen (NotDetected) U Tricyclic Antidepress (NotDetected) Ur Phencyclidine Scrn (NotDetected) Ur Amphetamines Screen (NotDetected) U Methamphetamines Scrn (NotDetected) U Benzodiazepines Scrn (NotDetected) Urine Cocaine Screen (NotDetected) U Marijuana (THC) Screen (NotDetected) Serum Alcohol <10 mg/dL Influenza Type A (PCR) Not Detected (Not Detectd) Influenza Type B (PCR) Not Detected (Not Detectd) RSV (PCR) Not Detected (Not Detectd) SARS-CoV-2 (PCR) Not Detected (Not Detectd) Disposition Clinical Impression: Expressive aphasia, Acute encephalopathy, Leukocytosis, Pneumonia Disposition: ADMITTED IP TO THIS [facility] Condition: Serious Is patient prescribed a controlled substance at d/c from ED?: No Time of Disposition: 07:03 Decision to Admit Reason: Admit from EC Decision Date: 06/11/24 Decision Time: 07:03
--- NOTE | 2024-06-11 04:35 | CT ---
EXAM: CT Cervical Spine Without Intravenous Contrast CLINICAL HISTORY: fall, ams TECHNIQUE: Axial computed tomography images of the cervical spine without intravenous contrast. This CT exam was performed using one or more of the following dose reduction techniques: automated exposure control, adjustment of the mA and/or kV according to patient size, and/or use of iterative reconstruction technique. Coronal and sagittal reformatted images were created and reviewed. 428 images COMPARISON: CTA head and neck from 05/07/20 FINDINGS: Artifacts: Motion artifact decrease the sensitivity of this exam. Vertebrae: Osteopenia. No fracture or subluxation. Discs/spinal canal/neural foramina: Moderate degenerative disc disease. Soft tissues: Unremarkable. Sinuses: Complete opacification of left maxillary sinus. IMPRESSION: No fracture or subluxation.
[2024-06-11 04:46] LABS: Appearance,Urine Clear (Clear); Bilirubin,Urine Negative (Negative); Blood,Urine Negative (Negative); Color,Urine Colorless; Glucose,Urine (UA) 4+ (Negative); Ketones,Urine Negative (Negative); Leukocyte Esterase,Urine Negative (Negative); Nitrite,Urine Negative (Negative); Protein,Urine Negative (Negative); Specific Gravity,Urine 1.014 (1.001-1.035); Urobilinogen,Urine <2.0 mg/dL (<2.0)
--- NOTE | 2024-06-11 04:46 | CT ---
562 images EXAM: CT Angiography Head With Intravenous Contrast CLINICAL HISTORY: Neuro deficit, acute, stroke suspected TECHNIQUE: Axial computed tomographic angiography images of the head with intravenous contrast. CTDI is 11.65 mGy and DLP is 253.25 mGy-cm. This CT exam was performed using one or more of the following dose reduction techniques: automated exposure control, adjustment of the mA and/or kV according to patient size, and/or use of iterative reconstruction technique. MIP reconstructed images were created and reviewed. Coronal and sagittal reformatted images were created and reviewed. COMPARISON: FINDINGS: Right internal carotid artery: No acute findings. Intracranial segment is patent with no significant stenosis. No aneurysm. Right anterior cerebral artery: Unremarkable. No occlusion or significant stenosis. No aneurysm. Right middle cerebral artery: Unremarkable. No occlusion or significant stenosis. No aneurysm. Right posterior cerebral artery: Unremarkable. No occlusion or significant stenosis. No aneurysm. Right vertebral artery: Unremarkable as visualized. Left internal carotid artery: No acute findings. Intracranial segment is patent with no significant stenosis. No aneurysm. Left anterior cerebral artery: Unremarkable. No occlusion or significant stenosis. No aneurysm. Left middle cerebral artery: Unremarkable. No occlusion or significant stenosis. No aneurysm. Left posterior cerebral artery: Unremarkable. No occlusion or significant stenosis. No aneurysm. Left vertebral artery: Unremarkable as visualized. Basilar artery: Unremarkable. No occlusion or significant stenosis. No aneurysm. Sinuses: Complete opacification of left maxillary sinus. IMPRESSION: No acute findings in the arteries of the head/brain. EXAM: CT Angiography Neck With Intravenous Contrast CLINICAL HISTORY: ITS.REASON CT Reason: Neuro deficit, acute, stroke suspected TECHNIQUE: Routine carotid CT angiography protocol was performed with intravenous contrast. NASCET criteria using the distal ICAs for comparison were used for evaluation of stenoses. CTDI is 11.65 mGy and DLP is 253.25 mGy-cm. This CT exam was performed using one or more of the following dose reduction techniques: automated exposure control, adjustment of the mA and/or kV according to patient size, and/or use of iterative reconstruction technique. MIP reconstructed images were created and reviewed. Coronal and sagittal reformatted images were created and reviewed. COMPARISON: FINDINGS: Artifacts: Motion artifact decreases the sensitivity of this exam. VASCULATURE: Right common carotid artery: Unremarkable. No occlusion or significant stenosis. No dissection. Right internal carotid artery: Unremarkable. Extracranial segment is patent with no occlusion or significant stenosis. No dissection. Right external carotid artery: Unremarkable. No occlusion. Right vertebral artery: Unremarkable. No occlusion or significant stenosis. No dissection. Left common carotid artery: See below. Left internal carotid artery: Proximal left internal carotid/distal common carotid stent is patent. Extracranial segment is patent with no occlusion or significant stenosis. No dissection. Left external carotid artery: Moderate-severe stenosis at the takeoff of left external carotid artery, best seen on series 602 image 32. Left vertebral artery: Unremarkable. No occlusion or significant stenosis. No dissection. Brachiocephalic and subclavian arteries: Bilateral carotid, vertebral, and subclavian arteries are patent. NECK: Bones/joints: Unremarkable. No acute fracture. Soft tissues: Unremarkable. Lung apices: Clear. CAROTID STENOSIS REFERENCE USING NASCET CRITERIA: % ICA stenosis = (1 - narrowest ICA diameter/diameter of distal cervical ICA) x 100. Mild - <50% stenosis. Moderate - 50-69% stenosis. Severe - 70-94% stenosis. Near occlusion - 95-99% stenosis. Occluded - 100% stenosis. IMPRESSION: Bilateral subclavian, vertebral, common carotid, and internal carotid arteries are patent. Moderate-severe stenosis at the takeoff of left external carotid artery
--- NOTE | 2024-06-11 04:47 | CT ---
EXAM: CT Head Without Intravenous Contrast CLINICAL HISTORY: ITS.REASON CT Reason: Neuro deficit, acute, stroke suspected TECHNIQUE: Axial computed tomography images of the head/brain without intravenous contrast. CTDI is 48.9 mGy and DLP is 1181.6 mGy-cm. This CT exam was performed using one or more of the following dose reduction techniques: automated exposure control, adjustment of the mA and/or kV according to patient size, and/or use of iterative reconstruction technique. Coronal and sagittal reformatted images were created and reviewed. 280 images. COMPARISON: 07/05/20 FINDINGS: Brain: Unremarkable. No hemorrhage. No significant white matter disease. No edema. Ventricles: Unremarkable. No ventriculomegaly. Bones/joints: No acute findings. Soft tissues: Small right parietal/occipital scalp hematoma. Sinuses: Complete opacification of left maxillary sinus. Mastoid air cells: Unremarkable as visualized. No mastoid effusion. IMPRESSION: No intracranial hemorrhage or skull fracture.
[2024-06-11 05:00] LABS: Amphetamine Screen,Urine Not Detected (NotDetected); Barbiturate Screen,Urine Not Detected (NotDetected); Benzodiazepines Screen,Urine Not Detected (NotDetected); Cocaine Screen,Urine Not Detected (NotDetected); Methadone Screen, Urine Not Detected (NotDetected); Opiate Screen,Urine Not Detected (NotDetected); Oxycodone Screen, Urine Not Detected (NotDetected); Phencyclidine Screen,Urine Not Detected (NotDetected); Tricyclic Antidepressant,Urine Not Detected (NotDetected); Urn Cannabinoid Scrn Not Detected (NotDetected)
[2024-06-11] MEDS: SODIUM CHLORIDE 0.9% 1,000 ML IV SCH ×2 (05:33→22:34)
[2024-06-11] MEDS: ACETAMINOPHEN IV (For NPO) 1,000 MG in EMPTY BAG 1 BAG IVPB STA (05:36)
[2024-06-11 05:39] LABS: Acetaminophen <10.0 ug/mL; Alcohol <10 mg/dL; Salicylate <1.0 mg/dL
[2024-06-11] MEDS ORDERED: PNEUMONIA PROTOCOL UTILIZED 1 EACH MISC PO PRN (07:14)
[2024-06-11 07:22] LABS: T4, Free (Free Thyroxine) 1.54 ng/dL (0.78-2.19)
[2024-06-11] MEDS: ASPIRIN 300 MG SUPP RECTAL STA (08:23)
[2024-06-11] MEDS: IBUPROFEN IV 800 MG in SODIUM CHLORIDE 0.9% 250 ML IV ONE (08:35)
[2024-06-11] MEDS: ASPIRIN 325 MG TAB PO STA (09:04)
[2024-06-11] MEDS: ATORVASTATIN 40 MG TAB PO SCH (09:04)
[2024-06-11] MEDS: AZITHROMYCIN 500 MG in SODIUM CHLORIDE 0.9% 250 ML IVPB STA (09:16)
[2024-06-11] MEDS ORDERED: DEXTROSE 50% SYRINGE 50 ML IVP PRN ×2 (09:49)
[2024-06-11] MEDS: LORazepam 2 MG/ML INJ IV ONE (12:02)
[2024-06-11] MEDS ORDERED: VANCOMYCIN IV PER PHARMACY 1 EACH MISC MISCELLANE PRN (13:16)
[2024-06-11 14:07] LABS: Glucose,Whole Blood 78 mg/dL (70-110)
[2024-06-11] MEDS: INSULIN ASPART (NovoLOG) 100 UNIT/ML VIAL SQ SCH (14:12)
[2024-06-11] MEDS: VANCOMYCIN 1,500 MG in SODIUM CHLORIDE 0.9% 500 ML 500 ML IVPB SCH (14:38)
[2024-06-11] MEDS: ACYCLOVIR SODIUM 850 MG in SODIUM CHLORIDE 0.9% 250 ML IV SCH (14:38)
[2024-06-11] MEDS: ACYCLOVIR SODIUM 850 MG in SODIUM CHLORIDE 0.9% 250 ML IV ONE (14:45)
--- NOTE | 2024-06-11 14:46 | P.CNNES ---
History of Present Illness Consult date: 06/11/24 Requesting physician: Erika Arias Reason for Consult: expressive aphasia History of Present Illness: This is a 78-year-old woman who presented emergency department because of confusion and speech difficulty. Patient's son and his girlfriend are at bedside who provide the history. According to the son and girlfriend they stated they heard a noise around 1 AM on 06/11/2024. The patient on the floor in the living room and she had her eyes open but was unable to get her words out and was generalized weak. Did not noticed any drooling around her mouth or any blood evidence around the mouth. No jerking of the extremities they have seen. They stated they checked her room and there was a lot of vomit. She did not have any recent fever that they felt. Last normal was around 4-5 PM on 06/10/2024. She did not complain of any issues. Again the family members did not notice any focal deficit but felt she was generalized weak. Patient does not have any history of stroke to their knowledge. She does not have any history of A-fib to their knowledge. Have underlying history of diabetes, coronary artery disease status post stent, hypertension. She does not smoke. Some of the workup during this hospital visit consisted of: Tmax on presentation is 103.1F White blood cells 15,000 and it is neutrophilic. Initial serum glucose is 185 TSH is 0.017 Free T4 is 1.54 I reviewed the rest of the lab workup. Urine drug screen is nondetected Chest x-ray is reported as lung finding can be due to under infiltration versus mild pulmonary edema and less likely pneumonia. CT of the head is reported as no intracranial hemorrhage or skull fracture. I personally reviewed the CT and agree with the report. CT angiography of the head and neck is reported is bilateral subclavian and vertebral, common, carotid and internal carotid arteries are patent. Moderate severe stenosis at the takeoff of the left external carotid artery. Review of Systems Limited but positive and negative as per HPI. Past Medical History Past Medical History: COPD, Diabetes Mellitus, Eye Disorder, Hyperlipidemia, Hypertension, Osteoarthritis (OA) Additional Past Medical History / Comment(s): Skin CA, Myasthenia Gravis History of Any Multi-Drug Resistant Organisms: None Reported Past Surgical History: Section, Heart Catheterization With Stent Additional Past Surgical History / Comment(s): skin CA removal Past Anesthesia/Blood Transfusion Reactions: No Reported Reaction Date of Last Stent Placement:: 2004 Past Psychological History: No Psychological Hx Reported Smoking Status: Former smoker Past Alcohol Use History: Occasional Past Drug Use History: None Reported - Past Family History Mother Family Medical History: Cancer, Myocardial Infarction ([place]) Father Family Medical History: COPD, Rheumatoid Arthritis (RA) Medications and Allergies Home Medications Medication Instructions Recorded Confirmed Type Potassium Chloride [Klor-Con 10 ER] 10 meq PO DAILY 03/01/17 06/11/24 History glyBURIDE [Diabeta] 5 mg PO BID 03/01/17 06/11/24 History Aspirin [Adult Low Dose Aspirin EC] 81 mg PO DAILY 05/07/20 06/11/24 History Metoprolol Succinate [Toprol XL] 25 mg PO DAILY 05/07/20 06/11/24 History Pyridostigmine [Mestinon] 180 mg PO BID@0900,2100 05/07/20 06/11/24 History Rosuvastatin Calcium [Crestor] 40 mg PO HS 07/05/20 06/11/24 History Insulin Glargine,Hum.rec.anlog 65 unit SQ DAILY 03/07/24 06/11/24 History [Basaglar Kwikpen U-100] Levothyroxine Sodium [Synthroid] 125 mcg PO DAILY 03/07/24 06/11/24 History Mirabegron [Myrbetriq] 25 mg PO DAILY 03/07/24 06/11/24 History Pyridostigmine Pyatt [Mestinon] 120 mg PO DAILY@1500 03/07/24 06/11/24 History Semaglutide [Ozempic] 2 mg SQ Q7D 03/07/24 06/11/24 History Clopidogrel [Plavix] 75 mg PO DAILY 05/01/24 06/11/24 History Empagliflozin/Linagliptin 1 tab PO DAILY 05/01/24 06/11/24 History [Glyxambi 25 mg-5 mg Tablet] Latanoprost [Latanoprost 0.005%] 1 drop BOTH EYES HS 06/11/24 06/11/24 History Vyvgart 20mg/Ml Solution 1 dose IV DIRECTED 06/11/24 06/11/24 History Allergies Allergy/AdvReac Type Severity Reaction Status Date / Time metformin AdvReac Diarrhea Verified 11/06/24 09:01 Physical Examination - Vital Signs Vital Signs: Vital Signs Temp Pulse Resp BP Pulse Ox 06/11/24 12:07 99.9 F H 06/11/24 10:28 100.9 F H 107 H 16 161/78 98 06/11/24 09:23 100.9 F H 125 H 21 161/78 99 06/11/24 08:43 97.1 F L 102 H 22 147/65 96 06/11/24 07:36 122 H 98 06/11/24 07:18 102.5 F H 06/11/24 07:13 102.7 F H 115 H 22 150/90 96 06/11/24 06:20 112 H 18 147/71 96 06/11/24 06:10 109 H 18 163/65 96 06/11/24 06:00 125 H 20 155/59 97 06/11/24 05:40 115 H 19 163/62 96 06/11/24 05:30 114 H 17 174/105 96 06/11/24 05:24 103.1 F H 06/11/24 05:10 114 H 17 108/51 96 06/11/24 04:50 111 H 15 160/100 96 06/11/24 04:30 112 H 17 152/66 98 06/11/24 04:16 133 H 19 141/118 98 06/11/24 03:30 113 H 18 165/78 98 Intake and Output 06/10/24 06/11/24 06/11/24 22:59 06:59 14:59 Other: Weight 85.275 kg General: Lying in bed and appear in mild acute distress. She was touching her lower abdomen/pelvic region and was groaning in pain. HENT: Has supple neck. Neuro: Very Limited. Severely encephalopathic but is awake both voice. She stated to words yes and ok. She is not following commands or verbalizing for most past. Pupils are about 3 mm reactive to light. No appreciable facial weakness with the limitation Motor: Limited in assessment individual muscle strength was able to lift up bilateral upper extremity spontaneously and was able to bend her knees on the bed. The plantars are mute. Results - Laboratory Findings CBC and BMP: 06/11/24 03:55 06/11/24 03:55 Abnormal Lab Findings: Abnormal Labs 06/11/24 06/11/24 06/11/24 03:42 03:55 03:55 WBC 15.0 H Neutrophils # 13.5 H Chloride 111 H BUN 22 H Glucose 185 H POC Glucose (mg/dL) 231 H ALT 41 H TSH Urine Glucose (UA) 06/11/24 06/11/24 04:26 05:14 WBC Neutrophils # Chloride BUN Glucose POC Glucose (mg/dL) ALT TSH 0.017 L Urine Glucose (UA) 4+ H Assessment and Plan Assessment: This is a 78-year-old woman who presented emergency department because of she was found on the floor by her family members at 1 AM and they stated that she had difficulty talking and generalized weakness. So family members noticed that she had vomiting episode when they checked her room. On initial presentation to our ED she had a fever of 103.1 Fahrenheit and white blood soft 15K. Altered mental status seems more septic encephalopathy of unknown source. Examination patient was touching her lower abdomen pelvis region and unsure if she has underlying infection from that source. Rule out meningeal encephalitis but I feel unlikely. Patient speech difficulty does not seem like a stroke but seems more due to the septic encephalopathy Underlying history of diabetes Underlying history of coronary artery disease status post stent Underlying history of hypertension Plan: Infectious diseases on board and they placed her on acyclovir, vancomycin, ceftriaxone 2 g every 12 hours. She was started on azithromycin by the ED team. I will defer the modification of the medication to the infection disease specialist Consulted anesthesiologist for lumbar puncture and ordered CSF study In the ED the patient was given aspirin 300 mg suppository once. Off any antiplatelet since my concern is not a stroke and I feel this is more septic encephalopathy. Routine EEG and pulmonary read there is no seizure or discharges. Patient received Ativan 1 mg since the patient was agitated and restless. Ordered MRI of the brain with and without Will defer the rest of the medical management to primary and other specialist Plan discussed with the patient's son and his girlfriend who is at bedside as well as her nurse Thank for the consultation. Time with Patient: Greater than 30
[2024-06-11 17:37] LABS: Glucose,Whole Blood 82 mg/dL (70-110)
[2024-06-11 19:50] LABS: Glucose,Whole Blood 124 mg/dL (70-110)
[2024-06-11] MEDS: LATANOPROST 0.005% OPHTH DROPS 2.5 ML BTL BOTH EYES SCH (20:30)
--- NOTE | 2024-06-11 20:32 | P.HPIM ---
History of Present Illness H&P Date: 06/11/24 Chief Complaint: Altered mental status Patient is a 62-year-old male with a known history of hypertension, diabetes type 2 insulin-dependent, coronary artery disease history of stent placement, hyperlipidemia, osteoarthritis, COPD, myasthenia gravis, history of carotid surgery and prior history of smoking. Patient presented to ER with altered mental status. Patient is unable to provide any history. According to the ER patient woke up in the morning and try to ambulate from her bedroom to the front room to sit in her chair. She accidentally lost her footing and fell and hitting her head. EMS was called and patient was found to have expressive aphasia. No prior history of stroke. There is no focal weakness noted. Patient was afebrile at home and at her normal mental status yesterday. No complaints of dysuria or hematuria. According to her son patient has been coughing. No leg swelling. Tmax on admission 102.5 and tachycardic. EKG showed sinus rhythm with marked sinus arrhythmia. Chest x-ray showed lung findings can be due to underinflation versus mild pulmonary edema and less likely pneumonia. CT cervical spine showed no fracture or subluxation. CT angiogram of the head and neck showed bilateral subclavian, vertebral, common carotid, internal carotid arteries are patent. Moderate to severe stenosis at the takeoff of left external carotid artery. CT head showed no intracranial hemorrhage or skull fracture. Laboratory data showed WBC 15.0 hemoglobin 13.8 and platelets 243 sodium 139 potassium 4.4 chloride 111 bicarb is 24 BUN 2020 creatinine 0.89 blood sugar 185 and liver enzymes showed AST 32 ALT 41 alk phos 113 and CK 82 TSH 0.017 and free T4 level is 1.54 within normal limits. Urinalysis showed 4+ glucose. Leukocyte esterase negative UDS negative Influenza A B and RSV and COVID-19 PCR not detected. According to the family at bedside., Patient did have left carotid stent/procedure about a week at different hospitals recently.. Review of Systems ROS unobtainable: due to mental status Past Medical History Past Medical History: COPD, Diabetes Mellitus, Eye Disorder, Hyperlipidemia, Hypertension, Osteoarthritis (OA) Additional Past Medical History / Comment(s): Skin CA, Myasthenia Gravis History of Any Multi-Drug Resistant Organisms: None Reported Past Surgical History: Section, Heart Catheterization With Stent Additional Past Surgical History / Comment(s): skin CA removal Past Anesthesia/Blood Transfusion Reactions: No Reported Reaction Date of Last Stent Placement:: 2004 Past Psychological History: No Psychological Hx Reported Smoking Status: Former smoker Past Alcohol Use History: Occasional Past Drug Use History: None Reported - Past Family History Mother Family Medical History: Cancer, Myocardial Infarction ([place]) Father Family Medical History: COPD, Rheumatoid Arthritis ([place]) Medications and Allergies Home Medications Medication Instructions Recorded Confirmed Type Potassium Chloride [Klor-Con 10 ER] 10 meq PO DAILY 03/01/17 06/11/24 History glyBURIDE [Diabeta] 5 mg PO BID 03/01/17 06/11/24 History Aspirin [Adult Low Dose Aspirin EC] 81 mg PO DAILY 05/07/20 06/11/24 History Metoprolol Succinate [Toprol XL] 25 mg PO DAILY 05/07/20 06/11/24 History Pyridostigmine [Mestinon] 180 mg PO BID@0900,2100 05/07/20 06/11/24 History Rosuvastatin Calcium [Crestor] 40 mg PO HS 07/05/20 06/11/24 History Insulin Glargine,Hum.rec.anlog 65 unit SQ DAILY 03/07/24 06/11/24 History [Basaglar Kwikpen U-100] Levothyroxine Sodium [Synthroid] 125 mcg PO DAILY 03/07/24 06/11/24 History Mirabegron [Myrbetriq] 25 mg PO DAILY 03/07/24 06/11/24 History Pyridostigmine Fox [Mestinon] 120 mg PO DAILY@1500 03/07/24 06/11/24 History Semaglutide [Ozempic] 2 mg SQ Q7D 03/07/24 06/11/24 History Clopidogrel [Plavix] 75 mg PO DAILY 05/01/24 06/11/24 History Empagliflozin/Linagliptin 1 tab PO DAILY 05/01/24 06/11/24 History [Glyxambi 25 mg-5 mg Tablet] Latanoprost [Latanoprost 0.005%] 1 drop BOTH EYES HS 06/11/24 06/11/24 History Vyvgart 20mg/Ml Solution 1 dose IV DIRECTED 06/11/24 06/11/24 History Allergies Allergy/AdvReac Type Severity Reaction Status Date / Time metformin AdvReac Diarrhea Verified 06/11/24 09:01 Physical Exam Vitals: Vital Signs Temp Pulse Resp BP Pulse Ox 06/11/24 09:23 100.9 F H 125 H 21 161/78 99 06/11/24 08:43 97.1 F L 102 H 22 147/65 96 06/11/24 07:36 122 H 98 06/11/24 07:18 102.5 F H 06/11/24 07:13 102.7 F H 115 H 22 150/90 96 06/11/24 06:20 112 H 18 147/71 96 06/11/24 06:10 109 H 18 163/65 96 06/11/24 06:00 125 H 20 155/59 97 06/11/24 05:40 115 H 19 163/62 96 06/11/24 05:30 114 H 17 174/105 96 06/11/24 05:24 103.1 F H 06/11/24 05:10 114 H 17 108/51 96 06/11/24 04:50 111 H 15 160/100 96 06/11/24 04:30 112 H 17 152/66 98 06/11/24 04:16 133 H 19 141/118 98 06/11/24 03:30 113 H 18 165/78 98 Intake and Output 06/10/24 06/11/24 06/11/24 22:59 06:59 14:59 Other: Weight 85.275 kg PHYSICAL EXAMINATION: Patient is lying in the bed awake alert and oriented x 1. Lethargic and drowsy.. HEENT: Normocephalic. Neck is supple. Pupils reactive. Nostrils clear. Oral cavity is moist. Neck reveals no JVD, carotid bruits, or thyromegaly. CHEST EXAMINATION: Trachea is central. Symmetrical expansion. Lung lock clear to auscultation and percussion. CARDIAC: Normal S1, S2 with no gallops. No murmurs ABDOMEN: Soft. Bowel sounds normal. No organomegaly. No abdominal bruits. Extremities: reveal no edema. No clubbing or cyanosis Neurologically awake, alert, oriented x x 1 able to follow simple commands. No gross focal deficits noted Skin: No rash or skin lesions. Psychiatric: Coperative. Could not be assessed completely Musculoskeletal: No joint swelling or deformity. Results CBC & Chem 7: 06/11/24 03:55 06/11/24 03:55 Labs: Abnormal Lab Results - Last 24 Hours (Table) 06/11/24 06/11/24 06/11/24 Range/Units 03:42 03:55 03:55 WBC 15.0 H (3.8-10.6) k/uL Neutrophils # 13.5 H (1.3-7.7) k/uL Chloride 111 H (98-107) mmol/L BUN 22 H (7-17) mg/dL Glucose 185 H (74-99) mg/dL POC Glucose (mg/dL) 231 H (70-110) mg/dL ALT 41 H (4-34) U/L TSH (0.465-4.680) mIU/L Urine Glucose (UA) (Negative) 06/11/24 06/11/24 Range/Units 04:26 05:14 WBC (3.8-10.6) k/uL Neutrophils # (1.3-7.7) k/uL Chloride (98-107) mmol/L BUN (7-17) mg/dL Glucose (74-99) mg/dL POC Glucose (mg/dL) (70-110) mg/dL ALT (4-34) U/L TSH 0.017 L (0.465-4.680) mIU/L Urine Glucose (UA) 4+ H (Negative) Thrombosis Risk Factor Assmnt - DVT/VTE Prophylaxis DVT/VTE Prophylaxis: Mechanical Prophylaxis ordered Assessment and Plan Assessment: Altered mental status due to metabolic encephalopathy from infection. No acute CVA as per CT head. UA and chest x-ray negative. Rule out bacteremia versus meningitis. SIRS/sepsis. Patient was febrile, tachycardic and has leukocytosis. Primary source of infection not known. Recent left carotid atherectomy with stent placement about a week ago as per family Diabetes type 2 Hypertension Hyperlipidemia cannot tolerate COPD Myasthenia gravis patient receives monthly injections Prior history of smoking Hypothyroidism GI and DVT prophylaxis with Pepcid and SCDs. Plan: Patient will be continued on IV hydration with normal saline. Continue with broad-spectrum antibiotics to cover meningitis with vancomycin, ceftriaxone and acyclovir. Patient was given a dose of ceftriaxone azithromycin in the ER. Follow-up blood cultures. Follow-up procalcitonin level and blood cultures. ID and neurology was consulted for further evaluation. Prognosis is guarded at this time. Discussed with her family at bedside in detail. Time with Patient: Greater than 30
[2024-06-11 20:51] LABS: HSV I IgG Interp Positive (Negative); HSV II IgG Interp Negative (Negative)
[2024-06-11] MEDS: FAMOTIDINE 20 MG TAB PO SCH (22:34)
--- NOTE | 2024-06-12 03:36 | EEG ---
ELECTROENCEPHALOGRAM REPORT CLINICAL HISTORY: This is a 78-year-old woman with altered mental status. The video EEG is obtained to evaluate for seizure and epileptiform activity. RELEVANT MEDICATION: Ativan. EEG TYPE: This is a routine 21 channel EEG with video using the 10/20 electrode placement system. DESCRIPTION: Background consists of [id number] voltage of diffuse 0.5 to 1.5 hertz polymorphic nonrhythmic delta activity and rarely intermixed with theta activity. There is no physiological stage 2 sleep architecture. There is no focal slowing. There is diffuse excessive beta activity. Interictal and ictal is none. ACTIVATION PROCEDURE: Photic stimulation did not evoke a posterior driving response. There is no abnormality during the photic stimulation. Hyperventilation is not performed. CLINICAL INTERPRETATION: This is abnormal routine EEG. The background slowing is suggestive of severe encephalopathy. Otherwise, there is no focal slowing, epileptiform discharge, or seizure on the EEG. The excessive beta activity is likely due to medication effect (benzodiazepine). Clinical correlation is recommended. MMDOREEN / SILN: [id number] / JACKIE
[2024-06-12] MEDS: LEVOTHYROXINE 125 MCG TAB PO SCH (06:02)
[2024-06-12 06:12] LABS: Glucose,Whole Blood 101 mg/dL (70-110)
[2024-06-12 06:49] LABS: Basophils % (A) 0 %; Eosinophils # (A) 0.4 k/uL (0-0.7); Eosinophils % (A) 4 %; HCT 36.5 % (34.0-46.0); HGB 11.6 gm/dL (11.4-16.0); Hypochromasia Slight; Lymphocytes # (A) 1.4 k/uL (1.0-4.8); Lymphocytes % (A) 16 %; MCH 28.9 pg (25.0-35.0); MCHC 31.9 g/dL (31.0-37.0); MCV 90.6 fL (80.0-100.0); Mean Platelet Volume 7.3; Monocytes # (A) 0.7 k/uL (0-1.0); Monocytes % (A) 8 %; Neutrophils # (A) 6.1 k/uL (1.3-7.7); Neutrophils % (A) 70 %; Platelet Count 172 k/uL (150-450); RBC 4.03 m/uL (3.80-5.40); RDW 14.5 % (11.5-15.5); WBC 8.7 k/uL (3.8-10.6)
[2024-06-12 06:58] LABS: African American GFR (CKD) >90 (>60 ml/min/1.73 sqM); Anion Gap 4 mmol/L; Blood Urea Nitrogen 13 mg/dL (7-17); Calcium 8.5 mg/dL (8.4-10.2); Carbon Dioxide 22 mmol/L (22-30); Chloride 114 mmol/L (98-107); Glucose 93 mg/dL (74-99); Non-African American GFR(CKD) 83 (>60 ml/min/1.73 sqM); Potassium 3.7 mmol/L (3.5-5.1); Sodium 140 mmol/L (137-145)
--- NOTE | 2024-06-12 08:21 | XR ---
EXAMINATION TYPE: XR chest 1V portable DATE OF EXAM: 06/12/2024 6:50 AM COMPARISON: 06/11/2024 CLINICAL INDICATION: Female, 78 years old with history of pneumonia, TECHNIQUE: XR chest 1V portable view(s) obtained. FINDINGS: The heart size is normal. The pulmonary vasculature is normal. The lungs are clear. Previous scattered infiltrates resolved IMPRESSION: 1. No acute pulmonary process. [facility], , 06/12/2024 8:19 AM
--- NOTE | 2024-06-12 09:39 | P.CONS ---
History of Present Illness - Reason for Consult Consult date: 06/11/24 Fever and altered mental status Requesting physician: Raya Merchant - Chief Complaint Fall and vomiting x 1 day - History of Present Illness Patient is a 78-year-old female with a past medical history significant for hypertension hyperlipidemia COPD diabetes mellitus skin cancer and myasthenia gravis per the patient has been receiving infusion in the outpat ient setting with the last infusion day before presentation to the hospital patient has been brought into the hospital after apparently patient did have a fall at home apparently around 1 AM the patient's son was woken up by the sound of her throwing up in her bed he tried to ambulate from the bedroom to the front room to sit in her chair and apparently lost balance and did have a fall hitting her head EMS was called and patient noted to have expressive aphasia on arrival to the ER patient did have a temperature of 103.1 F and there was no evidence of any fever prior to that as most of the history was taken from the other son who apparently does not live with the patient however mention there was no concern of any fever or chills or any symptoms the patient was expressing like headache mental status changes did have 1 episode of vomiting but no clear history of any abdominal pain or diarrhea or constipation patient apparently was very restless and has received medication to relax and is currently completely out and now unable to provide any history review of the labs patient did have a white count of 15,000 with a left shift creatinine 0.89 ALT was 41 urine has been negative urine drug screen was negative influenza RSV COVID testing was negative patient did have a chest x-ray underinflation versus mild pulmonary edema and less likely pneumonia patient did get a dose of Rocephin and Zithromax in the ER did have a CT of the brain no intracranial hemorrhage or skull fracture angiographic CT no acute findings in the arteries of the head and brain cervical spine CT no fracture or subluxation infectious disease was consulted for further management most information has been obtained from the son at the bedside as the patient cannot provide any history Review of Systems Positive points has been mentioned in HPI complete review could not be obtained because of his underlying mental status Past Medical History Past Medical History: COPD, Diabetes Mellitus, Eye Disorder, Hyperlipidemia, Hypertension, Osteoarthritis (OA) Additional Past Medical History / Comment(s): Skin CA, Myasthenia Gravis History of Any Multi-Drug Resistant Organisms: None Reported Past Surgical History: Section, Heart Catheterization With Stent Additional Past Surgical History / Comment(s): skin CA removal Past Anesthesia/Blood Transfusion Reactions: No Reported Reaction Date of Last Stent Placement:: 2004 Past Psychological History: No Psychological Hx Reported Smoking Status: Former smoker Past Alcohol Use History: Occasional Past Drug Use History: None Reported - Past Family History Mother Family Medical History: Cancer, Myocardial Infarction (ND) Father Family Medical History: COPD, Rheumatoid Arthritis (RA) Medications and Allergies Home Medications Medication Instructions Recorded Confirmed Type Potassium Chloride [Klor-Con 10 ER] 10 meq PO DAILY 03/01/17 06/11/24 History glyBURIDE [Diabeta] 5 mg PO BID 03/01/17 06/11/24 History Aspirin [Adult Low Dose Aspirin EC] 81 mg PO DAILY 05/07/20 06/11/24 History Metoprolol Succinate [Toprol XL] 25 mg PO DAILY 05/07/20 06/11/24 History Pyridostigmine [Mestinon] 180 mg PO BID@0900,2100 05/07/20 06/11/24 History Rosuvastatin Calcium [Crestor] 40 mg PO HS 07/05/20 06/11/24 History Insulin Glargine,Hum.rec.anlog 65 unit SQ DAILY 03/07/24 06/11/24 History [Henrique Krishna U-100] Levothyroxine Sodium [Synthroid] 125 mcg PO DAILY 03/07/24 06/11/24 History Mirabegron [Myrbetriq] 25 mg PO DAILY 03/07/24 06/11/24 History Pyridostigmine [place] [Mestinon] 120 mg PO DAILY@1500 03/07/24 06/11/24 History Semaglutide [Ozempic] 2 mg SQ Q7D 03/07/24 06/11/24 History Clopidogrel [Plavix] 75 mg PO DAILY 05/01/24 06/11/24 History Empagliflozin/Linagliptin 1 tab PO DAILY 05/01/24 06/11/24 History [Glyxambi 25 mg-5 mg Tablet] Latanoprost [Latanoprost 0.005%] 1 drop BOTH EYES HS 06/11/24 06/11/24 History Vyvgart 20mg/Ml Solution 1 dose IV DIRECTED 06/11/24 06/11/24 History Allergies Allergy/AdvReac Type Severity Reaction Status Date / Time metformin AdvReac Diarrhea Verified 06/11/24 09:01 Physical Exam Vitals: Vital Signs Temp Pulse Resp BP Pulse Ox 06/11/24 10:28 100.9 F H 107 H 16 161/78 98 06/11/24 09:23 100.9 F H 125 H 21 161/78 99 06/11/24 08:43 97.1 F L 102 H 22 147/65 96 06/11/24 07:36 122 H 98 06/11/24 07:18 102.5 F H 06/11/24 07:13 102.7 F H 115 H 22 150/90 96 06/11/24 06:20 112 H 18 147/71 96 06/11/24 06:10 109 H 18 163/65 96 06/11/24 06:00 125 H 20 155/59 97 06/11/24 05:40 115 H 19 163/62 96 06/11/24 05:30 114 H 17 174/105 96 06/11/24 05:24 103.1 F H 06/11/24 05:10 114 H 17 108/51 96 06/11/24 04:50 111 H 15 160/100 96 06/11/24 04:30 112 H 17 152/66 98 06/11/24 04:16 133 H 19 141/118 98 06/11/24 03:30 113 H 18 165/78 98 Intake and Output 06/10/24 06/11/24 06/11/24 22:59 06:59 14:59 Other: Weight 85.275 kg GENERAL DESCRIPTION: Elderly female lying in bed, no distress. No tachypnea or accessory muscle of respiration use. HEENT: Shows Pallor , no scleral icterus. Oral mucous membrane is dry. NECK: Trachea central, no thyromegaly. LUNGS: Unlabored breathing. Decreased breath sound the base HEART: S1, S2, regular rate and rhythm. No loud murmur ABDOMEN: Soft, no tenderness , guarding or rigidity, no organomegaly EXTREMITIES: No edema of feet. SKIN: No rash, no masses palpable. NEUROLOGICAL: The patient is unresponsive orientation could not be determined did have some neck rigidity Results CBC & Chem 7: 06/12/24 05:32 06/12/24 05:32 Labs: Abnormal Lab Results - Last 24 Hours (Table) 06/11/24 06/11/24 06/11/24 Range/Units 03:42 03:55 03:55 WBC 15.0 H (3.8-10.6) k/uL Neutrophils # 13.5 H (1.3-7.7) k/uL Chloride 111 H (98-107) mmol/L BUN 22 H (7-17) mg/dL Glucose 185 H (74-99) mg/dL POC Glucose (mg/dL) 231 H (70-110) mg/dL ALT 41 H (4-34) U/L TSH (0.465-4.680) mIU/L Urine Glucose (UA) (Negative) 06/11/24 06/11/24 Range/Units 04:26 05:14 WBC (3.8-10.6) k/uL Neutrophils # (1.3-7.7) k/uL Chloride (98-107) mmol/L BUN (7-17) mg/dL Glucose (74-99) mg/dL POC Glucose (mg/dL) (70-110) mg/dL ALT (4-34) U/L TSH 0.017 L (0.465-4.680) mIU/L Urine Glucose (UA) 4+ H (Negative) Assessment and Plan (1) Sepsis Current Visit: Yes Status: Acute Code(s): A41.9 - SEPSIS, UNSPECIFIED ORGANISM SNOMED Code(s): 79867781 (2) Acute encephalopathy Current Visit: Yes Status: Acute Code(s): G93.40 - ENCEPHALOPATHY, UNSPECIFIED SNOMED Code(s): 37598598 (3) Leukocytosis Current Visit: Yes Status: Acute Code(s): D72.829 - ELEVATED WHITE BLOOD CELL COUNT, UNSPECIFIED SNOMED Code(s): 185579417 Plan: 1patient presented to hospital with sepsis in this patient who did have fever tachycardia elevated white count meeting criteria for SIRS with concern for 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 infection as the patient did have negative UA chest x-ray not suggestive of pneumonia her abdomen is soft on clinical examination no evidence of any joint swelling or cellulitis 2-patient ideally need LP however the patient is on Plavix and not be able to get the LP right away 3-we will empirically start the patient on Rocephin vancomycin and acyclovir pending workup completion Care discussed in detail with admitting physician as well as with the son at the bedside We will follow on clinical condition and cultures to further adjust medication if needed Thank you for this consultation we will follow the patient along with you Dictation was produced using [employer] dictation software. please excuse any grammatical, word or spelling errors. Time with Patient: Greater than 30
--- NOTE | 2024-06-12 11:20 | MR ---
EXAMINATION TYPE: MR brain wo/w con DATE OF EXAM: 06/12/2024 COMPARISON: CT scan of 06/11/2024 HISTORY: AMS, expressive aphasia. TECHNIQUE: Multiplanar, multisequence images of the brain and brainstem is performed without and with IV contras t, utilizing 8.5 mL intravenous Gadavist . FINDINGS: Diffusion weighted images demonstrate no evidence of a recent infarct or other diffusion ab normality. Hyperostosis of the calvarium. There is moderate generalized degenerative change. Diffuse and focal a reas of abnormal signal in the white matter most typical remote microvascular ischemia. Area of abnor mal signal involving the left occipital lobe compatible with remote ischemia. Midline structures demonstrate normal morphology. The craniocervical junction appears within normal limits. Post contrast images demonstrate no abnormal enhancement. The dural venous sinuses appear pa tent. Changes of chronic sinusitis. Orbits are symmetric. Hyperostosis of the calvarium. Punctate are as of abnormal signal involving the basal ganglia may represent prominent Virchow Taiwo spaces versus tiny remote lacunar infarct. IMPRESSION: 1. No evidence of acute ischemia. 2. Degenerative and remote ischemic changes. [facility], , 06/12/2024 11:17 AM
[2024-06-12 11:27] LABS: Glucose,Whole Blood 172 mg/dL (70-110)
[2024-06-12 11:35] LABS: Chol/HDL Ratio 4.03 Ratio; LDL Cholesterol,Calculated 86.2 mg/dL (0.0-131.0)
[2024-06-12] MEDS: IOPAMIDOL CONTRAST (ORAL USE) VIAL PO PRN (14:04)
--- NOTE | 2024-06-12 15:01 | P.PN ---
Subjective Progress Note Date: 06/12/24 I am following up with the patient and she is accompanied with her other son today. Seems that yesterday around 4 PM her mentation has drastically improved. She stated that she had a carotid stent on May 08, 2024 and ever since she has been having very minimal headache/subtle over bilateral frontal but again it is just subtle basically but in the last few days her headache is really got worse she was confused generalized weakness stumbling pushing things off on the floor. She also had nausea and vomiting. She denies of any neck pain. She denies of any recent travel. She stated that her son recently was infected and was hospitalized but refused lumbar puncture and he was back to baseline. Patient denies of any headache. She denies of any visual disturbance, she has shoulder pain but otherwise is doing better. Denies any history of seizures. Denies any history of stroke in the past. The patient she has myasthenia gravis and she gets IV infusion once a week for 4 weeks then the next session after 4 weeks would be 8 weeks and she has been getting it for couple years now without any issues. She follows with Dr. Dennis for her neurological issues. Objective - Vital Signs Vital signs: Vital Signs Temp 98.1 F 06/12/24 11:20 Pulse 91 06/12/24 11:20 Resp 18 06/12/24 11:20 BP 147/72 06/12/24 11:20 Pulse Ox 97 06/12/24 11:20 FiO2 Intake & Output 06/11/24 06/12/24 06/12/24 18:59 06:59 18:59 Intake Total 236 Output Total 350 200 Balance -350 36 Weight 85.275 kg 88.5 kg Intake: Oral 236 Output: Urine 350 200 Other: Voiding Method External Catheter External Catheter # Voids 2 - Exam General: Sitting up in bed and is not in acute distress. Neuro: Patient is awake alert oriented to self place and time. Is following simple commands. No aphasia no neglect. Pupils are round equal reactive to light. Visual lock is full to confrontation. Extraocular movements intact no nystagmus. No facial weakness. No dysarthria Motor strength is limited in the right upper extremity because of pain but otherwise is lifting all extremities above gravity equally Some of the workup during this hospital visit consisted of: Tmax on presentation is 103.1F--resolved White blood cells 15,000 and it is neutrophilic---resolved. Initial serum glucose is 185 TSH is 0.017 Free T4 is 1.54 I reviewed the rest of the lab workup. Urine drug screen is nondetected HSV I IGG is positive. Chest x-ray is reported as lung finding can be due to under infiltration versus mild pulmonary edema and less likely pneumonia. CT of the head is reported as no intracranial hemorrhage or skull fracture. I personally reviewed the CT and agree with the report. CT angiography of the head and neck is reported is bilateral subclavian and vertebral, common, carotid and internal carotid arteries are patent. Moderate severe stenosis at the takeoff of the left external carotid artery. Routine EEG: Is abnormal. The background slowing is suggestive of severe encephalopathy. But no focal slowing, epileptiform discharges or seizure on the EEG. MRI Brain: No evidence of acute ischemia. Degenerative and remote ischemic change. - Labs CBC & Chem 7: 06/12/24 05:32 06/12/24 05:32 Labs: Abnormal Lab Results - Last 24 Hours (Table) 06/11/24 06/11/24 06/12/24 Range/Units 10:12 19:49 05:32 Chloride (98-107) mmol/L POC Glucose (mg/dL) 124 H (70-110) mg/dL Hemoglobin A1c 6.8 H (<=6.0) % HDL Cholesterol (40.00-60.00) mg/dL HSV I IgG Interpret Positive A (Negative) 06/12/24 06/12/24 Range/Units 05:32 11:26 Chloride 114 H (98-107) mmol/L POC Glucose (mg/dL) 172 H (70-110) mg/dL Hemoglobin A1c (<=6.0) % HDL Cholesterol 36.00 L (40.00-60.00) mg/dL HSV I IgG Interpret (Negative) Microbiology - Last 24 Hours (Table) 06/11/24 05:30 Blood Culture Gram Stain - Preliminary Blood Blood Culture - Preliminary Molecular ID Assessment and Plan Assessment: This is a 78-year-old woman who presented emergency department because of she was found on the floor by her family members at 1 AM and they stated that she had difficulty talking and generalized weakness. So family members noticed that she had vomiting episode when they checked her room. On initial presentation to our ED she had a fever of 103.1 Fahrenheit and white blood soft 15K. Altered mental status seems more septic encephalopathy of unknown source. Blood culture is molecular ID and unsure if due to her recent IV infusion as outpatient for Myasthenia Gravis. Rule out meningeal encephalitis since stated her son was sick recently but he refused Lumbar Puncture but I feel unlikely and especially since she is drastically improved with one dose of treatment---. mentation has improved Patient speech difficulty is due to above and not stroke. MRI Brain is unremarkable for stroke. History of Myasthenia Gravis and is on IV Infusion. Underlying history of diabetes Underlying history of coronary artery disease status post stent Underlying history of hypertension Plan: Infectious diseases on board and they placed her on acyclovir, vancomycin, ceftriaxone 2 g every 12 hours. She was started on azithromycin by the ED team. I will defer the modification of the medication to the infection disease specialist Consulted anesthesiologist for lumbar puncture and ordered CSF study. Cannot have Lumbar puncture since was on Plavix and needs to be off for 5 days. Will defer the rest of the medical management to primary and other specialist Plan discussed with the patient and her son who is at bedside. Time with Patient: Less than 30
--- NOTE | 2024-06-12 15:53 | P.PN ---
Subjective Progress Note Date: 06/12/24 Principal diagnosis: Reason for follow-up is fever Patient is a 78-year-old female with a past medical history significant for hypertension hyperlipidemia COPD diabetes mellitus skin cancer and myasthenia gravis patient was brought into the hospital after pending the p atient had an episode of vomiting subsequently mental status changes and a fever. On today's evaluation that is 06/12/2024, the patient did have resolution of her fever and is afebrile this morning patient is more awake and alert up in the chair mild headache no further nausea no vomiting abdominal pain or diarrhea. Patient white count has normalized to 8.7, creatinine 0.69 blood culture positive for staph epi Objective - Vital Signs Vital signs: Vital Signs Temp 98 F 06/12/24 07:13 Pulse 85 06/12/24 07:13 Resp 18 06/12/24 07:13 BP 126/59 06/12/24 07:13 Pulse Ox 97 06/12/24 07:13 FiO2 Intake & Output 06/11/24 06/12/24 06/12/24 18:59 06:59 18:59 Intake Total 118 Output Total 350 Balance -350 118 Weight 85.275 kg 88.5 kg Intake: Oral 118 Output: Urine 350 Other: Voiding Method External Catheter # Voids 2 - Exam GENERAL DESCRIPTION: Elderly female up in the chair in no distress RESPIRATORY SYSTEM: Unlabored breathing , decreased breath sounds at bases HEART: S1 S2 regular rate and rhythm , ABDOMEN: Soft , no tenderness EXTREMITIES: No edema feet - Labs CBC & Chem 7: 06/12/24 05:32 06/12/24 05:32 Labs: Abnormal Lab Results - Last 24 Hours (Table) 06/11/24 06/11/24 06/12/24 Range/Units 10:12 19:49 05:32 Chloride 114 H (98-107) mmol/L POC Glucose (mg/dL) 124 H (70-110) mg/dL HSV I IgG Interpret Positive A (Negative) Microbiology - Last 24 Hours (Table) 06/11/24 05:30 Blood Culture Gram Stain - Preliminary Blood Blood Culture - Preliminary Molecular ID Assessment and Plan (1) Sepsis Current Visit: Yes Status: Acute Code(s): A41.9 - SEPSIS, UNSPECIFIED ORGANISM SNOMED Code(s): 65031915 (2) Acute encephalopathy Current Visit: Yes Status: Acute Code(s): G93.40 - ENCEPHALOPATHY, UNSPECIFIED SNOMED Code(s): 37246147 (3) Leukocytosis Current Visit: Yes Status: Acute Code(s): D72.829 - ELEVATED WHITE BLOOD CELL COUNT, UNSPECIFIED SNOMED Code(s): 106254640 (4) Bacteremia Current Visit: Yes Status: Acute Code(s): R78.81 - BACTEREMIA SNOMED Code(s): 9742691 Plan: 1patient presented to hospital with sepsis in this patient who did have fever tachycardia elevated white count meeting criteria for SIRS with 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 as the patient did have negative UA chest x-ray not suggestive of pneumonia her abdomen is soft on clinical examination no evidence of any joint swelling or cellulitis 2-patient did have significant improvement in less than 24 hours we will make encephalitis meningitis to be less likely we will order CT abdominal pelvis to rule out any abdominal pathology 3positive blood culture with staph epi questionable skin contamination versus true pathogen blood culture has been repeated continue with vancomycin Son at the bedside question answered Dictation was produced using [employer] dictation software. please excuse any grammatical, word or spelling errors. Time with Patient: Less than 30
--- NOTE | 2024-06-12 16:23 | CT ---
EXAMINATION TYPE: CT abdomen pelvis w con DATE OF EXAM: 06/12/2024 3:49 PM COMPARISON: None. CLINICAL INDICATION: Female, 78 years old with history of Vomiting and fever, fever and vomiting TECHNIQUE: Axial images were obtained from above the diaphragm to the pubic rami in the axial plane a t 5 mm thick sections. Reconstructed images are reviewed on the computer in the coronal plane. CONTRAST: 100 mL of Isovue 300. Study performed with Oral Contrast DLP: 1374.8 mGycm, Automated exposure control for dose reduction was used. FINDINGS: Limited CT sections are obtained the lung bases. The lung bases are clear. CT ABDOMEN: Liver: Normal Spleen: Normal Pancreas: Normal Adrenal glands: The adrenal glands are normal. Gallbladder: Cholelithiasis. Kidneys: No masses are evident. No hydronephrosis is present. There is a 3.8 cm superior pole right renal cyst.There is a superior posterior right renal cortical cyst measuring 2.3 cm. There is mild left hydroureter extending to the ureterovesical junction. No obstructing etiology is identified on t his study. Some mild prominence of left ureter is also present. Aorta: Vascular calcification is within the aorta. Inferior vena cava: Normal. CT PELVIS: Loops of bowel within the abdomen and pelvis are normal. There are loops of bowel which are incom pletely distended or lack oral contrast limiting their evaluation. No suspicious dilated loops of bow el are evident. Oral contrast extensively distal jejunum. Appendix: Normal as visualized. Urinary bladder: Normal. Genitourinary structures: Osseous structures: No suspicious lytic or sclerotic lesions. Degenerative disc changes are within th e lumbar spine. There is a superior endplate compression deformity at T12. No posterior wall displace ment is evident IMPRESSION: 1. Mild hydroureters extending to the urinary bladder slightly greater on the left. Obstructing etio logy however is not identified. 2. Bilateral renal cysts. 3. Cholelithiasis. 2. No suspicious bowel abnormality identified. [facility], , 06/12/2024 4:21 PM
[2024-06-12 16:28] LABS: Glucose,Whole Blood 203 mg/dL (70-110)
[2024-06-12 19:50] LABS: Glucose,Whole Blood 186 mg/dL (70-110)
[2024-06-12] MEDS: ACETAMINOPHEN TAB 325 MG TAB PO PRN (20:58)
[2024-06-13 06:13] LABS: Glucose,Whole Blood 224 mg/dL (70-110)
[2024-06-13 07:49] LABS: Basophils % (A) 0 %; Eosinophils # (A) 0.4 k/uL (0-0.7); Eosinophils % (A) 6 %; HCT 37.1 % (34.0-46.0); HGB 11.8 gm/dL (11.4-16.0); Lymphocytes # (A) 1.1 k/uL (1.0-4.8); Lymphocytes % (A) 16 %; MCH 28.4 pg (25.0-35.0); MCHC 31.7 g/dL (31.0-37.0); MCV 89.6 fL (80.0-100.0); Mean Platelet Volume 7.6; Monocytes # (A) 0.4 k/uL (0-1.0); Monocytes % (A) 6 %; Neutrophils # (A) 4.7 k/uL (1.3-7.7); Neutrophils % (A) 70 %; Platelet Count 155 k/uL (150-450); RBC 4.15 m/uL (3.80-5.40); RDW 14.4 % (11.5-15.5); WBC 6.7 k/uL (3.8-10.6)
[2024-06-13 08:16] LABS: African American GFR (CKD) 78 (>60 ml/min/1.73 sqM); Anion Gap 3 mmol/L; Blood Urea Nitrogen 13 mg/dL (7-17); Calcium 8.6 mg/dL (8.4-10.2); Carbon Dioxide 24 mmol/L (22-30); Chloride 112 mmol/L (98-107); Glucose 206 mg/dL (74-99); Non-African American GFR(CKD) 68 (>60 ml/min/1.73 sqM); Potassium 3.8 mmol/L (3.5-5.1); Sodium 139 mmol/L (137-145)
[2024-06-13 11:30] LABS: Glucose,Whole Blood 230 mg/dL (70-110)
--- NOTE | 2024-06-13 11:58 | CA ---
Transthoracic Echo Report Name: Erica Camarillo Age: 78 Gender: F : 1945 Exam Date: 06/13/2024 10:35 Exam Location: [place] [facility] Ht (in): 66 Wt (lb): 198 Ordering Physician: Ny Villalba MD Attending/Referring Phys: Residential Assistant Adelaide Zuluaga RDCS Procedure CPT: Indications: bacteremia Cardiac Hx: Technical Quality: Good Contrast 1: Total Dose (mL): Contrast 2: Total Dose (mL): MEASUREMENTS (Male / Female) Normal Values 2D ECHO LV Diastolic Diameter PLAX 5.0 cm 4.2 - 5.9 / 3.9 - 5.3 cm LV Systolic Diameter PLAX 2.9 cm IVS Diastolic Thickness 1.1 cm 0.6 - 1.0 / 0.6 - 0.9 cm LVPW Diastolic Thickness 1.2 cm 0.6 - 1.0 / 0.6 - 0.9 cm LV Relative Wall Thickness 0.5 RV Internal Dim ED PLAX 3.2 cm LA Systolic Diameter LX 3.8 cm 3.0 - 4.0 / 2.7 - 3.8 cm LV Diastolic Volume MOD 4C 79.4 cm??? LV Systolic Volume MOD 4C 38.5 cm??? LV Ejection Fraction MOD 4C 51.5 % LV Cardiac Index MOD 4C 1754.1 cm???/min???m??? LV Diastolic Length 4C 8.0 cm LV Systolic Length 4C 7.0 cm LV Diastolic Volume MOD 2C 64.1 cm??? LV Systolic Volume MOD 2C 33.0 cm??? LV Ejection Fraction MOD 2C 48.5 % LV Cardiac Index MOD 2C 1332.6 cm???/min???m??? LV Diastolic Length 2C 7.2 cm LV Systolic Length 2C 6.5 cm M-MODE Aortic Root Diameter MM 3.4 cm AV Cusp Separation MM 2.2 cm DOPPLER AV Peak Velocity 129.3 cm/s AV Peak Gradient 6.7 mmHg Mitral E Point Velocity 98.2 cm/s Mitral A Point Velocity 134.4 cm/s Mitral E to A Ratio 0.7 MV Deceleration Time 224.7 ms MV E' Velocity 6.2 cm/s Mitral E to MV E' Ratio 16.0 FINDINGS Left Ventricle Left ventricular ejection fraction is estimated at 55-60 %. Left ventricular cavity size normal. Mildly increased septal wall thickness. Mildly increased posterior wall thickness. Right Ventricle Normal right ventricular size and function. Unable to estimate the right ventricular systolic pressure. Right Atrium Normal right atrial size. No right atrial thrombus or mass seen. Left Atrium Normal left atrial size. No left atrial thrombus or mass present. Mitral Valve Structurally normal mitral valve. No evidence for mitral valve prolapse. No mitral stenosis. Trace mitral regurgitation. Aortic Valve Trileaflet aortic valve. Aortic valve sclerosis. No aortic valve stenosis or regurgitation. Tricuspid Valve Structurally normal tricuspid valve. No tricuspid stenosis, regurgitation or prolapse. Pulmonic Valve Structurally normal pulmonic valve. Trace pulmonic regurgitation. Pericardium No pericardial or pleural effusion. Aorta Normal size aortic root and proximal ascending aorta. CONCLUSIONS Normal LV function Consider transesophageal echo if clinically indicated to rule out a vegetation Previewed by: Dr. Ronen Aguero MD (Electronically Signed) Final Date: 13 June 2024 11:57
--- NOTE | 2024-06-13 13:03 | P.PN ---
Subjective Progress Note Date: 06/13/24 Principal diagnosis: Reason for follow-up is fever Patient is a 78-year-old female with a past medical history significant for hypertension hyperlipidemia COPD diabetes mellitus skin cancer and myasthenia gravis patient was brought into the hospital after pending the p atient had an episode of vomiting subsequently mental status changes and a fever. On today's evaluation that is 06/13/2024, Patient is afebrile patient is currently on room air and denies having any shortness of breath, the patient denies any chest pain or cough, the patient denies any nausea vomiting did not have any abdominal pain and no diarrhea, mention feeling better. Patient white count 6.7, creatinine 0.83 blood culture repeat pending Objective - Vital Signs Vital signs: Vital Signs Temp 97.7 F 06/13/24 07:20 Pulse 97 06/13/24 08:07 Resp 18 06/13/24 07:20 BP 141/81 06/13/24 07:20 Pulse Ox 94 L 06/13/24 08:19 FiO2 Intake & Output 06/12/24 06/13/24 06/13/24 18:59 06:59 18:59 Intake Total 354 1450 118 Output Total 200 800 Balance 154 650 118 Weight 90.2 kg Intake: Intake, IV Titration 1450 Amount Acyclovir Sodium 850 mg 500 In Sodium Chloride 0.9% 250 ml @ 100 mls/hr IV Q8H [facility] Rx#:[id number] Sodium Chloride 0.9% 1, 400 000 ml @ 100 mls/hr IV . Q10H [facility] Rx#:[id number] Vancomycin 1,500 mg In 500 Sodium Chloride 0.9% 500 ml 500 ml @ 167 mls/hr IVPB Q16H [facility] Rx#: [id number] cefTRIAXone 2 gm In 50 Sodium Chloride 0.9% 50 ml @ 100 mls/hr IVPB Q12HR [facility] Rx#:[id number] Oral 354 118 Output: Urine 200 800 Other: Voiding Method External Catheter # Voids 3 1 - Exam GENERAL DESCRIPTION: Elderly female up in the chair in no distress RESPIRATORY SYSTEM: Unlabored breathing , decreased breath sounds at bases HEART: S1 S2 regular rate and rhythm , ABDOMEN: Soft , no tenderness EXTREMITIES: No edema feet - Labs CBC & Chem 7: 06/13/24 06:59 06/13/24 06:59 Labs: Abnormal Lab Results - Last 24 Hours (Table) 06/12/24 06/12/24 06/12/24 Range/Units 05:32 05:32 11:26 Chloride (98-107) mmol/L Glucose (74-99) mg/dL POC Glucose (mg/dL) 172 H (70-110) mg/dL Hemoglobin A1c 6.8 H (<=6.0) % HDL Cholesterol 36.00 L (40.00-60.00) mg/dL 06/12/24 06/12/24 06/13/24 Range/Units 16:27 19:49 06:08 Chloride (98-107) mmol/L Glucose (74-99) mg/dL POC Glucose (mg/dL) 203 H 186 H 224 H (70-110) mg/dL Hemoglobin A1c (<=6.0) % HDL Cholesterol (40.00-60.00) mg/dL 06/13/24 Range/Units 06:59 Chloride 112 H (98-107) mmol/L Glucose 206 H (74-99) mg/dL POC Glucose (mg/dL) (70-110) mg/dL Hemoglobin A1c (<=6.0) % HDL Cholesterol (40.00-60.00) mg/dL Microbiology - Last 24 Hours (Table) 06/11/24 05:30 Blood Culture Gram Stain - Final Blood Blood Culture - Final Coagulase Negative Staph Streptococcus viridans group Molecular ID Assessment and Plan (1) Sepsis Current Visit: Yes Status: Acute Code(s): A41.9 - SEPSIS, UNSPECIFIED ORGANISM SNOMED Code(s): 49295244 (2) Acute encephalopathy Current Visit: Yes Status: Acute Code(s): G93.40 - ENCEPHALOPATHY, UNSPECIFIED SNOMED Code(s): 02418467 (3) Leukocytosis Current Visit: Yes Status: Acute Code(s): D72.829 - ELEVATED WHITE BLOOD CELL COUNT, UNSPECIFIED SNOMED Code(s): 124459782 (4) Bacteremia Current Visit: Yes Status: Acute Code(s): R78.81 - BACTEREMIA SNOMED Code(s): 9383233 Plan: 1patient presented to hospital with sepsis in this patient who did have fever tachycardia elevated white count meeting criteria for SIRS with concern for possible BARLEY STEEPER infection as the patient did have negative UA chest x-ray not suggestive of pneumonia her abdomen is soft on clinical examination no evidence of any joint swelling or cellulitis 2-patient did have significant improvement in less than 24 hours , that will make encephalitis meningitis to be less likely, patient did have CT abdominal pelvis did not show any intra abdominal pathology 3positive blood culture with staph epi and is also growing strep viridans questionable endovascular source we will check an echocardiogram continue with vancomycin discontinue Rocephin and acyclovir Dictation was produced using [employer] dictation software. please excuse any grammatical, word or spelling errors. Time with Patient: Less than 30
[2024-06-13 16:22] LABS: Glucose,Whole Blood 238 mg/dL (70-110)
--- NOTE | 2024-06-13 19:43 | P.PN ---
Subjective Progress Note Date: 06/13/24 I am following-up with patient and she continues to be feeling well. No further fevers. Objective - Vital Signs Vital signs: Vital Signs Temp 98.3 F 06/13/24 16:27 Pulse 72 06/13/24 16:27 Resp 14 06/13/24 16:27 BP 156/76 06/13/24 16:27 Pulse Ox 98 06/13/24 16:27 FiO2 Intake & Output 06/13/24 06/13/24 06/14/24 06:59 18:59 06:59 Intake Total 1450 476 Output Total 800 500 Balance 650 -24 Weight 90.2 kg Intake: Intake, IV Titration 1450 Amount Acyclovir Sodium 850 mg 500 In Sodium Chloride 0.9% 250 ml @ 100 mls/hr IV Q8H [facility] Rx#:[id number] Sodium Chloride 0.9% 1, 400 000 ml @ 100 mls/hr IV . Q10H [facility] Rx#:[id number] Vancomycin 1,500 mg In 500 Sodium Chloride 0.9% 500 ml 500 ml @ 167 mls/hr IVPB Q16H [facility] Rx#: [id number] cefTRIAXone 2 gm In 50 Sodium Chloride 0.9% 50 ml @ 100 mls/hr IVPB Q12HR [facility] Rx#:[id number] Oral 476 Output: Urine 800 500 Other: Voiding Method Toilet # Voids 1 - Exam General: Sitting up in bed and is not in acute distress. Neuro: Patient is awake alert oriented to self place and time. Is following simple commands. No aphasia no neglect. Pupils are round equal reactive to light. Visual lock is full to confrontation. Extraocular movements intact no nystagmus. No facial weakness. No dysarthria Motor strength is limited in the right upper extremity because of pain but otherwise is lifting all extremities above gravity equally Some of the workup during this hospital visit consisted of: Tmax on presentation is 103.1F--resolved White blood cells 15,000 and it is neutrophilic---resolved. Initial serum glucose is 185 TSH is 0.017 Free T4 is 1.54 I reviewed the rest of the lab workup. Urine drug screen is nondetected HSV I IGG is positive. Chest x-ray is reported as lung finding can be due to under infiltration versus mild pulmonary edema and less likely pneumonia. CT of the head is reported as no intracranial hemorrhage or skull fracture. I personally reviewed the CT and agree with the report. CT angiography of the head and neck is reported is bilateral subclavian and vertebral, common, carotid and internal carotid arteries are patent. Moderate severe stenosis at the takeoff of the left external carotid artery. Routine EEG: Is abnormal. The background slowing is suggestive of severe encephalopathy. But no focal slowing, epileptiform discharges or seizure on the EEG. MRI Brain: No evidence of acute ischemia. Degenerative and remote ischemic change. Blood culture: Coag neg staph, Streph viridans group, 2D echo: Normal LV fxn. - Labs CBC & Chem 7: 06/13/24 06:59 06/13/24 06:59 Labs: Abnormal Lab Results - Last 24 Hours (Table) 06/12/24 06/13/24 06/13/24 Range/Units 19:49 06:08 06:59 Chloride 112 H (98-107) mmol/L Glucose 206 H (74-99) mg/dL POC Glucose (mg/dL) 186 H 224 H (70-110) mg/dL 06/13/24 06/13/24 Range/Units 11:29 16:20 Chloride (98-107) mmol/L Glucose (74-99) mg/dL POC Glucose (mg/dL) 230 H 238 H (70-110) mg/dL Microbiology - Last 24 Hours (Table) 06/11/24 05:30 Blood Culture Gram Stain - Final Blood Blood Culture - Final Coagulase Negative Staph Streptococcus viridans group Molecular ID Assessment and Plan Assessment: This is a 78-year-old woman who presented emergency department because of she was found on the floor by her family members at 1 AM and they stated that she had difficulty talking and generalized weakness. So family members noticed that she had vomiting episode when they checked her room. On initial presentation to our ED she had a fever of 103.1 Fahrenheit and white blood soft 15K. Altered mental status seems more septic encephalopathy of unknown source. Blood cultures positive Coag neg staph, Streph viridans group and unsure if from her recent IV infusion from Myasthenia Gravis vs other cause. Does not appear meningoencephalitis since drastic improvement--mentation improved Patient speech difficulty is due to above and not stroke. MRI Brain is unremarkable for stroke. History of Myasthenia Gravis and is on IV Infusion. Underlying history of diabetes Underlying history of coronary artery disease status post stent Underlying history of hypertension Plan: Infectious diseases on board and they discontinued acyclovir and ceftriaxone. Is onvancomycin. Recommend Transesophageal echocardiogram. Consulted anesthesiologist for lumbar puncture and ordered CSF study. Cannot have Lumbar puncture since was on Plavix and needs to be off for 5 days. Will hold off pursuing LP and see what [facility] shows. Will defer the rest of the medical management to primary and other specialist Plan discussed with the patient. Time with Patient: Less than 30
[2024-06-13 20:39] LABS: Glucose,Whole Blood 244 mg/dL (70-110)
--- NOTE | 2024-06-14 03:15 | P.PN ---
Subjective Progress Note Date: 06/12/24 Patient is a 62-year-old male with a known history of hypertension, diabetes type 2 insulin-dependent, coronary artery disease history of stent placement, hyperlipidemia, osteoarthritis, COPD, myasthenia gravis, history of carotid surgery and prior history of smoking. Patient presented to ER with altered mental status. Patient is unable to provide any history. According to the ER patient woke up in the morning and try to ambulate from her bedroom to the front room to sit in her chair. She accidentally lost her footing and fell and hitting her head. EMS was called and patient was found to have expressive aphasia. No prior history of stroke. There is no focal weakness noted. Patient was afebrile at home and at her normal mental status yesterday. No complaints of dysuria or hematuria. Acco rding to her son patient has been coughing. No leg swelling. Tmax on admission 102.5 and tachycardic. EKG showed sinus rhythm with marked sinus arrhythmia. Chest x-ray showed lung findings can be due to underinflation versus mild pulmonary edema and less likely pneumonia. CT cervical spine showed no fracture or subluxation. CT angiogram of the head and neck showed bilateral subclavian, vertebral, common carotid, internal carotid arteries are patent. Moderate to severe stenosis at the takeoff of left external carotid artery. CT head showed no intracranial hemorrhage or skull fracture. Laboratory data showed WBC 15.0 hemoglobin 13.8 and platelets 243 sodium 139 potassium 4.4 chloride 111 bicarb is 24 BUN 2020 creatinine 0.89 blood sugar 185 and liver enzymes showed AST 32 ALT 41 alk phos 113 and CK 82 TSH 0.017 and free T4 level is 1.54 within normal limits. Urinalysis showed 4+ glucose. Leukocyte esterase negative UDS negative Influenza A B and RSV and COVID-19 PCR not detected. According to the family at bedside., Patient did have left carotid stent/procedure about a week at different hospitals recently.. 06/12/2024 Patient did improve clinically today. Awake alert and oriented x 3 and mentation is at baseline. No complaints of chest pain or shortness of breath. No cough or sputum production. Patient has been afebrile. No neck stiffness or headache. Blood culture showed coagulase-negative Staph aureus. Patient is also maintained on antibiotics for possible meningitis. LP may not be needed. ID and neurology is on board. Repeat blood cultures were ordered. Laboratory data showed WBC 8.7 hemoglobin 11.6 and platelets 172 sodium 140 potassium 3.7 chloride 114 bicarb is 22 BUN 13 and creatinine 0.6 and blood sugar is 93 A1c 6.8. Procalcitonin level is less than 0.05 Current medications reviewed. Objective - Vital Signs Vital signs: Vital Signs Temp 98 F 06/12/24 07:13 Pulse 85 06/12/24 07:13 Resp 18 06/12/24 07:13 BP 126/59 06/12/24 07:13 Pulse Ox 97 06/12/24 07:13 FiO2 Intake & Output 06/11/24 06/12/24 06/12/24 18:59 06:59 18:59 Intake Total 118 Output Total 350 200 Balance -350 -82 Weight 85.275 kg 88.5 kg Intake: Oral 118 Output: Urine 350 200 Other: Voiding Method External Catheter # Voids 2 - Exam PHYSICAL EXAMINATION: Patient is lying in the bed comfortably, no acute distress, awake alert and oriented.. HEENT: Normocephalic. Neck is supple. Pupils reactive. Nostrils clear. Oral cavity is moist. Neck reveals no JVD, carotid bruits, or thyromegaly. CHEST EXAMINATION: Trachea is central. Symmetrical expansion. Lung lock clear to auscultation and percussion. CARDIAC: Normal S1, S2 with no gallops. No murmurs ABDOMEN: Soft. Bowel sounds normal. No organomegaly. No abdominal bruits. Extremities: reveal no edema. No clubbing or cyanosis Neurologically awake, alert, oriented x3 with well-coordinated movements. No focal deficits noted Skin: No rash or skin lesions. Psychiatric: Coperative. Nonsuicidal Musculoskeletal: No joint swelling or deformity. Normal range of motion. - Labs CBC & Chem 7: 06/13/24 06:59 06/13/24 06:59 Labs: Abnormal Lab Results - Last 24 Hours (Table) 06/11/24 06/11/24 06/12/24 Range/Units 10:12 19:49 05:32 Chloride (98-107) mmol/L POC Glucose (mg/dL) 124 H (70-110) mg/dL Hemoglobin A1c 6.8 H (<=6.0) % HSV I IgG Interpret Positive A (Negative) 06/12/24 Range/Units 05:32 Chloride 114 H (98-107) mmol/L POC Glucose (mg/dL) (70-110) mg/dL Hemoglobin A1c (<=6.0) % HSV I IgG Interpret (Negative) Microbiology - Last 24 Hours (Table) 06/11/24 05:30 Blood Culture Gram Stain - Preliminary Blood Blood Culture - Preliminary Molecular ID Assessment and Plan Assessment: Altered mental status due to metabolic encephalopathy from infection. No acute CVA as per CT head. UA and chest x-ray negative. Rule out bacteremia versus meningitis. Mentation is back to baseline today. SIRS/sepsis. Patient was febrile, tachycardic and has leukocytosis. Primary source of infection not known. Recent left carotid atherectomy with stent placement about a week ago. Diabetes type 2 Hypertension Hyperlipidemia cannot tolerate COPD Myasthenia gravis patient receives monthly injections Prior history of smoking Hypothyroidism GI and DVT prophylaxis with Pepcid and SCDs. Plan: Patient will be continued on IV hydration with normal saline. Continue with broad-spectrum antibiotics to cover meningitis with vancomycin, ceftriaxone and acyclovir. Patient was given a dose of ceftriaxone azithromycin in the ER. Follow-up final blood cultures. Repeat blood culture ordered. Procalcitonin level is not elevated. ID and neurology is on board. Will defer LP at this time since her mentation improved overnight. Continue to follow closely. Time with Patient: Greater than 30
--- NOTE | 2024-06-14 03:18 | P.PN ---
Subjective Progress Note Date: 06/13/24 Patient is a 62-year-old male with a known history of hypertension, diabetes type 2 insulin-dependent, coronary artery disease history of stent placement, hyperlipidemia, osteoarthritis, COPD, myasthenia gravis, history of carotid surgery and prior history of smoking. Patient presented to ER with altered mental status. Patient is unable to provide any history. According to the ER patient woke up in the morning and try to ambulate from her bedroom to the front room to sit in her chair. She accidentally lost her footing and fell and hitting her head. EMS was called and patient was found to have expressive aphasia. No prior history of stroke. There is no focal weakness noted. Patient was afebrile at home and at her normal mental status yesterday. No complaints of dysuria or hematuria. Acco rding to her son patient has been coughing. No leg swelling. Tmax on admission 102.5 and tachycardic. EKG showed sinus rhythm with marked sinus arrhythmia. Chest x-ray showed lung findings can be due to underinflation versus mild pulmonary edema and less likely pneumonia. CT cervical spine showed no fracture or subluxation. CT angiogram of the head and neck showed bilateral subclavian, vertebral, common carotid, internal carotid arteries are patent. Moderate to severe stenosis at the takeoff of left external carotid artery. CT head showed no intracranial hemorrhage or skull fracture. Laboratory data showed WBC 15.0 hemoglobin 13.8 and platelets 243 sodium 139 potassium 4.4 chloride 111 bicarb is 24 BUN 2020 creatinine 0.89 blood sugar 185 and liver enzymes showed AST 32 ALT 41 alk phos 113 and CK 82 TSH 0.017 and free T4 level is 1.54 within normal limits. Urinalysis showed 4+ glucose. Leukocyte esterase negative UDS negative Influenza A B and RSV and COVID-19 PCR not detected. According to the family at bedside., Patient did have left carotid stent/procedure about a week at different hospitals recently.. 06/12/2024 Patient did improve clinically today. Awake alert and oriented x 3 and mentation is at baseline. No complaints of chest pain or shortness of breath. No cough or sputum production. Patient has been afebrile. No neck stiffness or headache. Blood culture showed coagulase-negative Staph aureus. Patient is also maintained on antibiotics for possible meningitis. LP may not be needed. ID and neurology is on board. Repeat blood cultures were ordered. Laboratory data showed WBC 8.7 hemoglobin 11.6 and platelets 172 sodium 140 potassium 3.7 chloride 114 bicarb is 22 BUN 13 and creatinine 0.6 and blood sugar is 93 A1c 6.8. Procalcitonin level is less than 0.05 06/13/2024 Patient is resting in the bed. Awake alert and oriented x 3. No complaints of chest pain or shortness of breath. No headache or dizziness or lightheadedness. Patient has been afebrile. Tolerating oral diet. No nausea vomiting or diarrhea. Repeat blood cultures preliminary negative so far. Initial blood cultures showed coagulase-negative staph, Streptococcus viridans group. Patient is on vancomycin IV. Ceftriaxone has been discontinued. ID and neurology is on board. Current medications reviewed. Objective - Vital Signs Vital signs: Vital Signs Temp 98.3 F 06/13/24 16:27 Pulse 72 06/13/24 16:27 Resp 14 06/13/24 16:27 BP 156/76 06/13/24 16:27 Pulse Ox 98 06/13/24 16:27 FiO2 Intake & Output 06/12/24 06/13/24 06/13/24 18:59 06:59 18:59 Intake Total 354 1450 476 Output Total 200 800 500 Balance 154 650 -24 Weight 90.2 kg Intake: Intake, IV Titration 1450 Amount Acyclovir Sodium 850 mg 500 In Sodium Chloride 0.9% 250 ml @ 100 mls/hr IV Q8H [facility] Rx#:[id number] Sodium Chloride 0.9% 1, 400 000 ml @ 100 mls/hr IV . Q10H [facility] Rx#:[id number] Vancomycin 1,500 mg In 500 Sodium Chloride 0.9% 500 ml 500 ml @ 167 mls/hr IVPB Q16H [facility] Rx#: [id number] cefTRIAXone 2 gm In 50 Sodium Chloride 0.9% 50 ml @ 100 mls/hr IVPB Q12HR [facility] Rx#:[id number] Oral 354 476 Output: Urine 200 800 500 Other: Voiding Method External Catheter Toilet # Voids 3 1 - Exam PHYSICAL EXAMINATION: Patient is lying in the bed comfortably, no acute distress, awake alert and claribel ented.. HEENT: Normocephalic. Neck is supple. Pupils reactive. Nostrils clear. Oral cavity is moist. Neck reveals no JVD, carotid bruits, or thyromegaly. CHEST EXAMINATION: Trachea is central. Symmetrical expansion. Lung lock clear to auscultation and percussion. CARDIAC: Normal S1, S2 with no gallops. No murmurs ABDOMEN: Soft. Bowel sounds normal. No organomegaly. No abdominal bruits. Extremities: reveal no edema. No clubbing or cyanosis Neurologically awake, alert, oriented x3 with well-coordinated movements. No focal deficits noted Skin: No rash or skin lesions. Psychiatric: Coperative. Nonsuicidal Musculoskeletal: No joint swelling or deformity. Normal range of motion. - Labs CBC & Chem 7: 06/13/24 06:59 06/13/24 06:59 Labs: Abnormal Lab Results - Last 24 Hours (Table) 06/12/24 06/13/24 06/13/24 Range/Units 19:49 06:08 06:59 Chloride 112 H (98-107) mmol/L Glucose 206 H (74-99) mg/dL POC Glucose (mg/dL) 186 H 224 H (70-110) mg/dL 06/13/24 06/13/24 Range/Units 11:29 16:20 Chloride (98-107) mmol/L Glucose (74-99) mg/dL POC Glucose (mg/dL) 230 H 238 H (70-110) mg/dL Microbiology - Last 24 Hours (Table) 06/11/24 05:30 Blood Culture Gram Stain - Final Blood Blood Culture - Final Coagulase Negative Staph Streptococcus viridans group Molecular ID Assessment and Plan Assessment: Altered mental status due to metabolic encephalopathy from infection. No acute CVA as per CT head. UA and chest x-ray negative. Rule out bacteremia versus meningitis. Mentation is back to baseline today. SIRS/sepsis. Patient was febrile, tachycardic and has leukocytosis. Primary source of infection not known. Recent left carotid atherectomy with stent placement about a week ago. Diabetes type 2 Hypertension Hyperlipidemia cannot tolerate COPD Myasthenia gravis patient receives monthly injections Prior history of smoking Hypothyroidism GI and DVT prophylaxis with Pepcid and SCDs. Plan: Patient will be continued on IV hydration with normal saline. Continue with broad-spectrum antibiotics to cover meningitis with vancomycin, ceftriaxone and acyclovir. Patient was given a dose of ceftriaxone azithromycin in the ER. Follow-up final blood cultures. Repeat blood culture ordered. Procalcitonin level is not elevated. ID and neurology is on board. Will defer LP at this time since her mentation improved overnight. Continue to follow closely. Time with Patient: Greater than 30
[2024-06-14 06:11] LABS: Glucose,Whole Blood 215 mg/dL (70-110)
[2024-06-14] MEDS: VANCOMYCIN TROUGH DUE 1 EACH MISC MISCELLANE ONE (06:32)
[2024-06-14] MEDS: VANCOMYCIN 1,500 MG in SODIUM CHLORIDE 0.9% 500 ML 500 ML IVPB SCH ×2 (07:01→17:56)
[2024-06-14 07:07] LABS: African American GFR (CKD) >90 (>60 ml/min/1.73 sqM); Non-African American GFR(CKD) 85 (>60 ml/min/1.73 sqM)
[2024-06-14] MEDS: HEPARIN SODIUM,PORCINE 5,000 UNIT/ML 1 ML VIAL SQ SCH (09:04)
[2024-06-14 11:26] LABS: Glucose,Whole Blood 212 mg/dL (70-110)
--- NOTE | 2024-06-14 13:50 | P.PN ---
Subjective Progress Note Date: 06/14/24 Principal diagnosis: Reason for follow-up is fever Patient is a 78-year-old female with a past medical history significant for hypertension hyperlipidemia COPD diabetes mellitus skin cancer and myasthenia gravis patient was brought into the hospital after pending the p atient had an episode of vomiting subsequently mental status changes and a fever. On today's evaluation that is 06/14/2024, patient has been afebrile, patient is breathing comfortably and is currently on room air, patient denies having any significant cough no chest pain, patient denies nausea vomiting or diarrhea and no abdominal pain, feeling better no new symptoms. The patient did have a creatinine 0.65 Vanco trough is 13.6 blood culture repeat currently pending Objective - Vital Signs Vital signs: Vital Signs Temp 98.2 F 06/14/24 09:06 Pulse 80 06/14/24 09:06 Resp 17 06/14/24 09:06 BP 153/70 06/14/24 09:06 Pulse Ox 98 06/14/24 09:06 FiO2 Intake & Output 06/13/24 06/14/24 06/14/24 18:59 06:59 18:59 Intake Total 716 240 Output Total 500 Balance 216 240 Weight 89.4 kg Intake: Oral 716 240 Output: Urine 500 Other: Voiding Method Toilet Toilet Toilet # Voids 2 - Exam GENERAL DESCRIPTION: Elderly female up in the chair in no distress RESPIRATORY SYSTEM: Unlabored breathing , decreased breath sounds at bases HEART: S1 S2 regular rate and rhythm , ABDOMEN: Soft , no tenderness EXTREMITIES: No edema feet - Labs CBC & Chem 7: 06/13/24 06:59 06/14/24 06:24 Labs: Abnormal Lab Results - Last 24 Hours (Table) 06/13/24 06/13/24 06/14/24 Range/Units 16:20 20:37 06:10 POC Glucose (mg/dL) 238 H 244 H 215 H (70-110) mg/dL 06/14/24 Range/Units 11:24 POC Glucose (mg/dL) 212 H (70-110) mg/dL Microbiology - Last 24 Hours (Table) 06/12/24 14:51 Blood Culture - Preliminary Blood Assessment and Plan (1) Sepsis Current Visit: Yes Status: Acute Code(s): A41.9 - SEPSIS, UNSPECIFIED ORGANISM SNOMED Code(s): 62670559 (2) Acute encephalopathy Current Visit: Yes Status: Acute Code(s): G93.40 - ENCEPHALOPATHY, UNSPECIFIED SNOMED Code(s): 60087985 (3) Leukocytosis Current Visit: Yes Status: Acute Code(s): D72.829 - ELEVATED WHITE BLOOD CELL COUNT, UNSPECIFIED SNOMED Code(s): 777040578 (4) Bacteremia Current Visit: Yes Status: Acute Code(s): R78.81 - BACTEREMIA SNOMED C ode(s): 7467061 Plan: 1patient presented to hospital with sepsis in this patient who did have fever tachycardia elevated white count meeting criteria for SIRS with concern for 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 CLERK infection as the patient did have negative UA chest x-ray not sugge stive of pneumonia her abdomen is soft on clinical examination no evidence of any joint swelling or cellulitis 2-patient did have significant improvement in less than 24 hours , that will make encephalitis meningitis to be less likely, patient did have CT abdominal pelvis did not show any intra abdominal pathology 3positive blood culture with staph epi and is also growing strep viridans questionable endovascular source echocardiogram did not show any vegetation however cardiology is recommending a ADINA which will be ordered and continue with the vancomycin Dictation was produced using [employer] dictation software. please excuse any grammatical, word or spelling errors. Time with Patient: Less than 30
--- NOTE | 2024-06-14 14:13 | P.PN ---
Subjective Progress Note Date: 06/14/24 Patient is a 62-year-old male with a known history of hypertension, diabetes type 2 insulin-dependent, coronary artery disease history of stent placement, hyperlipidemia, osteoarthritis, COPD, myasthenia gravis, history of carotid surgery and prior history of smoking. Patient presented to ER with altered mental status. Patient is unable to provide any history. According to the ER patient woke up in the morning and try to ambulate from her bedroom to the front room to sit in her chair. She accidentally lost her footing and fell and hitting her head. EMS was called and patient was found to have expressive aphasia. No prior history of stroke. There is no focal weakness noted. Patient was afebrile at home and at her normal mental status yesterday. No complaints of dysuria or hematuria. Accor ding to her son patient has been coughing. No leg swelling. Tmax on admission 102.5 and tachycardic. EKG showed sinus rhythm with marked sinus arrhythmia. Chest x-ray showed lung findings can be due to underinflation versus mild pulmonary edema and less likely pneumonia. CT cervical spine showed no fracture or subluxation. CT angiogram of the head and neck showed bilateral subclavian, vertebral, common carotid, internal carotid arteries are patent. Moderate to severe stenosis at the takeoff of left external carotid artery. CT head showed no intracranial hemorrhage or skull fracture. Laboratory data showed WBC 15.0 hemoglobin 13.8 and platelets 243 sodium 139 potassium 4.4 chloride 111 bicarb is 24 BUN 2020 creatinine 0.89 blood sugar 185 and liver enzymes showed AST 32 ALT 41 alk phos 113 and CK 82 TSH 0.017 and free T4 level is 1.54 within normal limits. Urinalysis showed 4+ glucose. Leukocyte esterase negative UDS negative Influenza A B and RSV and COVID-19 PCR not detected. According to the family at bedside., Patient did have left carotid stent/procedure about a week at different hospitals recently.. 06/12/2024 Patient did improve clinically today. Awake alert and oriented x 3 and mentation is at baseline. No complaints of chest pain or shortness of breath. No cough or sputum production. Patient has been afebrile. No neck stiffness or headache. Blood culture showed coagulase-negative Staph aureus. Patient is also maintained on antibiotics for possible meningitis. LP may not be needed. ID and neurology is on board. Repeat blood cultures were ordered. Laboratory data showed WBC 8.7 hemoglobin 11.6 and platelets 172 sodium 140 potassium 3.7 chloride 114 bicarb is 22 BUN 13 and creatinine 0.6 and blood sugar is 93 A1c 6.8. Procalcitonin level is less than 0.05 06/13/2024 Patient is resting in the bed. Awake alert and oriented x 3. No complaints of chest pain or shortness of breath. No headache or dizziness or lightheadedness. Patient has been afebrile. Tolerating oral diet. No nausea vomiting or diarrhea. Repeat blood cultures preliminary negative so far. Initial blood cultures showed coagulase-negative staph, Streptococcus viridans group. Patient is on vancomycin IV. Ceftriaxone has been discontinued. ID and neurology is on board. 06/14. Patient seen and examined. No acute issue overnight REVIEW OF SYSTEMS: CONSTITUTIONAL: No fever, no malaise,. CARDIOVASCULAR: No chest pain, no palpitations, no syncope. PULMONARY: No shortness of breath, no cough, GASTROINTESTINAL: No diarrhea, no nausea, no vomiting, no abdominal pain. NEUROLOGICAL: No headaches, no weakness, PHYSICAL EXAMINATION: GENERAL: The patient is alert and oriented x3, not in any acute distress. Well developed, well nourished. HEENT: Pupils are round and equally reacting to light. EOMI. No scleral icterus. No conjunctival pallor. Normocephalic, atraumatic. No pharyngeal erythema. No thyromegaly. CARDIOVASCULAR: S1 and S2 present. No murmurs, rubs, or gallops. PULMONARY: Chest is clear to auscultation, no wheezing or crackles. ABDOMEN: Soft, nontender, nondistended, normoactive bowel sounds. No palpable organomegaly. MUSCULOSKELETAL: No joint swelling or deformity. EXTREMITIES: No cyanosis, clubbing, or pedal edema. NEUROLOGICAL: Gross neurological examination did not reveal any focal deficits. SKIN: No rashes. Assessment and plan Altered mental status due to metabolic encephalopathy from infection. No acute CVA as per CT head. UA and chest x-ray negative. Rule out bacteremia versus meningitis. Mentation is back to baseline today. SIRS/sepsis. Patient was febrile, tachycardic and has leukocytosis. Primary source of infection not known. Recent left carotid atherectomy with stent placement about a week ago. Diabetes type 2 Hypertension Hyperlipidemia cannot tolerate COPD Myasthenia gravis patient receives monthly injections Prior history of smoking Hypothyroidism Monitor vital signs Monitor CBC Monitor CMP Follow-up on repeat blood cultures Continue IV fluids continue vancomycin ID following neurology following Labs and medication were reviewed.. Continue same treatment. Continue with symptomatic treatment. Resume home medication. Monitor labs and vitals. DVT and GI prophylaxis. Further recommendations as per clinical course of the patient Dictation was produced using [employer] dictation software. please excuse any grammatical, word or spelling errors. Objective - Vital Signs Vital signs: Vital Signs Temp 98.2 F 06/14/24 12:00 Pulse 77 06/14/24 12:00 Resp 17 06/14/24 12:00 BP 111/77 06/14/24 12:00 Pulse Ox 98 06/14/24 12:00 FiO2 Intake & Output 06/13/24 06/14/24 06/14/24 18:59 06:59 18:59 Intake Total 716 480 Output Total 500 Balance 216 480 Weight 89.4 kg Intake: Oral 716 480 Output: Urine 500 Other: Voiding Method Toilet Toilet Toilet # Voids 2 - Labs CBC & Chem 7: 06/13/24 06:59 06/14/24 06:24 Labs: Abnormal Lab Results - Last 24 Hours (Table) 06/13/24 06/13/24 06/14/24 Range/Units 16:20 20:37 06:10 POC Glucose (mg/dL) 238 H 244 H 215 H (70-110) mg/dL 06/14/24 Range/Units 11:24 POC Glucose (mg/dL) 212 H (70-110) mg/dL Microbiology - Last 24 Hours (Table) 06/12/24 14:51 Blood Culture - Preliminary Blood
[2024-06-14 16:44] LABS: Glucose,Whole Blood 205 mg/dL (70-110)
[2024-06-14] MEDS: PYRIDOSTIGMINE 60 MG TAB PO SCH ×2 (17:05→20:41)
[2024-06-14] MEDS: CLOPIDOGREL 75 MG TAB PO SCH (17:06)
[2024-06-14] MEDS: METOPROLOL SUCCINATE (ER) 25 MG TAB.ER.24H PO SCH (17:06)
[2024-06-14 20:11] LABS: Glucose,Whole Blood 217 mg/dL (70-110)
[2024-06-15 06:09] LABS: Glucose,Whole Blood 219 mg/dL (70-110)
[2024-06-15 10:16] LABS: African American GFR (CKD) >90 (>60 ml/min/1.73 sqM); Non-African American GFR(CKD) 86 (>60 ml/min/1.73 sqM)
[2024-06-15 12:09] LABS: Glucose,Whole Blood 251 mg/dL (70-110)
--- NOTE | 2024-06-15 12:49 | P.PN ---
Subjective Progress Note Date: 06/15/24 Patient is a 62-year-old male with a known history of hypertension, diabetes type 2 insulin-dependent, coronary artery disease history of stent placement, hyperlipidemia, osteoarthritis, COPD, myasthenia gravis, history of carotid surgery and prior history of smoking. Patient presented to ER with altered mental status. Patient is unable to provide any history. According to the ER patient woke up in the morning and try to ambulate from her bedroom to the front room to sit in her chair. She accidentally lost her footing and fell and hitting her head. EMS was called and patient was found to have expressive aphasia. No prior history of stroke. There is no focal weakness noted. Patient was afebrile at home and at her normal mental status yesterday. No complaints of dysuria or hematuria. Accor ding to her son patient has been coughing. No leg swelling. Tmax on admission 102.5 and tachycardic. EKG showed sinus rhythm with marked sinus arrhythmia. Chest x-ray showed lung findings can be due to underinflation versus mild pulmonary edema and less likely pneumonia. CT cervical spine showed no fracture or subluxation. CT angiogram of the head and neck showed bilateral subclavian, vertebral, common carotid, internal carotid arteries are patent. Moderate to severe stenosis at the takeoff of left external carotid artery. CT head showed no intracranial hemorrhage or skull fracture. Laboratory data showed WBC 15.0 hemoglobin 13.8 and platelets 243 sodium 139 potassium 4.4 chloride 111 bicarb is 24 BUN 2020 creatinine 0.89 blood sugar 185 and liver enzymes showed AST 32 ALT 41 alk phos 113 and CK 82 TSH 0.017 and free T4 level is 1.54 within normal limits. Urinalysis showed 4+ glucose. Leukocyte esterase negative UDS negative Influenza A B and RSV and COVID-19 PCR not detected. According to the family at bedside., Patient did have left carotid stent/procedure about a week at different hospitals recently.. 06/12/2024 Patient did improve clinically today. Awake alert and oriented x 3 and mentation is at baseline. No complaints of chest pain or shortness of breath. No cough or sputum production. Patient has been afebrile. No neck stiffness or headache. Blood culture showed coagulase-negative Staph aureus. Patient is also maintained on antibiotics for possible meningitis. LP may not be needed. ID and neurology is on board. Repeat blood cultures were ordered. Laboratory data showed WBC 8.7 hemoglobin 11.6 and platelets 172 sodium 140 potassium 3.7 chloride 114 bicarb is 22 BUN 13 and creatinine 0.6 and blood sugar is 93 A1c 6.8. Procalcitonin level is less than 0.05 06/13/2024 Patient is resting in the bed. Awake alert and oriented x 3. No complaints of chest pain or shortness of breath. No headache or dizziness or lightheadedness. Patient has been afebrile. Tolerating oral diet. No nausea vomiting or diarrhea. Repeat blood cultures preliminary negative so far. Initial blood cultures showed coagulase-negative staph, Streptococcus viridans group. Patient is on vancomycin IV. Ceftriaxone has been discontinued. ID and neurology is on board. 06/14. Patient seen and examined. No acute issue overnight 06/15. Patient seen and examined. Answering questions appropriately. No episodes of any fevers overnight. Cardiology consulted for ADINA REVIEW OF SYSTEMS: CONSTITUTIONAL: No fever, no malaise,. CARDIOVASCULAR: No chest pain, no palpitations, no syncope. PULMONARY: No shortness of breath, no cough, GASTROINTESTINAL: No diarrhea, no nausea, no vomiting, no abdominal pain. NEUROLOGICAL: No headaches, no weakness, PHYSICAL EXAMINATION: GENERAL: The patient is alert and oriented x3, not in any acute distress. Well developed, well nourished. HEENT: Pupils are round and equally reacting to light. EOMI. No scleral icterus. No conjunctival pallor. Normocephalic, atraumatic. No pharyngeal erythema. No thyromegaly. CARDIOVASCULAR: S1 and S2 present. No murmurs, rubs, or gallops. PULMONARY: Chest is clear to auscultation, no wheezing or crackles. ABDOMEN: Soft, nontender, nondistended, normoactive bowel sounds. No palpable organomegaly. MUSCULOSKELETAL: No joint swelling or deformity. EXTREMITIES: No cyanosis, clubbing, or pedal edema. NEUROLOGICAL: Gross neurological examination did not reveal any focal deficits. SKIN: No rashes. Assessment and plan Altered mental status due to metabolic encephalopathy from infection. No acute CVA as per CT head. UA and chest x-ray negative. Rule out bacteremia versus me ningitis. Mentation is back to baseline today. SIRS/sepsis. Patient was febrile, tachycardic and has leukocytosis. Primary source of infection not known. Recent left carotid atherectomy with stent placement about a week ago. Diabetes type 2 Hypertension Hyperlipidemia cannot tolerate COPD Myasthenia gravis patient receives monthly injections Prior history of smoking Hypothyroidism Monitor vital signs Monitor CBC Monitor CMP Follow-up on repeat blood cultures DC fluids continue vancomycin ADINA ordered ID following neurology following Cardiology consulted Labs and medication were reviewed.. Continue same treatment. Continue with symptomatic treatment. Resume home medication. Monitor labs and vitals. DVT and GI prophylaxis. Further recommendations as per clinical course of the mario ent Dictation was produced using [employer] dictation software. please excuse any grammatical, word or spelling errors. Objective - Vital Signs Vital signs: Vital Signs Temp 98.1 F 06/15/24 07:30 Pulse 67 06/15/24 07:30 Resp 17 06/15/24 07:30 BP 168/82 06/15/24 07:30 Pulse Ox 97 06/15/24 07:30 FiO2 Intake & Output 06/14/24 06/15/24 06/15/24 18:59 06:59 18:59 Intake Total 1020 20 Output Total 400 Balance 1020 -400 20 Weight 89.1 kg Intake: IV 20 Invasive Line 3 10 Invasive Line 4 10 Oral 1020 Output: Urine 400 Other: Voiding Method Toilet Toilet # Voids 2 - Labs CBC & Chem 7: 06/13/24 06:59 06/15/24 08:52 Labs: Abnormal Lab Results - Last 24 Hours (Table) 06/14/24 06/14/24 06/14/24 Range/Units : 16:43 20:10 POC Glucose (mg/dL) 212 H 205 H 217 H (70-110) mg/dL 06/15/24 Range/Units 06:08 POC Glucose (mg/dL) 219 H (70-110) mg/dL Microbiology - Last 24 Hours (Table) 06/12/24 14:51 Blood Culture - Preliminary Blood
--- NOTE | 2024-06-15 14:47 | P.CRDCN ---
History of Present Illness Consult date: 06/15/24 History of present illness: HISTORY OF PRESENTING ILLNESS 62-year-old female known to Dr. Richardson, history of type 2 diabetes, hypertension, coronary artery disease status post PCI, carotid stenosis status post recent stenting, COPD, myasthenia gravis. She presented to the hospital because of changes in mental status and generalized weakness. On admission she was found to have Streptococcus viridans group bacteremia. Cardiology was consulted to evaluate for any concerns of endocarditis. She denies any symptoms of chest pain chest pressure palpitation lightheadedness or dizziness. Troponin was not elevated, LDL 86, creatinine 0.8, hemoglobin 13.8, ECG shows sinus rhythm, mild nonspecific ST depressions in lateral leads noticed. Chest x-ray showed lung findings can be due to underinflation versus mild pulmonary edema and less likely pneumonia. CT cervical spine showed no fracture or subluxation. CT angiogram of the head and neck showed bilateral subclavian, vertebral, common carotid, internal carotid arteries are patent. Moderate to severe stenosis at the takeoff of left external carotid artery. CT head showed no intracranial hemorrhage or skull fracture. REVIEW OF SYSTEMS 14 point review of system is negative except what is mentioned above in HPI. PHYSICAL EXAMINATION Vital signs reviewed. Head: Normocephalic. Eyes: Sclerae nonicteric. Neck: Brisk carotid upstroke, no jugular venous distention. Lungs: Clear to auscultation. Heart: Regular rate and rhythm, S1-S2, no S3, no murmur or rub. Abdomen: Soft nontender, positive bowel sounds. Extremities: No edema, intact distal pulses. Neuro: Alert, oritented, no focal deficits. Detailed neuro exam was not performed. ASSESSMENT Streptococcus viridans bacteremia Type 2 diabetes Hypertension Dyslipidemia CAD status post PCI Carotid stenosis status post recent stenting Altered mental status, metabolic encephalopathy, resolved now. Surface echo showed EF 55%, no major valvular normality or structural abnormality PLAN Continue Plavix, Lipitor, metoprolol 25 mg daily. Plan for ADINA with Dr. Richardson 9 AM tomorrow Eric Oconnell MD, FACC, RPVI Thank you for allowing [facility] to participate in this patient's care. Feel free to reach out in case of any followup questions. Past Medical History Past Medical History: COPD, Diabetes Mellitus, Eye Disorder, Hyperlipidemia, Hypertension, Osteoarthritis (OA) Additional Past Medical History / Comment(s): Skin CA, Myasthenia Gravis History of Any Multi-Drug Resistant Organisms: None Reported Past Surgical History: Section, Heart Catheterization With Stent Additional Past Surgical History / Comment(s): skin CA removal Past Anesthesia/Blood Transfusion Reactions: No Reported Reaction Date of Last Stent Placement:: 2004 Past Psychological History: No Psychological Hx Reported Smoking Status: Former smoker Past Alcohol Use History: Occasional Past Drug Use History: None Reported - Past Family History Mother Family Medical History: Cancer, Myocardial Infarction ([place]) Father Family Medical History: COPD, Rheumatoid Arthritis (RA) Medications and Allergies Home Medications Medication Instructions Recorded Confirmed Type Potassium Chloride [Klor-Con 10 ER] 10 meq PO DAILY 03/01/17 06/11/24 History glyBURIDE [Diabeta] 5 mg PO BID 03/01/17 06/11/24 History Aspirin [Adult Low Dose Aspirin EC] 81 mg PO DAILY 05/07/20 06/11/24 History Metoprolol Succinate [Toprol XL] 25 mg PO DAILY 05/07/20 06/11/24 History Pyridostigmine [Mestinon] 180 mg PO BID@0900,2100 05/07/20 06/11/24 History Rosuvastatin Calcium [Crestor] 40 mg PO HS 07/05/20 06/11/24 History Insulin Glargine,Hum.rec.anlog 65 unit SQ DAILY 03/07/24 06/11/24 History [Basaglar Kwikpen U-100] Levothyroxine Sodium [Synthroid] 125 mcg PO DAILY 03/07/24 06/11/24 History Mirabegron [Myrbetriq] 25 mg PO DAILY 03/07/24 06/11/24 History Pyridostigmine [place] [Mestinon] 120 mg PO DAILY@1500 03/07/24 06/11/24 History Semaglutide [Ozempic] 2 mg SQ Q7D 03/07/24 06/11/24 History Clopidogrel [Plavix] 75 mg PO DAILY 05/01/24 06/11/24 History Empagliflozin/Linagliptin 1 tab PO DAILY 05/01/24 06/11/24 History [Glyxambi 25 mg-5 mg Tablet] Latanoprost [Latanoprost 0.005%] 1 drop BOTH EYES HS 06/11/24 06/11/24 History Vyvgart 20mg/Ml Solution 1 dose IV DIRECTED 06/11/24 06/11/24 History Allergies Allergy/AdvReac Type Severity Reaction Status Date / Time metformin AdvReac Diarrhea Verified 06/11/24 09:01 Physical Exam Vitals: Vital Signs Temp Pulse Resp BP Pulse Ox 06/15/24 12:00 98.2 F 72 17 155/76 97 06/15/24 07:30 98.1 F 67 17 168/82 97 06/15/24 04:00 98.4 F 67 16 154/75 99 06/14/24 23:10 97.9 F 78 15 158/86 99 06/14/24 20:00 72 16 144/86 97 06/14/24 16:00 98.4 F 91 17 171/93 97 Intake and Output 06/14/24 06/15/24 06/15/24 22:59 06:59 14:59 Intake Total 540 20 Output Total 400 Balance 540 -400 20 Intake: IV 20 Invasive Line 3 10 Invasive Line 4 10 Oral 540 Output: Urine 400 Other: Voiding Method Toilet Toilet Toilet # Voids 2 Weight 89.1 kg Results 06/13/24 06:59 06/15/24 08:52 Comprehensive Metabolic Panel 06/15/24 Range/Units 08:52 Creatinine 0.62 (0.52-1.04) mg/dL Current Medications Generic Name Dose Route Start Last Admin Trade Name Freq PRN Reason Stop Dose Admin Acetaminophen 650 mg 06/12/24 20:47 06/14/24 17:08 Acetaminophen Tab 325 Mg Tab PO 650 mg Q4HR PRN Administration Fever and/ or Mild Pain Atorvastatin Calcium 40 mg 06/11/24 09:00 06/15/24 07:33 Atorvastatin 40 Mg Tab PO 40 mg DAILY FRANCES Administration Clopidogrel Bisulfate 75 mg 06/14/24 15:15 06/15/24 07:33 Clopidogrel 75 Mg Tab PO 75 mg DAILY FRANCES Administration Dextrose/Water 25 ml 06/11/24 09:49 Dextrose 50% Syringe 50 Ml IVP PER PROTOCOL PRN Hypoglycemia Protocol Dextrose/Water 50 ml 06/11/24 09:49 Dextrose 50% Syringe 50 Ml IVP PER PROTOCOL PRN Hypoglycemia Protocol Famotidine 20 mg 06/11/24 21:00 06/15/24 07:32 Famotidine 20 Mg Tab PO 20 mg BID FRANCES Administration Heparin Sodium (Porcine) 5,000 unit 06/14/24 08:00 06/15/24 07:34 Heparin Sodium,Porcine 5,000 Unit/Ml 1 Ml Vial SQ 5,000 unit Q8HR FRANCES Administration Vancomycin HCl 1,500 mg/ 500 mls @ 167 mls/hr 06/14/24 19:00 06/15/24 06:22 Sodium Chloride IVPB 167 mls/hr Q12H FRANCES Administration Insulin Aspart 0 unit 06/11/24 12:30 06/15/24 12:35 Insulin Aspart (Novolog) 100 Unit/Ml Vial SQ 3 unit ACHS FRANCES Administration Protocol Latanoprost 1 drops 06/11/24 21:00 06/14/24 20:40 Latanoprost 0.005% Ophth Drops 2.5 Ml Btl BOTH EYES 1 drops HS FRANCES Administration Levothyroxine Sodium 125 mcg 06/12/24 06:30 06/15/24 06:23 Levothyroxine 125 Mcg Tab PO 125 mcg DAILY@0630 FRANCES Administration Metoprolol Succinate 25 mg 06/14/24 15:15 06/15/24 07:32 Metoprolol Succinate (Er) 25 Mg Tab.Er.24h PO 25 mg DAILY FRANCES Administration Miscellaneous Information 1 each 06/11/24 07:14 Pneumonia Protocol Utilized 1 Each Misc PO ONCE PRN Per Protocol Miscellaneous Information 1 each 06/16/24 06:00 Vancomycin Trough Due 1 Each Misc MISCELLANE 06/16/24 06:01 ONCE ONE Pyridostigmine [place] 180 mg 06/14/24 21:00 06/15/24 07:32 Pyridostigmine 60 Mg Tab PO 180 mg BID@0900,2100 FRANCES Administration Pyridostigmine [place] 120 mg 06/14/24 16:24 06/14/24 17:05 Pyridostigmine 60 Mg Tab PO 120 mg DAILY@1500 FRANCES Administration Intake and Output 06/14/24 06/15/24 06/15/24 22:59 06:59 14:59 Intake Total 540 20 Output Total 400 Balance 540 -400 20 Intake: IV 20 Invasive Line 3 10 Invasive Line 4 10 Oral 540 Output: Urine 400 Other: Voiding Method Toilet Toilet Toilet # Voids 2 Weight 89.1 kg 06/13/24 06:59 06/15/24 08:52
[2024-06-15] MEDS ORDERED: PYRIDOSTIGMINE 60 MG TAB PO SCH (15:00)
[2024-06-15 16:20] LABS: Glucose,Whole Blood 221 mg/dL (70-110)
[2024-06-15 19:58] LABS: Glucose,Whole Blood 215 mg/dL (70-110)
[2024-06-16 05:45] LABS: Basophils % (A) 0 %; Eosinophils # (A) 0.4 k/uL (0-0.7); Eosinophils % (A) 5 %; HCT 37.2 % (34.0-46.0); HGB 12.4 gm/dL (11.4-16.0); Lymphocytes # (A) 1.2 k/uL (1.0-4.8); Lymphocytes % (A) 15 %; MCH 29.6 pg (25.0-35.0); MCHC 33.4 g/dL (31.0-37.0); MCV 88.6 fL (80.0-100.0); Mean Platelet Volume 7.5; Monocytes # (A) 0.5 k/uL (0-1.0); Monocytes % (A) 7 %; Neutrophils # (A) 5.6 k/uL (1.3-7.7); Neutrophils % (A) 72 %; Platelet Count 155 k/uL (150-450); RDW 14.4 % (11.5-15.5); WBC 7.8 k/uL (3.8-10.6)
[2024-06-16 06:00] LABS: ALT 20 U/L (4-34); AST 19 U/L (14-36); African American GFR (CKD) >90 (>60 ml/min/1.73 sqM); Albumin 3.2 g/dL (3.5-5.0); Alkaline Phosphatase 89 U/L (38-126); Anion Gap 1 mmol/L; Blood Urea Nitrogen 9 mg/dL (7-17); Carbon Dioxide 24 mmol/L (22-30); Chloride 112 mmol/L (98-107); Glucose 228 mg/dL (74-99); Non-African American GFR(CKD) 87 (>60 ml/min/1.73 sqM); Potassium 3.4 mmol/L (3.5-5.1); Sodium 137 mmol/L (137-145); Total Bilirubin 0.5 mg/dL (0.2-1.3); Total Protein 5.1 g/dL (6.3-8.2)
[2024-06-16 06:12] LABS: Glucose,Whole Blood 243 mg/dL (70-110)
[2024-06-16] MEDS: VANCOMYCIN TROUGH DUE 1 EACH MISC MISCELLANE ONE (08:01)
[2024-06-16] MEDS ORDERED: BENZOCAINE SPRAY 1 CAN TOPICAL PRN (08:15)
[2024-06-16] MEDS ORDERED: MIDAZOLAM 2 MG/2 ML VIAL IV PRN (08:15)
[2024-06-16] MEDS ORDERED: fentaNYL (PF) 50 MCG/ML 5 ML AMP IVP PRN (08:15)
[2024-06-16] MEDS: IV FLUID CONTINUATION 1,000 ML IV ONE (09:55)
[2024-06-16] MEDS: BENZOCAINE SPRAY 1 EACH MM ONE (09:58)
[2024-06-16] MEDS: MIDAZOLAM 2 MG/2 ML VIAL IVP ONE (10:00)
[2024-06-16] MEDS: fentaNYL (PF) 50 MCG/1 ML VIAL IVP ONE (10:00)
--- NOTE | 2024-06-16 10:15 | P.PN ---
Subjective Progress Note Date: 06/16/24 PROGRESS NOTE The patient is a 78-year-old female with known history of CAD, carotid disease status post stenting, history of hypertension who presented with change in mental status and evidence of sepsis. She has a history of myasthenia gravis and has been receiving infusions. She had positive blood cultures. She had Streptococcus viridans. She is feeling well this morning, anxious to go home. She denies any chest discomfort, dizziness or palpitations. She continues to be in sinus mechanism. Her echocardiogram showed a preserved systolic function. She is scheduled to undergo ADINA today. Medications: Atorvastatin 40 mg daily, Plavix 75 mg daily, metoprolol succinate 25 mg daily, Mestinon. PHYSICAL EXAMINATION: Blood pressure 148/70 heart rate 70 LUNGS: Clear to auscultation HEART: Regular rate and rhythm, S1, S2. No S3. Systolic ejection murmur ABDOMEN: Soft, nontender, no organomegaly EXTREMETIES: No edema LAB: WBC 7.8, hemoglobin 12.4, BUN 9, creatinine 0.61. IMPRESSION: 1. Bacteremia with Streptococcus viridans positive blood cultures 2. History of CAD status post stenting 3. History of carotid disease status post stenting 4. Myasthenia gravis 5. History of hypertension 6. History of hyperlipidemia PLAN: 1. Continue present medical regimen 2. Proceed with ADINA to rule out endocarditis 3. The procedure as well as the risks and the complications were discussed with the patient who was in full agreement 4. Depending on her progress further recommendations will be made Objective - Vital Signs Vital signs: Vital Signs Temp 98.1 F 06/15/24 19:56 Pulse 70 06/16/24 03:19 Resp 18 06/16/24 03:19 BP 151/66 06/16/24 03:19 Pulse Ox 98 06/16/24 03:19 FiO2 Intake & Output 06/15/24 06/16/24 06/16/24 18:59 06:59 18:59 Intake Total 160 20 50 Balance 160 20 50 Weight 88.2 kg Intake: IV 40 20 50 Invasive Line 3 20 10 Invasive Line 4 20 10 Oral 120 Other: Voiding Method Toilet Toilet # Voids 2 3 # Bowel Movements 1 - Labs CBC & Chem 7: 06/16/24 05:19 06/16/24 05:19 Labs: Abnormal Lab Results - Last 24 Hours (Table) 06/15/24 06/15/24 06/15/24 Range/Units 12:08 16:20 19:57 Potassium (3.5-5.1) mmol/L Chloride (98-107) mmol/L Glucose (74-99) mg/dL POC Glucose (mg/dL) 251 H 221 H 215 H (70-110) mg/dL Total Protein (6.3-8.2) g/dL Albumin (3.5-5.0) g/dL 06/16/24 06/16/24 Range/Units 05:19 06:10 Potassium 3.4 L (3.5-5.1) mmol/L Chloride 112 H (98-107) mmol/L Glucose 228 H (74-99) mg/dL POC Glucose (mg/dL) 243 H (70-110) mg/dL Total Protein 5.1 L (6.3-8.2) g/dL Albumin 3.2 L (3.5-5.0) g/dL Microbiology - Last 24 Hours (Table) 06/12/24 14:51 Blood Culture - Preliminary Blood
--- NOTE | 2024-06-16 10:17 | P.PCN ---
Date of Procedure: 06/16/24 Description of Procedure: Indication: Bacteremia Procedure Description: After explaining the procedure to the patient, it's risk and complications, blood pressure, heart rate and O2 saturation were monitored. The throat was sprayed with Cetacaine. Patient received 2 mg intravenous Versed, 50 mcg intravenous fentanyl. The probe was introduced into the esophagus without difficulty. Images were obtained. Following that, the probe was removed. There was no immediate complication. Findings: Left atrial size is normal, left atrial appendage is normal. Left ventricular size and systolic function are normal. The interatrial septum is aneurysmal. The aortic valve revealed mild fibrocalcific changes of the cusps with preserved opening. Mild mitral annulus calcification was noted. The tricuspid and pulmonic valve are normal. No vegetations was noted. Small pericardial effusion was noted. Descending thoracic aorta shows mild atherosclerotic changes. Contrast bubble study revealed mild shunting through a patent foramen ovale with [id number] shunt Doppler: Pulse wave and color Doppler were obtained, and revealed mild to moderate mitral and tricuspid regurgitation with trace pulmonic regurgitation. Evidence of patent foramen ovale with [id number] shunting was noted. Conclusion: 1. Normal appearance of the left atrial appendage 2. Normal limits for size and systolic function 3. Mild to moderate mitral and tricuspid regurgitation 4. Patent foramen ovale with bidirectional shunting and interatrial septal aneurysmal formation 5. No evidence of vegetations 6. Small pericardial effusion 7. Mild atherosclerotic changes of the descending thoracic aorta Duration of sedation 15 minutes
[2024-06-16] MEDS ORDERED: SODIUM CHLORIDE 0.9% 1,000 ML IV SCH (10:30)
[2024-06-16 11:37] LABS: Glucose,Whole Blood 249 mg/dL (70-110)
--- NOTE | 2024-06-16 12:14 | P.PN ---
Subjective Progress Note Date: 06/15/24 Principal diagnosis: Reason for follow-up is fever Patient is a 78-year-old female with a past medical history significant for hypertension hyperlipidemia COPD diabetes mellitus skin cancer and myasthenia gravis patient was brought into the hospital after pending the p atient had an episode of vomiting subsequently mental status changes and a fever. On today's evaluation that is 06/15/2024, Patient is afebrile this morning patient denies having any chest pain shortness of breath or cough, the patient is currently on room air, patient denies any abdominal pain no diarrhea no nausea no vomiting, feeling better no new symptoms. Patient did have a creatinine 0.6 2 repeat blood culture have been negative so far Objective - Vital Signs Vital signs: Vital Signs Temp 98.2 F 06/15/24 12:00 Pulse 72 06/15/24 12:00 Resp 17 06/15/24 12:00 BP 155/76 06/15/24 12:00 Pulse Ox 97 06/15/24 12:00 FiO2 Intake & Output 06/14/24 06/15/24 06/15/24 18:59 06:59 18:59 Intake Total 1020 20 Output Total 400 Balance 1020 -400 20 Weight 89.1 kg Intake: IV 20 Invasive Line 3 10 Invasive Line 4 10 Oral 1020 Output: Urine 400 Other: Voiding Method Toilet Toilet Toilet # Voids 2 - Exam GENERAL DESCRIPTION: Elderly female up in the chair in no distress RESPIRATORY SYSTEM: Unlabored breathing , decreased breath sounds at bases HEART: S1 S2 regular rate and rhythm , ABDOMEN: Soft , no tenderness EXTREMITIES: No edema feet - Labs CBC & Chem 7: 06/13/24 06:59 06/15/24 08:52 Labs: Abnormal Lab Results - Last 24 Hours (Table) 06/14/24 06/14/24 06/15/24 Range/Units 16:43 20:10 06:08 POC Glucose (mg/dL) 205 H 217 H 219 H (70-110) mg/dL 06/15/24 Range/Units 12:08 POC Glucose (mg/dL) 251 H (70-110) mg/dL Microbiology - Last 24 Hours (Table) 06/12/24 14:51 Blood Culture - Preliminary Blood Assessment and Plan (1) Sepsis Current Visit: Yes Status: Acute Code(s): A41.9 - SEPSIS, UNSPECIFIED ORGANISM SNOMED Code(s): 30085784 (2) Acute encephalopathy Current Visit: Yes Status: Acute Code(s): G93.40 - ENCEPHALOPATHY, UNSPECIFIED SNOMED Code(s): 26379822 (3) Leukocytosis Current Visit: Yes Status: Acute Code(s): D72.829 - ELEVATED WHITE BLOOD CELL COUNT, UNSPECIFIED SNOMED Code(s): 188811090 (4) Bacteremia Current Visit: Yes Status: Acute Code(s): R78.81 - BACTEREMIA SNOMED Code(s): 1223659 Plan: 1patient presented to hospital with sepsis in this patient who did have fever tachycardia elevated white count meeting criteria for SIRS with concern for possible [employer] infection as the patient did have negative UA chest x-ray not suggestive of pneumonia her abdomen is soft on clinical examination no evidence of any joint swelling or cellulitis 2-patient did have significant improvement in less than 24 hours , that will make encephalitis meningitis to be less likely, patient did have CT abdominal pelvis did not show any intra abdominal pathology 3positive blood culture with staph epi and is also growing strep viridans questionable endovascular source echocardiogram did not show any vegetation however cardiology is recommending a ADINA which has been scheduled for 06/16/2024 at 9 AM will continue with vancomycin while watching her kidney function closely which is currently normal Dictation was produced using [employer] dictation software. please excuse any grammatical, word or spelling errors. Time with Patient: Less than 30
--- NOTE | 2024-06-16 12:15 | P.PN ---
Subjective Progress Note Date: 06/16/24 Principal diagnosis: Reason for follow-up is fever Patient is a 78-year-old female with a past medical history significant for hypertension hyperlipidemia COPD diabetes mellitus skin cancer and myasthenia gravis patient was brought into the hospital after pending the p atient had an episode of vomiting subsequently mental status changes and a fever. On today's evaluation that is 06/16/2024,the patient denies any fever or any chills, patient is breathing comfortably on room air, the patient denies chest pain shortness of breath and no significant cough, patient denies abdominal pain, no nausea vomiting or diarrhea. Feeling better wants to go home. Patient white count 7.8, creatinine 0.61, blood culture repeat has been negative ADINA reported negative for any vegetation Objective - Vital Signs Vital signs: Vital Signs Temp 98.1 F 06/15/24 19:56 Pulse 72 06/16/24 10:05 Resp 16 06/16/24 10:05 BP 178/81 06/16/24 10:05 Pulse Ox 98 06/16/24 10:05 FiO2 Intake & Output 06/15/24 06/16/24 06/16/24 18:59 06:59 18:59 Intake Total 160 20 50 Balance 160 20 50 Weight 88.2 kg Intake: IV 40 20 50 Invasive Line 3 20 10 Invasive Line 4 20 10 Oral 120 Other: Voiding Method Toilet Toilet # Voids 2 3 # Bowel Movements 1 - Exam GENERAL DESCRIPTION: Elderly female up in the chair in no distress RESPIRATORY SYSTEM: Unlabored breathing , decreased breath sounds at bases HEART: S1 S2 regular rate and rhythm , ABDOMEN: Soft , no tenderness EXTREMITIES: No edema feet - Labs CBC & Chem 7: 06/16/24 05:19 06/16/24 05:19 Labs: Abnormal Lab Results - Last 24 Hours (Table) 06/15/24 06/15/24 06/16/24 Range/Units 16:20 19:57 05:19 Potassium 3.4 L (3.5-5.1) mmol/L Chloride 112 H (98-107) mmol/L Glucose 228 H (74-99) mg/dL POC Glucose (mg/dL) 221 H 215 H (70-110) mg/dL Total Protein 5.1 L (6.3-8.2) g/dL Albumin 3.2 L (3.5-5.0) g/dL 06/16/24 06/16/24 Range/Units 06:10 11:36 Potassium (3.5-5.1) mmol/L Chloride (98-107) mmol/L Glucose (74-99) mg/dL POC Glucose (mg/dL) 243 H 249 H (70-110) mg/dL Total Protein (6.3-8.2) g/dL Albumin (3.5-5.0) g/dL Microbiology - Last 24 Hours (Table) 06/12/24 14:51 Blood Culture - Preliminary Blood Assessment and Plan (1) Sepsis Current Visit: Yes Status: Acute Code(s): A41.9 - SEPSIS, UNSPECIFIED ORGANISM SNOMED Code(s): 08135997 (2) Acute encephalopathy Current Visit: Yes Status: Acute Code(s): G93.40 - ENCEPHALOPATHY, UNSPECIFIED SNOMED Code(s): 86671000 (3) Leukocytosis Current Visit: Yes Status: Acute Code(s): D72.829 - ELEVATED WHITE BLOOD CELL COUNT, UNSPECIFIED SNOMED Code(s): 637238855 (4) Bacteremia Current Visit: Yes Status: Acute Code(s): R78.81 - BACTEREMIA SNOMED Code(s): 8102938 Plan: 1patient presented to hospital with sepsis in this patient who did have fever tachycardia elevated white count meeting criteria for SIRS with concern for possible [employer] infection as the patient did have negative UA chest x-ray not suggestive of pneumonia her abdomen is soft on clinical examination no evidence of any joint swelling or cellulitis 2-patient did have significant improvement in less than 24 hours , that will make encephalitis meningitis to be less likely, patient did have CT abdominal pelvis did not show any intra abdominal pathology 3positive blood culture with staph epi and is also growing strep viridans questionable skin contamination versus endovascular source echocardiogram did not show any vegetation however cardiology is recommending a ADINA which was completed 06/16/2024 and did not show any endocarditis we will go ahead and discontinue vancomycin will consider short course of oral Ceftin on discharge Dictation was produced using [employer] dictation software. please excuse any grammatical, word or spelling errors. Time with Patient: Less than 30
[2024-06-16 14:36] VITALS: BP 161/69; PULSE 66; RESP 18; TEMP 98.4
[2024-06-16] MEDS ORDERED: CEFDINIR 300 MG CAP PO SCH (21:00)
--- NOTE | 2024-06-18 09:57 | P.DS ---
Providers Date of admission: 06/11/24 07:03 Expected date of discharge: 06/16/24 Attending physician: Mary Ramos Consults: 06/11/24 07:12 Consult Physician Urgent Consulting Provider: Ramon Granda Consult Reason/Comments: expressive aphasia Do you want consulting provider notified?: Yes 06/11/24 09:57 Consult Physician Routine Consulting Provider: Ny Villalba Consult Reason/Comments: Fever and altered mental status Do you want consulting provider notified?: Yes 06/11/24 14:41 Consult to Anesthesia Routine Consulting Provider: Anesthesia,Services Consult Reason/Comments: lumbar puncture r/o meningoencephalitis 06/14/24 19:19 Consult Physician Routine Consulting Provider: Eric Oconnell Consult Reason/Comments: want ADINA Do you want consulting provider notified?: Yes, Notify in am Primary care physician: Dora Alexander [place] Hospital Course: Final diagnosis Altered mental status due to metabolic encephalopathy from infection. No acute CVA as per CT head. UA and chest x-ray negative. Mentation is back to baseline today. SIRS/sepsis. Patient was febrile, tachycardic and has leukocytosis. Primary source of infection not known. Initial blood cultures positive for Streptococcus viridians, concern for contamination. Repeat blood cultures negative Recent left carotid atherectomy with stent placement about a week ago. Diabetes type 2 Hypertension Hyperlipidemia cannot tolerate COPD Myasthenia gravis patient receives monthly injections Prior history of smoking Hypothyroidism Discharge disposition Patient is being discharged in a stable condition with guarded prognosis to home. Patient will follow-up with Dr. Alexander in the outpatient setting upon discharge. Patient is to continue with oral Ceftin for 1 week course and outpatient follow-up with infectious disease as scheduled. Total time taken is greater than 35 minutes. Hospital course This is a 78-year-old female who was recently admitted with acute altered mental status likely metabolic encephalopathy from infection. Multiple studies performed and negative. Patient did have positive bacteremia and evaluated by infectious disease being closely monitored. Patient maintained on antibiotics showing clinical improvement and repeat blood cultures are negative. Patient is adamant about going home today reports to feeling improved and has been cleared by infectious disease. Patient will continue on oral Ceftin twice daily for 1 week and close outpatient follow-up with her primary care provider as well as infectious disease. Please refer to other consultation notes for further HPI. Currently no reports of chest pain, shortness of breath, or palpitations. Patient is afebrile. No reports of nausea or vomiting and patient is tolerating diet. Patient will be discharged home today. Guarded prognosis. Physical exam: Gen: This is a 78-year-old female who is awake, alert and oriented x 3, well- developed, well-nourished, elderly appearing, obese HEENT: Head is atraumatic, normocephalic. Pupils equal, round. Sclerae is anicteric. NECK: Supple. No JVD. No lymphadenopathy. No thyromegaly. LUNGS: Diminished breath sounds bilaterally otherwise clear to auscultation. No wheezes or rhonchi. No intercostal retractions. HEART: S1, S2 are muffled ABDOMEN: Soft. Bowel sounds are present. No masses. No tenderness. EXTREMITIES: No pedal edema. No calf tenderness. NEUROLOGICAL: Patient is awake, alert and oriented x3. Cranial nerves 2 through 12 are grossly intact. Please refer to medication reconciliation sheet for a list of medications. The impression and plan of care has been dictated by Smita Leal, Nurse Practitioner as directed. Dr. Richard MD I have performed a history and examination and MDM of this patient, discussed the same with the dictator, and agree with the dictator's assessment and plan as written ,documented as a scribe. Based on total visit time, I have performed more than 50% of the visit. Patient Condition at Discharge: Stable Plan - Discharge Summary Discharge Rx Participant: Yes New Discharge Prescriptions: New cefuroxime axetiL [Ceftin] 500 mg PO 14 #7 tab Famotidine [Pepcid] 20 mg PO BID #60 tab Acetaminophen Tab [Tylenol] 650 mg PO Q4HR PRN tab PRN Reason: Fever and/ or Mild Pain Continue glyBURIDE [Diabeta] 5 mg PO BID Potassium Chloride [Klor-Con 10 ER] 10 meq PO DAILY Metoprolol Succinate [Toprol XL] 25 mg PO DAILY Aspirin [Adult Low Dose Aspirin EC] 81 mg PO DAILY Pyridostigmine [Mestinon] 180 mg PO BID@0900,2100 Rosuvastatin Calcium [Crestor] 40 mg PO HS Insulin Glargine,Hum.rec.anlog [Basaglar Kwikpen U-100] 65 unit SQ DAILY Mirabegron [Myrbetriq] 25 mg PO DAILY Semaglutide [Ozempic] 2 mg SQ Q7D Clopidogrel [Plavix] 75 mg PO DAILY Latanoprost [Latanoprost 0.005%] 1 drop BOTH EYES HS Vyvgart 20mg/Ml Solution 1 dose IV DIRECTED Levothyroxine Sodium [Synthroid] 125 mcg PO DAILY Pyridostigmine Mcandrews [Mestinon] 120 mg PO DAILY@1500 Empagliflozin/Linagliptin [Glyxambi 25 mg-5 mg Tablet] 1 tab PO DAILY Discharge Medication List Potassium Chloride [Klor-Con 10 ER] 10 meq PO DAILY 03/01/17 [History] glyBURIDE [Diabeta] 5 mg PO BID 03/01/17 [History] Aspirin [Adult Low Dose Aspirin EC] 81 mg PO DAILY 05/07/20 [History] Metoprolol Succinate [Toprol XL] 25 mg PO DAILY 05/07/20 [History] Pyridostigmine [Mestinon] 180 mg PO BID@0900,2100 05/07/20 [History] Rosuvastatin Calcium [Crestor] 40 mg PO HS 07/05/20 [History] Insulin Glargine,Hum.rec.anlog [Basaglar Kwikpen U-100] 65 unit SQ DAILY 03/07/24 [History] Levothyroxine Sodium [Synthroid] 125 mcg PO DAILY 03/07/24 [History] Mirabegron [Myrbetriq] 25 mg PO DAILY 03/07/24 [History] Pyridostigmine Mcandrews [Mestinon] 120 mg PO DAILY@1500 03/07/24 [History] Semaglutide [Ozempic] 2 mg SQ Q7D 03/07/24 [History] Clopidogrel [Plavix] 75 mg PO DAILY 05/01/24 [History] Empagliflozin/Linagliptin [Glyxambi 25 mg-5 mg Tablet] 1 tab PO DAILY 05/01/24 [History] Latanoprost [Latanoprost 0.005%] 1 drop BOTH EYES HS 06/11/24 [History] Vyvgart 20mg/Ml Solution 1 dose IV DIRECTED 06/11/24 [History] Acetaminophen Tab [Tylenol] 650 mg PO Q4HR PRN tab 06/16/24 [Rx] Famotidine [Pepcid] 20 mg PO BID #60 tab 06/16/24 [Rx] cefuroxime axetiL [Ceftin] 500 mg PO 14 #7 tab 06/16/24 [Rx] Follow up Appointment(s)/Referral(s): Dora Alexander MD [Primary Care Provider] - 06/23/24 2:00 pm Ny Villalba MD [STAFF PHYSICIAN] - 06/23/24 3:45 pm Activity/Diet/Wound Care/Special Instructions: Activity limited until follow-up Follow-up with primary care provider on discharge Follow-up with infectious disease in 1 week Continue taking medications as prescribed Discharge Disposition: HOME SELF-CARE
== END 2024-06-16 15:29 | disposition home or self-care (01) | DRG 871 ==
LOC: EC 03:29 → 3SCARD 07:03
PROVIDERS: ADMIT Hospitalist; ATTEND Hospitalist
PROC: B24BZZ4 Ultrasonography of Heart with Aorta, Transesophageal (ICD-10-PCS; principal; 2024-06-16 16:15)
DX: A41.9 Sepsis, unspecified organism (principal); G93.41 Metabolic encephalopathy; I31.39 Other pericardial effusion (noninflammatory); I25.3 Aneurysm of heart; Q21.12 Patent foramen ovale; R47.01 Aphasia; I70.0 Atherosclerosis of aorta; E11.9 Type 2 diabetes mellitus without complications; G70.00 Myasthenia gravis without (acute) exacerbation; Z79.4 Long term (current) use of insulin; E03.9 Hypothyroidism, unspecified; I10 Essential (primary) hypertension; I08.1 Rheumatic disorders of both mitral and tricuspid valves; Z95.828 Presence of other vascular implants and grafts; I25.10 Atherosclerotic heart disease of native coronary artery without angina pectoris; E78.5 Hyperlipidemia, unspecified; W01.0XXA Fall on same level from slipping, tripping and stumbling without subsequent striking against object, initial encounter; Z95.5 Presence of coronary angioplasty implant and graft; Z87.891 Personal history of nicotine dependence; Z79.02 Long term (current) use of antithrombotics/antiplatelets; Z79.82 Long term (current) use of aspirin; Z79.84 Long term (current) use of oral hypoglycemic drugs; Z79.890 Hormone replacement therapy; Z79.899 Other long term (current) drug therapy; Z86.79 Personal history of other diseases of the circulatory system; Z85.828 Personal history of other malignant neoplasm of skin; Z88.8 Allergy status to other drugs, medicaments and biological substances
CPT/HCPCS: 36415; 70450; 70496; 70498; 70553; 71045; 72125; 74177; 80048; 80053; 80061; 80143; 80179; 80202; 80306; 80320; 81003; 82550; 82565; 83036; 84145; 84439; 84443; 84484; 85025; 85610; 85730; 86695; 86696; 87040; 87449; 87636; 93005; 93306; 93312; 93320; 93325; 94760; 95816; 96361; 96365; 96366; 96367; 96368; 96375; 96376; 99291